=== PATIENT | female | born 1970 | race Caucasian/White ===

== ENCOUNTER → 2017-10-23 09:46 | Outpatient (POV) | payer OTHER, SELFPAY | PROVIDERS: PCP Internal Medicine; Visit Provider Otolaryngology | DX: J30.9 Allergic rhinitis, unspecified (principal) ==

== ENCOUNTER → 2017-11-09 07:56 | Outpatient (CLI) | payer OTHER, SELFPAY ==
--- NOTE | 2017-11-09 07:59 | CT_ITS ---
CT sinus wo con CLINICAL INDICATION: ITS.REASON: FRONTAL HEADACHE, RECURRENT SINUSITIS,CHRONIC VASOMOTOR RHIN ORDERING PHYSICIAN: Haritha Buenrostro MD PATIENT AGE: 47 years COMPARISON: None TECHNIQUE:Axial, sagittal, and coronal images are generated and reviewed without contrast FINDINGS: The paranasal sinuses have an unremarkable appearance. No significant mucosal thickening or air-fluid levels are evident. The ostiomeatal units of the maxillary sinuses are patent. No significant nasal septal deviation. Orbits are unremarkable. No obvious nasopharyngeal mass. Nonspecific bilateral parapharyngeal tonsillar calculi are noted. The mastoid sinuses are unremarkable. TMJs are unremarkable. IMPRESSION: Negative CT of the paranasal sinuses
== END ==
PROVIDERS: PCP Internal Medicine; Visit Provider Otolaryngology
DX: R51 Headache (principal); J32.9 Chronic sinusitis, unspecified; J30.0 Vasomotor rhinitis
CPT/HCPCS: 70486

== ENCOUNTER → 2017-11-27 11:05 | Outpatient (POV) | payer OTHER, SELFPAY | PROVIDERS: PCP Internal Medicine; Visit Provider Otolaryngology | DX: Z00.00 Encounter for general adult medical examination without abnormal findings (principal) ==

== ENCOUNTER → 2017-12-11 10:03 | Outpatient (CLI) | payer OTHER, SELFPAY | PROVIDERS: Visit Provider Otolaryngology | DX: J30.89 Other allergic rhinitis (principal) | CPT/HCPCS: 36415 ==

== ENCOUNTER → 2018-03-11 08:33 | Outpatient (CLI) | payer OTHER, SELFPAY ==
[2018-03-11 09:57] LABS: Hemoglobin A1C 9.9 % (0.0-7.0)
== END ==
PROVIDERS: Visit Provider Internal Medicine
DX: E11.9 Type 2 diabetes mellitus without complications (principal)
CPT/HCPCS: 83036

== ENCOUNTER → 2018-07-02 09:01 | Outpatient (CLI) | payer OTHER, SELFPAY ==
[2018-07-02 09:33] LABS: Hemoglobin A1C 11.2 % (0.0-7.0)
[2018-07-02 10:16] LABS: Alanine Aminotransferase 55 U/L (12-78); Albumin Level 3.8 gm/dL (3.4-5.0); Alkaline Phosphatase 124 U/L (46-116); Aspartate Amino Transferase 40 U/L (15-37); Bilirubin,Total 0.8 mg/dL (0.2-1.0); Blood Urea Nitrogen 13 mg/dL (7-18); Calcium 9.1 mg/dL (8.5-10.1); Carbon Dioxide 31 mmol/L (21.0-32.0); Chloride 99 mmol/L (98-107); Chol/HDL Ratio 4.6 (1-3.5); Cholesterol 202 mg/dL (140-200); Creatinine,Serum 0.93 mg/dL (0.55-1.02); Estimated Glomerular Filt Rate 64 ml/min (>60); GFR (African American) 78 ML/MIN (>60); Globulin 3.7 gm/dl (1.3-3.2); Glucose 293 mg/dL (74-106); HDL Cholesterol 44 mg/dL (29-89); Sodium 140 mmol/L (136-145); Total Protein,Serum 7.5 gm/dL (6.4-8.2)
[2018-07-02 10:34] LABS: Triglycerides 495 mg/dL (30-200)
== END ==
PROVIDERS: PCP Internal Medicine; Visit Provider Internal Medicine
DX: E11.9 Type 2 diabetes mellitus without complications (principal); E78.5 Hyperlipidemia, unspecified; I10 Essential (primary) hypertension
CPT/HCPCS: 36415; 80053; 80061; 83036

== ENCOUNTER → 2018-09-09 08:47 | Outpatient (CLI) | payer OTHER, SELFPAY ==
--- NOTE | 2018-09-09 08:48 | MM_ITS ---
MM Dig screening mamm BI w/CAD CAD Screening COMPARISON: Digital mammograms with CAD 08/02/2017 and 07/20/2016 INDICATION: There is no personal or family history of breast cancer. There has been previous biopsy right breast for benign disease. TECHNIQUE: Standard CC and MLO images were obtained. R2 CAD reviewed. FINDINGS: Prominent diffuse fibro glandular densities are seen throughout both breasts somewhat lessening the sensitivity of mammography. There are 2 biopsy clips again seen right breast. There are few benign-appearing microcalcifications in each breast. There is no suspicious lesion and there are no suspicious microcalcifications. IMPRESSION: Stable exam with diffusely dense parenchymal pattern and no suspicious lesion seen BI-RADS Category: 2 Benign Finding(s) RECOMMENDED FOLLOW-UP: 1YR - 1 YEAR FOLLOW-UP (A letter has been sent to the patient regarding results of the study.)
== END ==
PROVIDERS: PCP Internal Medicine; Visit Provider Nurse Practitioner Obstetrics & Gynecology
DX: Z12.31 Encounter for screening mammogram for malignant neoplasm of breast (principal)
CPT/HCPCS: 77067

== ENCOUNTER → 2019-01-08 09:22 | Outpatient (CLI) | payer OTHER, SELFPAY ==
[2019-01-08 10:53] LABS: Alanine Aminotransferase 47 U/L (12-78); Albumin/Globulin Ratio 1.1 (1.1-1.8); Alkaline Phosphatase 103 U/L (46-116); Anion Gap 16.6 mEq/L (5-15); Aspartate Amino Transferase 29 U/L (15-37); Bilirubin,Total 0.5 mg/dL (0.2-1.0); Blood Urea Nitrogen 16 mg/dL (7-18); Calcium 9.8 mg/dL (8.5-10.1); Carbon Dioxide 27 mmol/L (21.0-32.0); Chloride 100 mmol/L (98-107); Chol/HDL Ratio 4.5 (1-3.5); Cholesterol 180 mg/dL (140-200); Creatinine,Serum 1.01 mg/dL (0.55-1.02); Estimated Glomerular Filt Rate 59 ml/min (>60); GFR (African American) 71 ML/MIN (>60); Globulin 3.8 gm/dl (1.3-3.2); Glucose 147 mg/dL (74-106); HDL Cholesterol 40 mg/dL (29-89); LDL Cholesterol 68 mg/dL (0-130); Potassium 3.6 mmoL/L (3.5-5.1); Sodium 140 mmol/L (136-145); Total Protein,Serum 7.8 gm/dL (6.4-8.2); Triglycerides 359 mg/dL (30-200); VLDL Cholesterol 72 mg/dL (0-40)
[2019-01-08 11:38] LABS: Hemoglobin A1C 6.7 % (0.0-7.0)
[2019-01-10 08:50] LABS: Microalbumin, Urine 26.2 ug/mL (Not Estab.)
== END ==
PROVIDERS: Visit Provider Internal Medicine
DX: E11.9 Type 2 diabetes mellitus without complications (principal); E78.5 Hyperlipidemia, unspecified; I10 Essential (primary) hypertension; Z79.84 Long term (current) use of oral hypoglycemic drugs
CPT/HCPCS: 36415; 80053; 80061; 82043; 83036

== ENCOUNTER → 2019-07-29 16:58 | Outpatient (CLI) | payer OTHER, SELFPAY ==
[2019-07-29 18:35] LABS: Potassium 3.9 mmoL/L (3.5-5.1)
== END ==
PROVIDERS: Visit Provider Internal Medicine
DX: E87.6 Hypokalemia (principal)
CPT/HCPCS: 84132

== ENCOUNTER → 2019-08-01 12:28 | Outpatient (CLI) | payer OTHER, SELFPAY | PROVIDERS: PCP Internal Medicine; Visit Provider Internal Medicine Cardiovascular Disease | DX: R00.2 Palpitations (principal); R07.89 Other chest pain | CPT/HCPCS: 93270 ==

== ENCOUNTER → 2019-08-06 08:27 | Outpatient (CLI) | payer SELFPAY ==
--- NOTE | 2019-08-06 08:30 | CT_ITS ---
PROCEDURE: CT HEART W CALCIUM SCORE CLINICAL HISTORY: screening COMPARISON: No exams were available for comparison TECHNIQUE: Axial images obtained with sagittal and coronal reformats. All CT scans at the facility use one or more dose reduction, viz: automated exposure control, ma/kV adjustment per patient size (including targeted exams where dose is matched to indication, i.e. head), or iterative reconstruction technique. FINDINGS: The coronary artery calcium score is 400 indicating a moderate plaque burden with high cardiovascular disease risk.. Incidental findings include a calcified granuloma in the left lower lobe. Heart size is normal IMPRESSION: Moderate plaque burden with high cardiovascular disease risk Dictated by: Miguel Angel Ayers MD 08/07/2019 03:53 Electronically signed by Miguel Angel Ayers MD in [place] 08/07/2019 03:53
== END ==
PROVIDERS: PCP Internal Medicine; Visit Provider Internal Medicine Cardiovascular Disease
DX: Z13.6 Encounter for screening for cardiovascular disorders (principal)
CPT/HCPCS: 75571

== ENCOUNTER → 2019-08-07 06:55 | Outpatient (CLI) | payer OTHER, SELFPAY ==
--- NOTE | 2019-08-07 | CA_ITS ---
APPROVED REPORT Exam: Pharmacologic Technologist: Alok Burns, Ht: 5 ft 2 in Wt: 212 lbs BSA: 1.96 m2 HR: 73 bpm BP: 127/72 mmHg Rhythm: NSR Indications: Chest pain, Shortness of Air Medical History Medical History: Diabetic ??? Insulin, HTN, Hyperlipidemia, SOB Medications: Losartan,,,,, TopIRAMATE,,,,, SpirOLACTONE,,,,, Janumet,,,,, Pravastaten,,,,, AtenELOL,,,,, TrULicity,,,,, SertraliINE,,,,, Omepazole,,,,, LoraDATINE,,,,, Allergies: CLARITHROMYCIN,CRESTOR,NIACIN,ESCITALOPRAM Cardiac Risk Factors: HTN, Hyperlipidemia, Diabetes (insulin), SOB Stress Test Details Test: LEXISCAN Reversal agent Aminophyline 150.0 mg, given intravenously for SLOW IV PUSH. HR Resting HR: 69 bpm Max Heart Rate (APMHR): 171 bpm Max HR Achieved: 98 bpm Target HR (85% APMHR): 145 bpm % of APMHR: 57 Recovery HR: 94 bpm BP Resting BP: 127.0/72.0 mmHg Max BP: 124.0/65.0 mmHg Recovery BP: 122.0/67.0 mmHg ECG Resting ECG: NSR Clinical Exercise duration: 04:59 min Highest Stage Achieved: Exercise capacity: 1.0 METs Stress ECG Conclusion DURING INFUSION OF LEXISCAN PATIENT HAD SOA,NAUSEA,MALAISE AND HEADCHE WITH MILD CHEST PAIN. NO ARRHYTHMIAS/ECTOPY. NO SIGNIFICANT ST-T CHANGES. UNREMARKABLE LEXISCAN STRESS. MYOVIEW IMAGES REPORTED SEPARATELY. Test Summary RECOVERY 04:00 . . 81 . 124/ 71 . . Stage 1 01:00 . . 88 . . . . Stage 2 01:00 . . 97 . 124/ 65 . . Stage 3 01:00 . . 98 . 108/ 69 . . Stage 4 01:00 . . 95 . 116/ 67 . . Stage 4 01:59 . . 94 . 123/ 71 . Stop exercise at 04:59 RECOVERY 01:00 . . 92 . 122/ 67 . . RECOVERY 02:00 . . 87 . 122/ 67 . . RECOVERY 03:00 . . 82 . 119/ 71 . . RECOVERY 04:00 . . 81 . 124/ 71 . . RECOVERY 05:00 . . 80 . 124/ 71 . . RECOVERY 06:00 . . 76 . 123/ 77 . . RECOVERY 07:00 . . 77 . 123/ 77 . . RECOVERY 08:00 . . 76 . 116/ 72 . . RECOVERY 09:00 . . 74 . 116/ 72 . . RECOVERY 10:00 . . 74 . 116/ 72 . . RECOVERY 11:00 . . 0 . 116/ 72 . . RECOVERY 11:23 . . 0 . 116/ 72 . . Electronically signed by : Andres Paul, 08/07/2019 15:05:19
--- NOTE | 2019-08-07 06:58 | CA_ITS ---
APPROVED REPORT EXAM: Comprehensive 2D, Doppler, and color-flow Echocardiogram Shrinking Machine Operator: Laura Cifuentes RDCS Ht: 5 ft 2 in Wt: 214lbs BSA: 1.97 BP: 145/84 mmHg Indications: CP, SOA,SANDEEP ,PALPS,DM,HLP,ABN EKG 2D Dimensions LVOT 1.60 cm (M/F) 1.5-2.5 M-Mode Dimensions RVDd 2.20 cm (0.9-2.6) LA Diam 3.30 cm (1.9-4.0) LVDd 5.10 cm (3.5-5.7) Ao Diam 2.90 cm (2.0-3.7) LVDs 4.00 cm (3.5-5.7) AV Cusp 1.60 cm (1.5-2.6) IVSd 0.80 cm (0.6-1.1) PWd 0.80 cm (0.6-1.1) EF (Teich) 43.50% FS 21.60% EDV (Teich) 124.00 mL ESV (Teich) 70.00 mL LV Diastology E/A Ratio 1.3 MED E' 5.75 (< 7 cm/sec) E'/MED E' Ratio 14.90 (>14) LAT E' 8.38 (<10 cm/sec) E/LAT E' Ratio 10.20 (>14) Mitral Valve MV E Max [place]. 85.40 (40-130 cm/s) MV A Velocity 67.60 (40-130 cm/s) E/A Ratio 1.30 Left Ventricle Left atrium is mildly enlarged, left ventricle is normal size, mild concentric left ventricular hypertrophy, visually estimated ejection fraction 50%, there is moderate hypokinesis involving the inferior basal wall. Endocardial surfaces are poorly visualized. Grade 1 diastolic dysfunction seen with tissue Doppler evidence of raise left atrial pressure. Right Ventricle Right atrium and right ventricle mildly enlarged with normal contractility. Aortic Valve Aortic valve is thickened and calcified, there is no aortic stenosis aortic insufficiency. Mitral Valve Mitral valve is grossly normal, there is mild mitral regurgitation. Tricuspid Valve Tricuspid valve is grossly normal, there is mild tricuspid regurgitation. Tricuspid regurgitation jet velocity is inadequate for calculation of the right ventricular systolic pressure Pulmonic Valve Pulmonic valve is poorly visualized. Great Vessels Aortic root is normal size. Pericardium No significant pericardial effusion noted. Conclusion 1. Mild biatrial enlargement, normal left ventricular size, mild concentric left ventricular hypertrophy, visually estimated ejection fraction 50% with segmental wall motion abnormality described above, grade 1 diastolic dysfunction seen with tissue Doppler evidence of raise left atrial pressure. 2. Mildly enlarged right ventricle with normal contractility. 3. Mild mitral and tricuspid regurgitation. 4. No significant pericardial effusion noted. Electronically signed by : Andres Paul, 08/07/2019 14:09:48
--- NOTE | 2019-08-07 06:58 | NM_ITS ---
APPROVED REPORT Exam: Nuclear Stress Test Indication: SHORT OF AIR, PALPITATIONS AND FATIQUE Patient Location: Outpatient Stress Tech: Regina Elina [place] Tech:BRANDON Rios RT(R)(N) Ht: 5 ft 2 in Wt: 212 lbs Bra Size: 40d HR: 73 bpm BP: 127/72 mmHg BSA: 1.96 m2 BMI: 38.7 History: SHORT OF AIR, PALPITATIONS AND FATIQUE Procedure: Patient received a 0.4 mg of intravenous Lexiscan, resting heart rate 73 bpm, resting blood pressure 127/72 mmHg, with Lexiscan maximum heart rate achived was 80 bpm which is Less than 85 % of the maximum predicted heart rate and blood pressure was 124/65 mmHg. Electrocardiogram Resting electrocardiogram showed sinus rhythm nonspecific ST-T changes, with Lexiscan there is less than 1.[address] segment depression noted from the baseline EKG. The EKG portion of the Lexiscan Myoview is nondiagnostic. Cardiac Stress and Resting SPECT Images: Cardiac Stress and Resting SPECT images were obtained using technetium 99m Myoview 29.8 mCi stress and 10.3 mCi at rest. Gated SPECT with analysis of segmental wall motion and calculation of the ejection fraction also done. Cardiac stress and resting SPECT images show a fixed defect involving the anterolateral wall with normal contractility and the gated SPECT and normal perfusion of the apex is likely secondary to soft tissue attenuation, no reversible ischemia seen. Computer derived ejection fraction is over 65% with no regional wall motion abnormality, right ventricle is normal size and contractility. Conclusion: 1. The EKG portion of the Lexiscan Myoview is nondiagnostic. 2. No scintigraphic evidence of reversible ischemia seen, computer derived ejection fraction is over 65% with no regional wall motion abnormality, right ventricle is normal size and contractility. A fixed defect in the anterolateral wall is likely secondary to soft tissue attenuation. 3. Likely normal Lexiscan Myoview study. Electronically signed by : Andres Paul, 08/07/2019 15:15:49
--- NOTE | 2019-08-07 09:53 | HMH.ITSHM ---
Current Home Medications as stated by this patient Bonny Ye or account executive sales representative. [] atenolol janumet loratadine losartan topiramate omeprazole pravastatin spironolactone sertraline
== END ==
PROVIDERS: PCP Internal Medicine; Visit Provider Internal Medicine Cardiovascular Disease
DX: G47.33 Obstructive sleep apnea (adult) (pediatric) (principal); R06.83 Snoring; E11.69 Type 2 diabetes mellitus with other specified complication; E78.5 Hyperlipidemia, unspecified; E87.6 Hypokalemia; K21.9 Gastro-esophageal reflux disease without esophagitis; R00.2 Palpitations; R06.09 Other forms of dyspnea; R07.89 Other chest pain
CPT/HCPCS: 78452; 93017; 93306; 95806; A9502; J2785

== ENCOUNTER → 2019-08-11 08:52 | Outpatient (CLI) | payer OTHER, SELFPAY ==
[2019-08-11 10:40] LABS: Anion Gap 14.3 mEq/L (5-15); Blood Urea Nitrogen 21 mg/dL (7-18); Calcium 9.2 mg/dL (8.5-10.1); Carbon Dioxide 28 mmol/L (21.0-32.0); Chloride 100 mmol/L (98-107); Creatinine,Serum 1.12 mg/dL (0.55-1.02); Estimated Glomerular Filt Rate 52 ml/min (>60); GFR (African American) 63 ML/MIN (>60); Glucose 129 mg/dL (74-106); Potassium 3.3 mmoL/L (3.5-5.1); Sodium 139 mmol/L (136-145)
== END ==
PROVIDERS: Visit Provider Internal Medicine Cardiovascular Disease
DX: E11.69 Type 2 diabetes mellitus with other specified complication (principal); E78.5 Hyperlipidemia, unspecified; E87.6 Hypokalemia; G47.33 Obstructive sleep apnea (adult) (pediatric); K21.9 Gastro-esophageal reflux disease without esophagitis; R00.2 Palpitations; R06.09 Other forms of dyspnea; R06.83 Snoring; R07.89 Other chest pain
CPT/HCPCS: 80048; 83880

== ENCOUNTER → 2019-08-18 09:19 | Outpatient (CLI) | payer OTHER, SELFPAY ==
[2019-08-18 10:49] LABS: Anion Gap 11.8 mEq/L (5-15); Blood Urea Nitrogen 17 mg/dL (7-18); Calcium 9.2 mg/dL (8.5-10.1); Carbon Dioxide 28 mmol/L (21.0-32.0); Chloride 102 mmol/L (98-107); Creatinine,Serum 1.08 mg/dL (0.55-1.02); Estimated Glomerular Filt Rate 54 ml/min (>60); GFR (African American) 65 ML/MIN (>60); Glucose 136 mg/dL (74-106); Potassium 3.8 mmoL/L (3.5-5.1); Sodium 138 mmol/L (136-145)
== END ==
PROVIDERS: Visit Provider Physician Assistant
DX: R00.0 Tachycardia, unspecified (principal); E87.6 Hypokalemia; K21.9 Gastro-esophageal reflux disease without esophagitis; R94.31 Abnormal electrocardiogram [ECG] [EKG]; R06.83 Snoring; R07.89 Other chest pain; E78.5 Hyperlipidemia, unspecified; R00.2 Palpitations; E11.9 Type 2 diabetes mellitus without complications; G47.33 Obstructive sleep apnea (adult) (pediatric); R06.00 Dyspnea, unspecified
CPT/HCPCS: 36415; 80048

== ENCOUNTER → 2019-08-20 14:57 | Outpatient (CLI) | payer OTHER, SELFPAY ==
--- NOTE | 2019-08-20 15:05 | CT_ITS ---
PROCEDURE: CT CHEST WO/W CON CLINCAL INDICATION: dyspnea Shortness of breath, fullness feeling in mid chest, enlarged right heart COMPARISON: CT HEART W CALCIUM SCORE from 08/06/2019 TECHNIQUE: IV Contrast: 75ml Optiray 350 Axial images obtained with sagittal and coronal reformats. All CT scans at the facility use one or more dose reduction, viz: automated exposure control, ma/kV adjustment per patient size (including targeted exams where dose is matched to indication, i.e. head), or iterative reconstruction technique. FINDINGS: HEART,AORTA,PULMONARY ARTERIES there are coronary artery calcifications. No evidence of aortic aneurysm MEDIASTINAL AND HILAR STRUCTURES: Thyroid gland is enlarged. There is nodularity of the isthmus with a nodular area in the isthmus at 1.6 cm. Consider thyroid ultrasound further evaluation. There are few scattered small mediastinal lymph nodes measuring up to 1.3 cm in the left periaortic region at the aortic arch. No mediastinal or hilar mass. LUNGS: 3 mm subpleural nodule right upper lobe anteriorly. Atelectatic or fibrotic change right costophrenic angle. 4 mm subpleural nodule left apex. Calcified granuloma left lung base posteriorly PLEURAL SPACES: No significant effusion. No evidence of pneumothorax. BONY STRUCTURES: Degenerative changes thoracic spine. LYMPH NODES: No enlarged lymph nodes evident. UPPER ABDOMEN: Status post cholecystectomy ADDITIONAL FINDINGS: No other significant abnormalities. IMPRESSION: 1. No acute findings. 2. Enlarged thyroid gland with nodularity of the isthmus. Consider ultrasound for further evaluation. 3. 3 mm right upper lobe and 4 mm left upper lobe nodules. These are nonspecific and too small to categorize. Consider 12 month follow-up 4. Coronary artery calcifications Dictated by: Miguel Angel Ayers MD 08/21/2019 04:48 Electronically signed by Miguel Angel Ayers MD in [place] 08/21/2019 04:48
== END ==
PROVIDERS: PCP Internal Medicine; Visit Provider Physician Assistant
DX: R06.09 Other forms of dyspnea (principal); E78.5 Hyperlipidemia, unspecified; E11.69 Type 2 diabetes mellitus with other specified complication; Z79.84 Long term (current) use of oral hypoglycemic drugs; K21.9 Gastro-esophageal reflux disease without esophagitis; G47.33 Obstructive sleep apnea (adult) (pediatric)
CPT/HCPCS: 71270; Q9967

== ENCOUNTER → 2019-08-29 13:26 | Outpatient (CLI) | payer OTHER, SELFPAY ==
--- NOTE | 2019-08-29 13:27 | US_ITS ---
PROCEDURE: US THYROID CLINICAL INDICATION: dyspnea, thyroid nodules The thyroid nodule seen on recent CT scan COMPARISON: CT CHEST WO/W CON from 08/20/2019 FINDINGS: Right lobe: 4.6 x 1.5 x 1.6 cm the. There is heterogeneous echogenicity of the lower pole with 2 cystic areas at 5 and 4 mm. These may be part of the larger nodule at 15 x 12 mm. This is difficult to ascertain and follow-up is suggested. Left lobe: 4.6 x 1.6 x 2.1 cm. There are 3 cysts of the left lobe the largest at 13 mm. Isthmus: Thickened at 7 mm Additional findings: IMPRESSION: Bilateral thyroid cysts. Two cyst on the right could be part of the larger nodule versus heterogeneous echogenicity. Suggest 6 month follow-up Dictated by: Miguel Angel Ayers MD 08/29/2019 16:20 Electronically signed by Miguel Angel Ayers MD in [place] 08/29/2019 16:20
== END ==
PROVIDERS: PCP Internal Medicine; Visit Provider Physician Assistant
DX: E04.1 Nontoxic single thyroid nodule (principal)
CPT/HCPCS: 76536

== ENCOUNTER → 2019-09-03 11:04 | Outpatient (CLI) | payer OTHER, SELFPAY ==
--- NOTE | 2019-09-03 11:08 | XR_ITS ---
PROCEDURE: XR CHEST 2V CLINICAL HISTORY: COUGH, CONGESTION, ARTIS COMPARISON: CXR CHEST(2 VIEWS-NOT PORTABLE) from 01/12/2014 CXR CHEST(2 VIEWS-NOT PORTABLE) from 11/20/2014 XR CHEST 2V from 07/25/2019 CT CHEST WO/W CON from 08/20/2019 FINDINGS: The cardiomediastinal silhouette and pulmonary vascularity are within normal limits. The lungs are clear without infiltrates, suspicious nodules, or pleural effusions. No acute bony abnormalities. IMPRESSION: No acute findings. Dictated by: Miguel Angel Ayers MD 09/03/2019 11:26 Electronically signed by Miguel Angel Ayers MD in [place] 09/03/2019 11:26
== END ==
PROVIDERS: PCP Internal Medicine; Visit Provider Internal Medicine
DX: R05 Cough (principal); R09.81 Nasal congestion; G44.83 Primary cough headache
CPT/HCPCS: 71046

== ENCOUNTER → 2019-09-08 09:41 | Outpatient (CLI) | payer OTHER, SELFPAY | PROVIDERS: Visit Provider Internal Medicine Cardiovascular Disease | DX: R06.09 Other forms of dyspnea (principal); E11.69 Type 2 diabetes mellitus with other specified complication; E78.5 Hyperlipidemia, unspecified; G47.33 Obstructive sleep apnea (adult) (pediatric); K21.9 Gastro-esophageal reflux disease without esophagitis; R06.83 Snoring | CPT/HCPCS: 36415; 83880 ==

== ENCOUNTER → 2019-10-07 09:12 | Outpatient (CLI) | payer OTHER, SELFPAY ==
[2019-10-07 10:33] LABS: Alanine Aminotransferase 48 U/L (12-78); Albumin Level 3.7 gm/dL (3.4-5.0); Albumin/Globulin Ratio 1.1 (1.1-1.8); Alkaline Phosphatase 99 U/L (46-116); Anion Gap 16.6 mEq/L (5-15); Aspartate Amino Transferase 6 U/L (15-37); Bilirubin,Total 0.5 mg/dL (0.2-1.0); Blood Urea Nitrogen 16 mg/dL (7-18); Calcium 8.9 mg/dL (8.5-10.1); Carbon Dioxide 28 mmol/L (21.0-32.0); Chloride 97 mmol/L (98-107); Cholesterol 178 mg/dL (140-200); Creatinine,Serum 0.94 mg/dL (0.55-1.02); Estimated Glomerular Filt Rate 63 ml/min (>60); GFR (African American) 77 ML/MIN (>60); Globulin 3.4 gm/dl (1.3-3.2); Glucose 144 mg/dL (74-106); HDL Cholesterol 45 mg/dL (29-89); LDL Cholesterol 77 mg/dL (0-130); Potassium 3.6 mmoL/L (3.5-5.1); Sodium 138 mmol/L (136-145); Total Protein,Serum 7.1 gm/dL (6.4-8.2); Triglycerides 280 mg/dL (30-200); VLDL Cholesterol 56 mg/dL (0-40)
== END ==
PROVIDERS: Visit Provider Internal Medicine
DX: E11.9 Type 2 diabetes mellitus without complications (principal); E78.5 Hyperlipidemia, unspecified; I10 Essential (primary) hypertension
CPT/HCPCS: 36415; 80053; 80061; 83036

== ENCOUNTER → 2020-02-27 14:16 | Outpatient (CLI) | payer OTHER, SELFPAY ==
--- NOTE | 2020-02-27 14:23 | XR_ITS ---
PROCEDURE: XR MULTIPLE SPINE 6+V CLINICAL INDICATION: CERVICALGIA,LUMBAGO W/RT SCIATICA COMPARISON: CT CHEST WO/W CON from 08/20/2019 FINDINGS: Cervical spine five views: Normal alignment. No fracture or dislocation. No lytic or blastic change. There are prominent transverse processes C7 on both sides. Incidental carotid artery calcifications are noted. The foramina are patent. Lumbar spine five views: Normal alignment. Minimal endplate hypertrophic changes at L 2 to L5. Slight decrease in the disc space at L3-L4. No fracture or dislocation. No lytic or blastic change. 3 mm stone is present along the lower pole of the right kidney with a 4 mm stone along the lower pole of the left kidney IMPRESSION: 1. Prominent bilateral transverse processes of the cervical spine. 2. Mild degenerative changes of the lumbar 3. No acute finding 4. Bilateral nephrolithiasis Dictated by: Miguel Angel Ayers MD 02/27/2020 15:33 Electronically signed by Miguel Angel Ayers MD in [place] 02/27/2020 15:33
== END ==
PROVIDERS: PCP Internal Medicine; Visit Provider Internal Medicine
DX: M54.41 Lumbago with sciatica, right side (principal); M54.2 Cervicalgia
CPT/HCPCS: 72084

== ENCOUNTER → 2020-03-19 14:54 | Outpatient (CLI) | payer OTHER, SELFPAY | PROVIDERS: PCP Internal Medicine; Visit Provider Nurse Practitioner Family | DX: G47.33 Obstructive sleep apnea (adult) (pediatric) (principal) | CPT/HCPCS: 94762 ==

== ENCOUNTER → 2020-05-26 09:55 | Outpatient (CLI) | payer OTHER, MEDICAID, SELFPAY ==
[2020-05-26 10:54] LABS: Hemoglobin A1C 8.6 % (4.0-6.0)
[2020-05-26 11:04] LABS: Erythrocyte Sedimentation Rate 26 mm/hr (0-20)
[2020-05-26 12:06] LABS: Alanine Aminotransferase 59 U/L (12-78); Albumin Level 4.4 g/dl (3.5-5.0); Albumin/Globulin Ratio 1.5 (1.1-1.8); Alkaline Phosphatase 152 U/L (38-126); Anion Gap 13.9 mEq/L (5-15); Aspartate Amino Transferase 69 U/L (14-36); Bilirubin,Total 0.7 mg/dl (0.2-1.3); Blood Urea Nitrogen 13 mg/dl (7-17); Calcium 9.3 mg/dl (8.4-10.2); Carbon Dioxide 31 mmol/L (22.0-30.0); Chloride 94 mmol/L (98-107); Chol/HDL Ratio 3.2 (1-3.5); Cholesterol 168 mg/dl (140-200); Estimated Glomerular Filt Rate 89 ml/min (>60); GFR (African American) 107 ML/MIN (>60); Globulin 2.9 g/dL (1.3-3.2); Glucose 205 mg/dl (74-100); HDL Cholesterol 52 mg/dl (40-60); Potassium 3.9 mmoL/L (3.5-5.1); Sodium 135 mmol/L (136-145); Total Protein,Serum 7.3 g/dl (6.3-8.2); Triglycerides 331 mg/dl (30-150); Uric Acid 4.6 mg/dl (2.5-6.2); VLDL Cholesterol 66 mg/dL (0-40)
[2020-05-26 14:36] LABS: Creatinine,Urine Random 136 mg/dL (Not Estab.)
[2020-05-27 08:57] LABS: RA Latex Turbid. <10.0 IU/mL (0.0-13.9)
[2020-05-28 09:10] LABS: Antinuclear Antibodies, IFA Negative (.)
== END ==
PROVIDERS: Visit Provider Internal Medicine
DX: E11.65 Type 2 diabetes mellitus with hyperglycemia (principal); E66.01 Morbid (severe) obesity due to excess calories; E78.5 Hyperlipidemia, unspecified; I10 Essential (primary) hypertension; M25.50 Pain in unspecified joint
CPT/HCPCS: 36415; 80053; 80061; 82043; 82570; 83036; 84550; 85651; 86038; 86431

== ENCOUNTER → 2020-06-04 14:23 | Outpatient (CLI) | payer OTHER, MEDICAID, SELFPAY ==
--- NOTE | 2020-06-04 14:26 | US_ITS ---
PROCEDURE: US THYROID CLINICAL INDICATION: 6 MONTH FOLLOW UP FOR NODULE Follow-up thyroid nodules COMPARISON: US US THYROID from 08/29/2019 FINDINGS: Right lobe: 4.2 x 1.7 x 1.6 cm. There is a hypoechoic nodule in the lower pole at 8 mm not significantly changed. Left lobe: 4.7 x 1.6 x 2 cm. Several hypoechoic nodules are present the largest in the mid polar region at 14 x 7 mm not significantly changed consistent with a cyst. Isthmus: Thickened at 6 mm Additional findings: IMPRESSION: Mildly enlarged thyroid with bilateral cyst not significantly changed Dictated by: Miguel Angel Ayers MD 06/04/2020 16:20 Miguel Angel Ayers MD in [place] 06/04/2020 16:20
== END ==
PROVIDERS: PCP Internal Medicine; Visit Provider Internal Medicine
DX: E04.1 Nontoxic single thyroid nodule (principal)
CPT/HCPCS: 76536

== ENCOUNTER → 2020-06-17 11:00 | Outpatient (CLI) | payer OTHER, MEDICAID, SELFPAY ==
--- NOTE | 2020-06-17 11:04 | XR_ITS ---
PROCEDURE: XR WRIST LT MIN 3V CLINICAL INDICATION: left wrist pain/ CTS COMPARISON: CR XR WRIST RT MIN 3V from 06/17/2020 FINDINGS: No fracture or dislocation. No lytic or blastic change. There is normal mineralization. The joint spaces are well-preserved. No significant degenerative/arthritic changes. No erosive changes evident. Other findings:None. IMPRESSION: No acute findings. Dictated by: Miguel Angel Ayers MD 06/17/2020 11:26 Miguel Angel Ayers MD in [place] 06/17/2020 11:26
--- NOTE | 2020-06-17 11:04 | XR_ITS ---
PROCEDURE: XR WRIST RT MIN 3V CLINICAL INDICATION: RIGHT WRIST PAIN/ CTS COMPARISON: No exams were available for comparison FINDINGS: No fracture or dislocation. No lytic or blastic change. There is normal mineralization. The joint spaces are well-preserved. No significant degenerative/arthritic changes. No erosive changes evident. Other findings:None. IMPRESSION: No acute findings. Dictated by: Miguel Angel Ayers MD 06/17/2020 11:26 Miguel Angel Ayers MD in [place] 06/17/2020 11:26
== END ==
PROVIDERS: PCP Internal Medicine; Visit Provider Orthopaedic Surgery
DX: M25.531 Pain in right wrist (principal); M25.532 Pain in left wrist
CPT/HCPCS: 73110

== ENCOUNTER 2020-06-19 18:48 | Emergency (ER) | payer OTHER, MEDICAID, SELFPAY ==
--- NOTE | 2020-06-19 18:52 | HMH.EDGENADL ---
ED Disposition Clinical Impression: Right flank pain, Nephrolithiasis Disposition: Home, Self-Care Condition on Discharge: Good Additional Instructions: Take medications as prescribed. Follow-up with your PCP for further evaluation. If you have any new, changing, worsening, or concerning symptoms, come back to the emergency department. Prescriptions: Hydrocodone/Acetaminophen [[place] 5-325 Tablet] 1 each PO Q8 3 Days #9 tablet Tamsulosin HCl 0.4 mg PO DAILY 5 Days #5 cap Transmission Status: Sent to [facility] Ondansetron [Zofran 4mg ODT] 4 mg PO Q8 PRN 3 Days #9 tab.rapdis PRN Reason: Nausea Transmission Status: Sent to [facility] Referrals: Maurice Kessler [Primary Care Provider] - Time of Disposition: 19:42 - Critical Care Critical Care Time: No Attestation: On , the high probability of a clinically significant, sudden or life threatening deterioration of the following system(s) required my full and direct attention, intervention and personal management. The time I documented below is in addition to time spent performing reported procedures but includes the following listed in this critical care notation. Medical Decision Making - Medical Records Medical records reviewed: Yes: I reviewed the patient's medical records. MR Comment: 50-year-old female presents emergency department with right flank pain. She has mild CVA tenderness on the right. She arrives to the ED hemodynamically stable, with reassuring vital signs, and looks well on exam. Nephrolithiasis and pyelonephritis considered. I doubt acute aortic catastrophe. She is neurologically intact throughout. Will get labs including urine and CT scan and reassess. On reassessment, patient remains well. 2mm kidney stone at UVJ on CT scan, mild hydronephrosis, patient feels some better after treatment here. - Alex Inquiry Pt receiving controlled substance: No Vital Signs: 06/19/20 18:56 Temperature 98.5 F Temperature Source Oral Pulse Rate [Right Radial] 98 H Respiratory Rate 17 Blood Pressure [Right Arm] 168/93 H Blood Pressure Mean [Right Arm] 118 02 Sat by Pulse Oximetry 98 Oxygen Delivery Method Room Air - Lab Data Lab Results 06/19/20 19:05: WBC 11.0 H, RBC 4.31, Hgb 13.7, Hct 39.4, MCV 91.4, MCH 31.8 H, MCHC 34.8, RDW 14.3, Plt Count 234, MPV 7.4, Neut % (Auto) 73.5, Lymph % (Auto) 18.5, [place] % (Auto) 5.1, Eos % (Auto) 2.4, Baso % (Auto) 0.5, Neut # (Auto) 8.1 H, Lymph # (Auto) 2.0, [place] # (Auto) 0.6, Eos # (Auto) 0.3, Baso # (Auto) 0.1 06/19/20 19:10: Urine Color Yellow, Urine Appearance Clear, Urine pH 7.0, Ur Specific [place] 1.020, Urine Protein Negative, Urine Glucose (UA) 3+, Urine Ketones Negative, Urine Blood 1+, Urine Nitrate Negative, Urine Bilirubin Negative, Urine Urobilinogen 0.2, Ur Leukocyte Esterase Negative, Urine RBC 5-10, Ur Squamous Epith Cells 3-5 Result diagrams: 06/19/20 19:05 Orders (Tests/Meds): ED MEDICATIONS Generic Name Dose Route Start Last Admin Trade Name Freq PRN Reason Stop Dose Admin Sodium Chloride 1,000 mls @ 999 mls/hr 06/19/20 19:15 06/19/20 19:33 Sod Chlor 0.9% 1000ml Bag IV 06/19/20 20:15 999 mls/hr .Q1H1M ЕЛЕНА Administration Tamsulosin HCl 0.4 mg 06/19/20 21:00 Flomax 0.4mg Capsule PO 07/19/20 20:59 HS ЕЛЕНА Discontinued Medications Generic Name Dose Route Start Last Admin Trade Name Freq PRN Reason Stop Dose Admin Ketorolac Tromethamine 15 mg 06/19/20 19:38 Toradol 30mg/Ml Vial IV 06/19/20 19:39 ONCE ONE Morphine Sulfate 2 mg 06/19/20 19:08 06/19/20 19:36 Morphine 2mg/Ml Syringe IV 06/19/20 19:09 2 mg ONCE ONE Administration Ondansetron HCl 4 mg 06/19/20 19:09 06/19/20 19:36 Zofran 4mg/2ml Vial IV 06/19/20 19:10 4 mg ONCE ONE Administration ORDERS Category Date Time Status CT abdomen pelvis wo con Stat Cat Scan 06/19/20 18:59 Taken Amylase Stat Lab 06/19/20 19:05 Received Comprehensive [place]
[2020-06-19 18:56] VITALS: BP 168/93; PULSE 98; RESP 17; TEMP 36.9; O2SAT 98; BMI 40.9
--- NOTE | 2020-06-19 18:59 | CT_ITS ---
PROCEDURE: CT ABDOMEN PELVIS WO CON CLINICAL INDICATION: right flank pain Right flank pain COMPARISON: No exams were available for comparison TECHNIQUE: Axial images obtained with sagittal and coronal reformats. All CT scans at the facility use one or more dose reduction, viz: automated exposure control, ma/kV adjustment per patient size (including targeted exams where dose is matched to indication, i.e. head), or iterative reconstruction technique. FINDINGS: LOWER THORAX: There is minimal atelectatic change in the right lung base laterally. ABDOMEN & PELVIS: There is mild diffuse hepatic steatosis. There are post cholecystectomy changes. The spleen, adrenal glands, pancreas, has an unremarkable appearance there are nonobstructing bilateral renal calculi measuring up to 5 mm in the lower pole on the left. There is mild dilatation of the right renal pelvicaliceal system and right ureter secondary to a 3 mm stone at the right ureterovesical junction. There is scattered small mesenteric and retroperitoneal lymph nodes. There is mild distension of the stomach filled with particular matter. No intestinal obstruction or free air. The bowel gas pattern is nonspecific. There is a 4 x 3 cm cystic lesion in the right adnexa a 3 cm cystic lesion in the left adnexa. There are surgical clips in the right lateral abdominal area and a clip in the anterior pelvic region. No acute bony anomalies. IMPRESSION: 1. Mild right hydronephrosis and ureteral dilatation secondary to a 3 mm stone in the right ureterovesical junction with other bilateral renal calculi. 2. Bilateral ovarian cysts Dictated by: Miguel Angel Ayers MD 06/20/2020 07:29 Miguel Angel Ayers MD in [place] 06/20/2020 07:29
[2020-06-19 19:17] LABS: Microscopic, Urine URINE MICROSCOPIC (MICROSCOPIC)
[2020-06-19 19:19] LABS: Basophils # 0.1 K/mm3 (0-0.2); Basophils % 0.5 % (0.1-2.0); Eosinophils # 0.3 K/mm3 (0.0-0.4); Eosinophils % 2.4 % (0.1-12.0); Hematocrit 39.4 % (37.0-47.0); Hemoglobin 13.7 g/dL (12.2-16.2); Lymphocytes % 18.5 % (10-50); Mean Corpuscular HGB Conc 34.8 g/dL (31.8-35.4); Mean Corpuscular Hemoglobin 31.8 pg (27.0-31.2); Mean Corpuscular Volume 91.4 fl (81-99); Mean Platelet Volume 7.4 fl (7.4-10.4); Monocytes # 0.6 K/mm3 (0.1-1.0); Monocytes % 5.1 % (1.7-9.3); Neutrophils # 8.1 K/mm3 (1.8-7.8); Neutrophils % 73.5 % (37.0-80.0); Platelet Count 234 K/mm3 (142-424); Red Blood Count 4.31 M/mm3 (4.20-5.40); Red Cell Distribution Width 14.3 % (11.5-17.5)
[2020-06-19 19:24] LABS: Appearance,Urine CLEAR (Clear); Bilirubin,Urine Negative (Negative); Blood, Urine 1+ (Negative); Color,Urine YELLOW (Yellow); Glucose,Urine (UA) 3+ (Negative); Ketones,Urine Negative (Negative); Leukocyte Esterase,Urine Negative (Negative); Nitrate,Urine Negative (Negative); Protein,Urine Negative (Negative); Urobilinogen,Urine 0.2 EU/dl (0.2)
[2020-06-19 19:33] LABS: Alanine Aminotransferase 49 U/L (12-78); Albumin Level 4.5 g/dl (3.5-5.0); Albumin/Globulin Ratio 1.3 (1.1-1.8); Alkaline Phosphatase 165 U/L (38-126); Amylase 163 U/L (30-110); Anion Gap 15.8 mEq/L (5-15); Aspartate Amino Transferase 54 U/L (14-36); Bilirubin,Total 0.6 mg/dl (0.2-1.3); Blood Urea Nitrogen 18 mg/dl (7-17); Calcium 9.8 mg/dl (8.4-10.2); Carbon Dioxide 29 mmol/L (22.0-30.0); Chloride 96 mmol/L (98-107); Creatinine Clearance Estimated 120 mL/min (50-200); Estimated Glomerular Filt Rate 66 ml/min (>60); GFR (African American) 80 ML/MIN (>60); Globulin 3.5 g/dL (1.3-3.2); Glucose 296 mg/dl (74-100); Lipase 129 U/L (23-300); Potassium 3.8 mmoL/L (3.5-5.1); Sodium 137 mmol/L (136-145)
[2020-06-19 20:52] VITALS: BP 144/83; PULSE 86; RESP 18; O2SAT 97
[2020-06-19 21:00] VITALS: BP 146/83; PULSE 87; RESP 16; TEMP 36.9; O2SAT 98
== END 2020-06-19 21:14 | disposition home or self-care (01) ==
PROVIDERS: Emergency Medicine; Emergency Provider Emergency Medicine; PCP Internal Medicine
DX: N20.0 Calculus of kidney (principal); E78.5 Hyperlipidemia, unspecified; K21.9 Gastro-esophageal reflux disease without esophagitis; E11.9 Type 2 diabetes mellitus without complications; F41.8 Other specified anxiety disorders; G43.709 Chronic migraine without aura, not intractable, without status migrainosus; Z88.1 Allergy status to other antibiotic agents; Z79.899 Other long term (current) drug therapy
CPT/HCPCS: 74176; 80053; 81001; 82150; 83690; 85025; 96365; 96375; 99284; J2405

== ENCOUNTER → 2020-07-26 09:16 | Outpatient (CLI) | payer OTHER, MEDICAID, SELFPAY ==
[2020-07-26 09:19] LABS: MANUAL DIFFERENTIAL MANUAL DIFFERENTIAL (MANUAL DIFF)
[2020-07-26 09:57] LABS: Basophils % 0.4 % (0.1-2.0); Eosinophils # 0.2 K/mm3 (0.0-0.4); Eosinophils % 1.9 % (0.1-12.0); Hematocrit 40.7 % (37.0-47.0); Lymphocytes # 1.9 K/mm3 (0.7-4.5); Lymphocytes % 21.2 % (10-50); Mean Corpuscular HGB Conc 34.4 g/dL (31.8-35.4); Mean Corpuscular Hemoglobin 31.2 pg (27.0-31.2); Mean Corpuscular Volume 90.7 fl (81-99); Mean Platelet Volume 7.3 fl (7.4-10.4); Monocytes # 0.5 K/mm3 (0.1-1.0); Monocytes % 5.5 % (1.7-9.3); Neutrophils # 6.2 K/mm3 (1.8-7.8); Neutrophils % 71.1 % (37.0-80.0); Platelet Count 227 K/mm3 (142-424); Red Blood Count 4.49 M/mm3 (4.20-5.40); Red Cell Distribution Width 14.4 % (11.5-17.5); White Blood Count 8.8 K/mm3 (4.8-10.8)
[2020-07-26 10:52] LABS: Alanine Aminotransferase 47 U/L (12-78); Albumin Level 4.5 g/dl (3.5-5.0); Albumin/Globulin Ratio 1.4 (1.1-1.8); Alkaline Phosphatase 145 U/L (38-126); Anion Gap 14.7 mEq/L (5-15); Aspartate Amino Transferase 58 U/L (14-36); Bilirubin,Total 0.7 mg/dl (0.2-1.3); Blood Urea Nitrogen 16 mg/dl (7-17); Calcium 9.9 mg/dl (8.4-10.2); Carbon Dioxide 31 mmol/L (22.0-30.0); Chloride 96 mmol/L (98-107); Estimated Glomerular Filt Rate 59 ml/min (>60); GFR (African American) 71 ML/MIN (>60); Globulin 3.2 g/dL (1.3-3.2); Glucose 141 mg/dl (74-100); Potassium 3.7 mmoL/L (3.5-5.1); Sodium 138 mmol/L (136-145); Total Protein,Serum 7.7 g/dl (6.3-8.2)
[2020-07-26 10:59] LABS: Coronavirus 19 IgG Antibody Negative (Negative); Coronavirus 19 IgM Antibody Negative (Negative)
[2020-07-26 12:06] LABS: Eosinophils % 1 % (0-3); Lymphocytes % 21 % (10-50); Monocytes % 7 % (2-9); Neutrophils % 70 % (42-76); Platelet Estimate Normal; RBC Morphology Normal; Total Cells Counted 100
== END ==
PROVIDERS: Visit Provider Orthopaedic Surgery
DX: Z01.818 Encounter for other preprocedural examination (principal); M65.30 Trigger finger, unspecified finger; G56.01 Carpal tunnel syndrome, right upper limb
CPT/HCPCS: 36415; 80053; 85007; 85014; 85018; 85048; 85049; 86328

== ENCOUNTER 2020-07-27 06:07 | Day surgery (SDC) | payer OTHER, MEDICAID, SELFPAY ==
[2020-07-23 10:53] VITALS: BMI 40.9
[2020-07-27] VITALS (11 sets, daily range): BP systolic 141–184; BP diastolic 47–104; PULSE 84–98; RESP 18–30; TEMP 36.1–43; O2SAT 92–96
[2020-07-27 06:40] LABS: HCG Qualitative, Serum Negative (Negative)
[2020-07-27 06:58] LABS: POC Glucose,Bedside 134 (70-110)
--- NOTE | 2020-07-27 08:08 | HMH.ANESCL ---
[facility] Anesthesia Checklist - Patient Identification Patient Identification: Arm Band - Structural Data Admitted From: Home Planned Operative Procedure/s: right ctr, trigger finger release Consent for Planned Operative Procedure(s) Verified: Yes Verified Documents: Surgical Consent, History and Physical - NPO Status Verified Time NPO: 00:00 - Additional verifications Anesthesia Reactions: No Hx Blood Transfusions: No Blood Transfusion Reaction: No - Airway Assessment C-Spine Mobility Assessed: Yes (mp2) TMJ Mobility Assessed: Yes Dentition: Good Dentition - Neurological Assessment Level of Consciousness: Awake, Alert - Anesthesia Plan Anesthesia Risk discussed: Yes Anesthesia Plan: Verified ASA Class: III Anesthesia Type: MAC w/Block (Supraclavicular block- risks/benefits explained. Pt verbalizes understanding) [facility] History Medical History: Reports:: Anxiety, Arrhythmia, Asthma, Depression, Diabetes Mellitus Type 2, Gastroesophageal Reflux Disease(GERD), Hyperlipidemia, Hypertension, Migraine, MRSA (2010), Palpitations Denies:: Cancer, Diabetes Mellitus Type 1, Internal Pacemaker, Seizures *Have you ever received a pneumonia vaccine?: No *Have you received a flu vaccine this season?: Yes Other Medical History: Denies: Blood Transfusion Reaction Anesthesia experience/problems:: nac Other Surgeries: Yes: Cholecystectomy, Other. No: Pacemaker Amputation: No Fractures: No - *Social History Last grade of school completed: High school graduate Smoking Status: Never smoker Alcohol Intake: never Alcohol Intake Frequency:: other Substance Use Type: denies use *Occupational Status:: employed Housing: house Household Members: spouse *Travel in the last 8 weeks: None - Psychiatric History Pschychiatric History:: Reports:: Anxiety, Depression Family Hx:: Diabetes, Heart Attack, Stroke, Hypertension, Hyperlipidemia, Asthma, Thyroid Disorder, Kidney Disease
[2020-07-27 10:58] LABS: POC Glucose,Bedside 152 (70-110)
--- NOTE | 2020-07-27 20:34 | HMH.OPNOTE ---
Date of procedure: 07/27/20 Pre-op Diagnosis:: 1) R carpal tunnel syndrome 2) R thumb, middle, ring trigger digits Post-op Diagnosis:: 1) R carpal tunnel syndrome 2) R thumb, middle, ring trigger digits Procedure performed:: 1) R carpal tunnel release 2) trigger finger release of R thumb, middle, ring fingers Surgeon:: Haritha Gaytan MD Bottle Labeler(s):: Eliza Ojeda TAX COMPLIANCE OFFICER:: Benito Albarado Anesthesia: MAC, regional, local Estimated blood loss (mL): 5 Clinical Note:: 50-year-old female with bilateral hand pain, numbness and tingling. Symptoms have been present for several years, and the right is more severe than the left. She is right-hand dominant. Additionally she has pain and catching over the left middle finger and right middle and ring fingers and thumb. Steroid injection was performed at the A1 azul of the L middle finger, which helped her symptoms, but those on the right persist. EMG-NCS BUE performed 07/05/20 at [facility], that demonstrated median nerve entrapment at the wrist (carpal tunnel syndrome) bilaterally, moderate on R and mild on L. I discussed treatment options with the patient, including both operative and nonoperative treatments, with the respective risks and benefits. Her carpal tunnel symptoms have been present for several years and have not improved with bracing; I do not feel they are likely to improve with continued conservative treatment. The patient would like to have carpal tunnel release performed on this hand, in addition to trigger finger release at the same time. I discussed the risks of surgery with the patient, including but not limited to: bleeding, infection, neurovascular damage, wound dehiscence, persistence of symptoms despite surgery, recurrence of CTS and need for revision surgery in the future, in addition to trigger finger reoccurrence or development in other digits. The patient vocalized understanding and provided informed consent for the procedure. Operative findings:: median nerve compression at R wrist + thickened A1 pulleys at R thumb, middle, ring fingers Operative note:: The patient was identified in preoperative holding and the R wrist + R thumb, middle and ring fingers signed by myself. I reviewed the consent with the patient, answering all questions. She was then seen by anesthesia and the decision made to perform a supraclavicular nerve block for the procedure. The block was administered by anesthesia in pre-op holding without complication. The patient was then taken to the OR and placed supine on the operative table with a hand table attached under the right upper extremity. 2 grams cefazolin was infused and intravenous sedation administered. Non-sterile tourniquet was placed on the upper R arm and the arm prepped and draped in the usual sterile fashion. Timeout was performed, identifying the correct patient, correct procedure, and correct site. The procedure was begun by exsanguinating the patient's R upper extremity with an Esmarch and elevating the tourniquet to 250 mmHg. The planned surgical incisions were drawn in marking pen. The carpal tunnel incision was drawn using anatomic landmarks, specifically at the intersection of Castro's cardinal line and the radial border of the ring finger, extending proximally to the wrist flexion crease. Trigger finger incisions were drawn at the volar base of the thumb, middle and ring fingers, centered over the MCP joint/A1 azul. The procedure was begun with the carpal tunnel release; incision was made over the delineated area using a 15 blade. After the skin was incised, tenotomy scissors were used to bluntly spread the subcutaneous tissue. Tissue was spread until the transverse carpal ligament was identified. The proximal margin of the transverse carpal ligament was palpated by a Blain elevator, which was slipped under the ligament to protect the underlying contents of the carpal tunnel. Using a fresh 15 blade, I lightly teased to the fibers of the transverse carp
== END 2020-07-27 10:45 | disposition home or self-care (01) ==
LOC: OR 06:08
PROVIDERS: PCP Internal Medicine; Visit Provider Orthopaedic Surgery
PROC: (CPT 64721; principal; 2020-07-27 07:30)
DX: G56.01 Carpal tunnel syndrome, right upper limb (principal); M65.311 Trigger thumb, right thumb; M65.331 Trigger finger, right middle finger; M65.341 Trigger finger, right ring finger; E11.9 Type 2 diabetes mellitus without complications
CPT/HCPCS: 64721; 26055 ×3; 82962; 84703; 94640; 96374; J0670; J2405

== ENCOUNTER 2020-10-27 08:00 | Outpatient (RCR) | payer OTHER, MEDICAID, SELFPAY ==
--- NOTE | 2020-08-31 09:11 | HMH.OTOPEV ---
OT Inpatient Evaluation Rehab OT Outpatient Eval Start: 08/31/20 08:48 Freq: Status: Active Protocol: Document 08/31/20 08:49 JHON (Rec: 08/31/20 09:10 NEMESIODMITRIY [id number]) Electronically Signed By Ella Torrez OT 08/31/20 08:49 Outpatient Therapy Subjective History Subjective History 50 year old female referred to skilled OP OT services after s/p R carpal tunnel release and trigger finger release of R thumb, middle and ring finger on 07/27/20. Patient verbalize having pain in R hand for years prior to surgery. Chief Complaint Pain Symptom Type Ache,Throb Symptoms Relieved By Ice Symptoms Aggravated By Physical Activity Prior Functional Limitations Lifting Current Functional Limitations Reaching,Lifting,Desk Work/ Reading Symptom Description Constant but Variable Level of pain today (0-10) 4 Pain scale - at its best (0-10) 4 Pain scale - at its worst (0-10) 9 Wrist/Hand Eval Wrist Range of Motion Right Wrist Extension Active Range of Motion ( 55 degrees) Wrist Flexion Active Range of Motion ( 60 degrees) Finger Range of Motion Right Little Finger Finger Metacarpophalangeal Flexion 90 Active Range of Motion (degrees) Finger Proximal Interphalangeal Flexion 80 Active Range (degrees) Finger Distal Interphalangeal Flexion 40 Active Range of Motion (degrees) Right Ring Finger Finger Metacarpophalangeal Flexion 90 Active Range of Motion (degrees) Finger Proximal Interphalangeal Flexion 80 Active Range (degrees) Finger Distal Interphalangeal Flexion 35 Active Range of Motion (degrees) Right Middle Finger Finger Metacarpophalangeal Flexion 90 Active Range of Motion (degrees) Finger Proximal Interphalangeal Flexion 70 Active Range (degrees) Finger Distal Interphalangeal Flexion 50 Active Range of Motion (degrees) Right Index Finger Finger Metacarpophalangeal Flexion 90 Active Range of Motion (degrees) Finger Proximal Interphalangeal Flexion 70 Active Range (degrees) Finger Distal Interphalangeal Flexion 40 Active Range of Motion (degrees) Thumb Range of Motion Right Thumb Metacarpophalangeal Flexion Active 50 Range of Motion (degrees) Thumb Palmar Abduction (Carpometacarpal 60 Flex) Active Range (degrees) Thumb Interphalangeal Flexion Active 50 Range of Motion (degrees) Lock Master/Pinch Strength Right Lock Master Strength Measurement (lbs) 18 Left Lock Master Strength Measurement (lbs) 45 OT Outpatient Assessm
--- NOTE | 2020-09-29 16:15 | HMH.RHREAS ---
Rehab Reassessment Rehab OP Re-assessment Start: 09/29/20 15:49 Freq: Status: Active Protocol: Document 09/29/20 15:49 NEMESIODMITRIY (Rec: 09/29/20 16:11 LCDMITRIY [id number]) Electronically Signed By Ella Torrez OT 09/29/20 15:49 Rehab Re-assessment Subjective Subjective I can move it a little better but it still hurts at times. Objective Objective Notes Patient has participated in skilled OP OT services for manual therapy, thera exer and modalities to improve R wrist and digits AROM/strength and decrease pain management during fx'l tasks. Assessment Progress Assessment Progressing as Expected Assessment Notes Patient has participated in tasks as noted to R hand: scar massage, manual stretching, retrograde massage, project designer strengthening exercise and HEP of proper stretching. However Patient continues to verbalize pain at worst 7-8/10 after a day of work. 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 AROM R UE wrist flexion: 60 wrist extension: 70 thumb IP flexion: 50 IP ABD: 70 Index AROM PIP flex: 90 DIP flex: 60 Middle AROM PIP flex: 95 DIP flex: 65 Ring AROM PIP flex: 90 DIP flex: 55 Little AROM PIP flex: 90 DIP flex: 60 R project designer strength: 40# Patient goals met Patient had made improvement with AROM of R wrist extension , R project designer strength, AROM PIP/ DIP #2-5 digits, and AROM thumb ABD. Goals Not Met Intermit pain levels 7-8/10 Revised Goals 1. AROM wrist flex: 75 2. AROM wrist extension: 60
== END 2020-10-27 08:05 | disposition home or self-care (01) ==
LOC: OT 08:00
PROVIDERS: PCP Internal Medicine; Visit Provider Orthopaedic Surgery
DX: G56.01 Carpal tunnel syndrome, right upper limb (principal); M65.30 Trigger finger, unspecified finger
CPT/HCPCS: 97014; 97018; 97035; 97110; 97140; 97164; 97165; 97530; G0283

== ENCOUNTER → 2020-11-24 10:40 | Outpatient (CLI) | payer OTHER, SELFPAY ==
[2020-11-24 11:03] LABS: Chloride 99 mmol/L (98-107); Potassium 4.1 mmoL/L (3.5-5.1); Sodium 138 mmol/L (136-145)
[2020-11-24 11:04] LABS: Hemoglobin A1C 7.3 % (4.0-6.0)
[2020-11-24 11:05] LABS: Alanine Aminotransferase 39 U/L (12-78); Alkaline Phosphatase 117 U/L (38-126); Aspartate Amino Transferase 39 U/L (14-36); Bilirubin,Total 0.8 mg/dl (0.2-1.3); Blood Urea Nitrogen 15 mg/dl (7-17); Estimated Glomerular Filt Rate 76 ml/min (>60); GFR (African American) 92 ML/MIN (>60)
[2020-11-24 11:06] LABS: Albumin Level 4.7 g/dl (3.5-5.0); Albumin/Globulin Ratio 1.4 (1.1-1.8); Anion Gap 11.1 mEq/L (5-15); Carbon Dioxide 32 mmol/L (22.0-30.0); Chol/HDL Ratio 3.5 (1-3.5); Cholesterol 205 mg/dl (140-200); Globulin 3.3 g/dL (1.3-3.2); Glucose 142 mg/dl (74-100); HDL Cholesterol 58 mg/dl (40-60); Triglycerides 242 mg/dl (30-150); VLDL Cholesterol 48 mg/dL (0-40)
[2020-11-24 11:17] LABS: Direct LDL Cholesterol 98.76 mg/dL (100-129)
== END ==
PROVIDERS: Visit Provider Internal Medicine
DX: E11.9 Type 2 diabetes mellitus without complications (principal); E78.5 Hyperlipidemia, unspecified; I10 Essential (primary) hypertension; Z79.84 Long term (current) use of oral hypoglycemic drugs
CPT/HCPCS: 80053; 80061; 82043; 83036

== ENCOUNTER → 2021-02-25 16:38 | Outpatient (CLI) | payer OTHER, SELFPAY ==
--- NOTE | 2021-02-25 16:42 | MR_ITS ---
PROCEDURE: MR LUMBAR SPINE WO CON CLINICAL INDICATION: LOW BACK PAIN Severe low back pain. Bilateral leg pain worse on rt than lt. COMPARISON: No exams were available for comparison TECHNIQUE: Standard multiplanar multiecho sequences are performed without contrast. 3-D MIP and myelographic images are also rendered and reviewed FINDINGS: There is normal alignment. The spinal cord ends at the T12 level. T11-T12: Mild disc desiccation. T12-L1: Unremarkable. L1-L2: Unremarkable. L2-L3: Mild facet and ligamentum hypertrophy. L3-L4: Mild facet and ligamentum hypertrophy with mild bilateral lateral recess narrowing slightly greater on the right. L4-5: Mild facet and ligamentum hypertrophy. L5-S1: Mild facet and ligamentum hypertrophy. No disc herniation or bony canal stenosis. IMPRESSION: Mild facet and ligamentum hypertrophy. No extruded herniated disc significant disc bulge or canal stenosis. Dictated by: Miguel Angel Ayers MD 02/26/2021 08:58 Miguel Angel Ayers MD in OV 02/26/2021 08:58
== END ==
PROVIDERS: PCP Internal Medicine; Visit Provider Internal Medicine
DX: M54.5 Low back pain (principal)
CPT/HCPCS: 72148; 76376

== ENCOUNTER → 2021-03-03 14:51 | Outpatient (POV) | payer OTHER, SELFPAY ==
[2021-03-03 15:09] VITALS: BP 140/74; PULSE 74; RESP 18; O2SAT 98; BMI 44.2
--- NOTE | 2021-03-07 08:54 | HMH.PMCON ---
Assessment and Plan (1) Degenerative disc disease, lumbar Status: Acute Category: Medical Code(s): M51.36 - Other intervertebral disc degeneration, lumbar region (2) Ligamentum flavum hypertrophy Status: Acute Category: Medical Code(s): M46.00 - Spinal enthesopathy, site unspecified (3) Spinal stenosis Status: Acute Category: Medical Code(s): M48.00 - Spinal stenosis, site unspecified - Assessment and plan all Dx Assessment and Plan for all problems:: Patient will be set up for an L4-L5 lumbar epidural steroid injection/epidurogram. I will follow-up with her afterwards reassess her symptoms at that time she has been instructed to call the office if she has any issues prior to her next appointment. She is failed 6 weeks of conservative therapy. She is not on any anticoagulation therapy. Dr. Méndez has reviewed this note and agrees with this plan of care. This note was dictated using voice recognition software and may contain errors or omissions HPI - Data of Consult Consult date: 03/03/21 Requesting Physician: Temi Ochoa APRN Primary Care Provider: Maurice Kessler - Consult Narrative Reason for consult: Back pain, leg pain History of present illness: Ms. Ye is a 50 year old female who presents today for consultation in regards to her low back pain. Patient states all activity increases pain while heat, ice, stretching decreases pain. She does have numbness and tingling in bilateral lower extremities. She rates her pain today a 5 out of 10. Patient tried chiropractic therapy with no real true relief. She is also tried anti-inflammatories including naproxen. Patient is here to discuss potential injective therapy. She does have an MRI showing ligamentum hypertrophy, degenerative disc disease lumbar spine. Patient is failed 6 weeks of conservative treatment including anti-inflammatories and physician assistant primary care. Patient's pain does worsen when she is standing and walking. Patient has weakness in her legs at times. In her MRI it does note that she has multiple levels of ligamentum flavum hypertrophy. We discussed an epidurogram as well. She is agreeable CC: Temi Ochoa APRN [facility] History I have reviewed the patient's past medical history: Yes Medical History: Reports:: Anxiety, Arrhythmia, Asthma, Depression, Diabetes Mellitus Type 2, Gastroesophageal Reflux Disease(GERD), Hyperlipidemia, Hypertension, Migraine, MRSA, Palpitations Denies:: Cancer, Diabetes Mellitus Type 1, Internal Pacemaker, Seizures *Have you ever received a pneumonia vaccine?: Yes *Have you received a flu vaccine this season?: Yes Other Medical History: Denies: Blood Transfusion Reaction Laterality Cases: Right: Carpal Tunnel Release, Other Other Surgeries: Yes: No Previous Surgery, Cholecystectomy, Other. No: Pacemaker Amputation: No Fractures: No - *Social History Smoking Status: Never smoker Alcohol Intake: never Alcohol Intake Frequency:: other Substance Use Type: denies use *Occupational Status:: employed Housing: house Household Members: other *Travel in the last 8 weeks: None - Psychiatric History Pschychiatric History:: Reports:: Anxiety, Depression Family Hx:: Unable to obtain Review of Systems - Review of Systems ROS General: no recent weight change, no fever, no sleep disturbances Respiratory: no cough, no shortness of air, no recurring pulmonary infections Cardiovascular/Peripheral Vascular: No chest pain, No palpitations, no edema, no shortness of breath. Gastrointestinal: no new onset incontinence, normal bowel movements reported Genitourinary: no new onset incontinence Musculoskeletal: Back pain, leg pain Psychiatric: normal mood/ affect Neurological: [denies new onset weakness in extremities], [denies new onset balance issues] Meds Home Medications Medication Instructions Recorded Confirmed Type spironolactone 25 2 tab PO QDAY 11/13/17 12/20/20 History mg-hydrochlo
== END ==
PROVIDERS: PCP Internal Medicine; Visit Provider Clinical Nurse Specialist Family Health
DX: M51.36 Other intervertebral disc degeneration, lumbar region (principal); M46.00 Spinal enthesopathy, site unspecified; M48.00 Spinal stenosis, site unspecified
CPT/HCPCS: 99202; G0463

== ENCOUNTER 2021-03-11 14:57 | Day surgery (SDC) | payer OTHER, SELFPAY ==
[2021-03-11 15:05] VITALS: BP 156/74; PULSE 103; RESP 20; O2SAT 98; BMI 44.2
[2021-03-11 15:30] VITALS: BP 132/74; PULSE 85; RESP 18; O2SAT 98
[2021-03-11 15:31] VITALS: BP 133/75; PULSE 85; RESP 18; O2SAT 98
--- NOTE | 2021-03-11 15:31 | HMH.PMPROC ---
- Procedure Date: 03/11/21 Time: 15:31 Anesthesiologist:: Paco Méndez MD Complications:: None Pre-procedure Diagnosis:: Degenerative disc disease of lumbar spine with lumbar radiculopathy symptoms and lumbar spinal stenosis with neurogenic claudication symptoms Post-procedure Diagnosis:: Same Indications for Procedure:: This patient is a pleasant 50-year-old white female who we have been treating for low back pain with lumbar radiculopathy symptoms and lumbar spinal stenosis with neurogenic claudication symptoms. She has increasing pain especially while standing and walking. Most of her pain is in the back and down her legs. She does have significant spinal stenosis on MRI. We will do a lumbar epidural steroid injection with epidurogram to assess levels of stenosis and candidacy for minimally invasive lumbar decompression. Procedure Details:: Informed consent was obtained and the risk and benefits of the procedure was explained to the patient. The patient was taken to the procedure room. The patient was placed prone on the procedure table. The patient was prepped and draped in sterile fashion. C-arm fluoroscopy was used to view the lumbar spine. Skin and subcutaneous tissues were anesthetized using lidocaine. I placed an 18-gauge epidural needle and advanced into the L4-L5 interspace using fluoroscopic guidance and [id number] to air. After confirmation of needle placement in the epidural space with dye I injected 2 mL of lidocaine 1.5% with Depo-Medrol 80 mg. Patient tolerated the procedure well with no complications. Plan and Disposition:: We will follow-up with her in 2 weeks. Will reevaluate symptoms at that time. Patient on epidurogram she has significant stenosis at L3-L4 and L4-L5 bilaterally. I do believe she would benefit from minimally invasive lumbar decompression. We will seek insurance approval for bilateral mill invasive lumbar decompression L3-L4 and L4-L5.
[2021-03-11 15:43] VITALS: BP 158/85; PULSE 92; RESP 20; O2SAT 98
== END 2021-03-11 15:44 | disposition home or self-care (01) ==
LOC: SC.PAINP 14:58
PROVIDERS: PCP Internal Medicine; Visit Provider Anesthesiology
DX: M51.16 Intervertebral disc disorders with radiculopathy, lumbar region (principal); M48.062 Spinal stenosis, lumbar region with neurogenic claudication; K21.9 Gastro-esophageal reflux disease without esophagitis; E78.5 Hyperlipidemia, unspecified; E11.9 Type 2 diabetes mellitus without complications; G47.33 Obstructive sleep apnea (adult) (pediatric); I10 Essential (primary) hypertension; R00.0 Tachycardia, unspecified; J45.909 Unspecified asthma, uncomplicated; Z90.49 Acquired absence of other specified parts of digestive tract; Z88.8 Allergy status to other drugs, medicaments and biological substances; Z79.899 Other long term (current) drug therapy
CPT/HCPCS: 62323; J1040; Q9966

== ENCOUNTER → 2021-04-07 15:30 | Outpatient (POV) | payer OTHER, SELFPAY ==
[2021-04-07 15:59] VITALS: BP 146/79; PULSE 81; RESP 18; O2SAT 98; BMI 44.2
--- NOTE | 2021-04-08 08:03 | HMH.PAINSOAP ---
[facility] Pain Management SOAP Note Subjective:: Patient is a 50-year-old white female who presents today for follow-up. She has been treated for degenerative disc disease lumbar spine with lumbar radiculopathy symptoms, along with spinal stenosis and neurogenic claudication type symptoms. She did undergo a lumbar epidural steroid injection with an epidurogram. She was considered an appropriate candidate for mild procedure, however, was denied by her insurance. Patient reports her pain to be primarily in her low back. She does have some lower extremity pain, however, it is primarily in her low back. She does rate her pain a 6 out of 10. She has pain that occasionally shoots into her legs with what feels like numbness and tingling according to the patient. She has seen a chiropractor in the past which did give her relief, however, most recently the pain is not being relieved with chiropractic therapy. She has tried and failed conservative therapies of physical therapy along with continued home stretching and oral medications. She has also tried a lumbar epidural steroid traction with no relief. The injection did not give her any significant relief at all. We did discuss trying a low-dose of gabapentin to see if this helps with her symptoms. She would like to try this before proceeding with any further treatment. We also discussed possible Vertiflex, as she was denied for mild. Dr. méndez did feel the patient did not have significant spinal stenosis. Review of Systems General: No recent weight changes, no fever, no sleep disturbances Respiratory: No cough, no shortness of air, no recurring pulmonary infections Cardiovascular/peripheral vascular: No chest pain, no palpitations, no edema, no shortness of breath Gastrointestinal: No new onset incontinence, normal bowel movements reported Genitourinary: No new onset incontinence Musculoskeletal: Low back pain with shooting pain into lower extremities intermittently Psychiatric: Normal mood/affect Neurological: [Denies weakness in extremities], [denies balance issues] Objective:: Physical exam General: Alert and oriented x3, no acute distress, pleasant and cooperative, [on room air] Lungs: Respirations even and unlabored, symmetrical chest expansion Eyes: PERRL Musculoskeletal: Flexion and extension of [] lumbar spine somewhat guarded secondary to pain, deep tendon reflexes normal, strength in upper and lower extremities [5/5], [abnormal gait noted] Neurological: Speech clear, marketing executive equal, no gross sensory deficit Assessment:: Degenerative disc disease lumbar spine with lumbar radiculopathy symptoms, spinal stenosis with neurogenic claudication symptoms Plan:: Patient would like to try oral medications before proceeding with any further injective therapy or with any type of procedure. We will order her gabapentin 100 mg 1 tablet p.o. 3 times daily for 2 weeks and see her back in the clinic in 2 weeks for reevaluation. She has been instructed to contact the clinic if she has any concerns for next appointment. Patient has been instructed to contact the clinic with any concerns before the next appointment. Dr. Méndez has reviewed this note and agrees with this plan of care. This note was dictated using voice recognition software and make contain errors or omissions. [facility] History I have reviewed the patient's past medical history: Yes Medical History: Reports:: Anxiety, Arrhythmia, Asthma, Depression, Diabetes Mellitus Type 2, Gastroesophageal Reflux Disease(GERD), Hyperlipidemia, Hypertension, Migraine, MRSA, Palpitations Denies:: Cancer, Diabetes Mellitus Type 1, Internal Pacemaker, Seizures *Have you ever received a pneumonia vaccine?: No *Have you received a flu vaccine this season?: Yes Other Medical History: Denies: Blood Transfusion Reaction Laterality Cases: Right: Carpal Tunnel Release, Other Other Surgeries: Yes: No Previous Surgery, Cholecystectomy, Other. No: Pacemaker Ampu
== END ==
PROVIDERS: PCP Internal Medicine; Visit Provider Clinical Nurse Specialist Family Health
DX: M51.16 Intervertebral disc disorders with radiculopathy, lumbar region (principal); M48.062 Spinal stenosis, lumbar region with neurogenic claudication
CPT/HCPCS: 99212; G0463

== ENCOUNTER → 2021-04-21 15:25 | Outpatient (POV) | payer OTHER, SELFPAY ==
[2021-04-21 15:46] VITALS: BP 150/73; PULSE 110; RESP 18; O2SAT 97; BMI 45.7
--- NOTE | 2021-04-24 14:06 | HMH.PAINSOAP ---
[facility] Pain Management SOAP Note Subjective:: Patient is a 50-year-old white female who presents today for follow-up. She is being treated for degenerative disc disease lumbar spine with lumbar radicular symptoms as well as spinal stenosis with neurogenic claudication type symptoms. Patient was scheduled for a mild procedure, however, but was denied by her insurance. Patient is having acute onset pain today which is in her low back with radiation into bilateral buttock and hips. Patient says standing and walking worsen her pain and radiates into bilateral lower extremities. She says that bending forward does give her relief. She is having numbness and tingling in her lower extremities and does feel as though her legs are giving out. Patient was started on gabapentin at her last visit, however, she is noticing extreme edema in her bilateral lower extremities. As result, the medication was stopped by the patient. She did discuss Vertiflex as well as possible implanted devices for pain relief. Today, her pain is acute and worse than previous. She does rate her pain a 7 out of 10 today. She has tried physical therapy for greater than 6 weeks and continues with home stretching. She also tried anti-inflammatories with no relief. Patient says the pain has now started to radiate into her groin which is something new for her. Review of Systems General: No recent weight changes, no fever, no sleep disturbances Respiratory: No cough, no shortness of air, no recurring pulmonary infections Cardiovascular/peripheral vascular: No chest pain, no palpitations, no edema, no shortness of breath Gastrointestinal: No new onset incontinence, normal bowel movements reported Genitourinary: No new onset incontinence Musculoskeletal: Low back pain with radiation into bilateral buttock, hips, groin and legs Psychiatric: Normal mood/affect Neurological: Weakness lower extremities Objective:: Physical exam General: Alert and oriented x3, no acute distress, pleasant and cooperative, [on room air] Lungs: Respirations even and unlabored, symmetrical chest expansion Eyes: PERRL Musculoskeletal: Flexion and extension of lumbar spine somewhat guarded secondary to pain, deep tendon reflexes normal, strength in upper and lower extremities [5/5], [abnormal gait noted], positive Williams's test, positive distraction test, positive compression test Neurological: Speech clear, export traffic department manager equal, no gross sensory deficit Assessment:: Sacroiliitis, degenerative disc disease lumbar spine with lumbar radiculopathy symptoms, spinal stenosis with neurogenic claudication symptoms Plan:: Patient is having acute changes with her pain at this time. She does have a positive Williams's, compression, distraction test. We will schedule her for bilateral SI joint injections. We will see her back in the clinic afterwards for reevaluation of symptoms. She will continue with home stretching and ice and heat therapies. Patient has been instructed to contact the clinic with any concerns before the next appointment. Dr. Méndez has reviewed this note and agrees with this plan of care. This note was dictated using voice recognition software and make contain errors or omissions. [facility] History I have reviewed the patient's past medical history: Yes Medical History: Reports:: Anxiety, Arrhythmia, Asthma, Depression, Diabetes Mellitus Type 2, Gastroesophageal Reflux Disease(GERD), Hyperlipidemia, Hypertension, Migraine, MRSA, Palpitations Denies:: Cancer, Diabetes Mellitus Type 1, Internal Pacemaker, Seizures *Have you ever received a pneumonia vaccine?: Yes *Have you received a flu vaccine this season?: Yes Other Medical History: Denies: Blood Transfusion Reaction Laterality Cases: Right: Carpal Tunnel Release, Other Other Surgeries: Yes: No Previous Surgery, Cholecystectomy, Other. No: Pacemaker Amputation: No Fractures: No - *Social History Smoking Status: Never smoker Alcohol Intake: nev
== END ==
PROVIDERS: PCP Internal Medicine; Visit Provider Clinical Nurse Specialist Family Health
DX: M46.1 Sacroiliitis, not elsewhere classified (principal); M51.16 Intervertebral disc disorders with radiculopathy, lumbar region; M48.062 Spinal stenosis, lumbar region with neurogenic claudication
CPT/HCPCS: 99212; G0463

== ENCOUNTER 2021-04-29 11:51 | Day surgery (SDC) | payer OTHER, SELFPAY ==
[2021-04-29 12:06] VITALS: BP 133/70; PULSE 93; RESP 18; TEMP 36.6; O2SAT 99; BMI 45.3
[2021-04-29 12:32] VITALS: BP 127/84; PULSE 103; RESP 18; O2SAT 98
[2021-04-29 12:35] VITALS: BP 155/82; PULSE 87; RESP 18; O2SAT 98
[2021-04-29 12:55] VITALS: BP 129/71; PULSE 85; RESP 18; O2SAT 99
--- NOTE | 2021-04-29 13:13 | HMH.PMPROC ---
- Procedure Date: 04/29/21 Time: 13:13 Anesthesiologist:: Marifer Chang MD Complications:: None Pre-procedure Diagnosis:: Bilateral sacroiliitis, chronic low back pain, chronic hip pain Post-procedure Diagnosis:: Same Indications for Procedure:: This patient is a very pleasant 50-year-old white female who presents with chronic low back pain and chronic hip pain bilaterally related to the above diagnosis. She has trialed and failed conservative treatment including oral pain medication and home stretching program for greater than 6 weeks. The plan for today is for the patient to undergo bilateral SI joint injections. Procedure Details:: B/L SI joint injection under fluoroscopy Informed consent was obtained and the risks and benefits of the procedure was explained to the patient. The patient was taken to the procedure room and placed prone on the procedure table. The patient was prepped using ChloraPrep. The skin and subcutaneous tissues overlying the SI joints were anesthetized using 1% lidocaine. I placed a 22-gauge needle first in the left SI joint and second in the right SI joint. Needle placement was confirmed with dye. After this we injected 5 mL bupivacaine 0.25% and Depo-Medrol 40 mg into each SI joint. Patient tolerated the procedure well with no complications. Plan and Disposition:: We will follow-up with this patient in 2 weeks. Will reevaluate pain symptoms at that time.
== END 2021-04-29 12:55 | disposition home or self-care (01) ==
LOC: SC.PAINP 11:51
PROVIDERS: PCP Internal Medicine; Visit Provider Anesthesiology Pain Medicine
DX: M46.1 Sacroiliitis, not elsewhere classified (principal); M54.5 Low back pain; M25.559 Pain in unspecified hip; G89.29 Other chronic pain; G43.909 Migraine, unspecified, not intractable, without status migrainosus; E78.5 Hyperlipidemia, unspecified; I10 Essential (primary) hypertension; J45.909 Unspecified asthma, uncomplicated; K21.9 Gastro-esophageal reflux disease without esophagitis; E11.9 Type 2 diabetes mellitus without complications; F41.9 Anxiety disorder, unspecified; F32.9 Major depressive disorder, single episode, unspecified
CPT/HCPCS: 27096; G0260; J1030; Q9966

== ENCOUNTER → 2021-05-26 12:26 | Outpatient (POV) | payer OTHER, SELFPAY ==
[2021-05-26 12:32] VITALS: BP 141/80; PULSE 78; RESP 18; TEMP 36; O2SAT 100; BMI 44.6
--- NOTE | 2021-05-26 12:37 | HMH.PAINSOAP ---
[facility] Pain Management SOAP Note Subjective:: Patient is a pleasant 51-year-old white female that presents today for follow-up. She has SI joint on April 29, 2021. Patient is rating her pain a 7 out of 10. Patient states that it took approximately 3 days to notice any relief in symptoms after her injection. She did feel relief for approximately 2 to 3 days. Her pain was improved. She did still have a lingering dull sensation of discomfort over her SI joints. She states now the pain has returned, she is tender over her SI joints today. The pain is made worse with prolonged sitting she states she constantly has to change positions. The patient was previously scheduled for minimally invasive lumbar decompression procedure, this was denied by her insurance. She had also been prescribed gabapentin, this was increasing swelling in her feet so she discontinued this medication. She has also been prescribed compounding cream in the past this is not helping her discomfort. The patient has tried and failed conservative therapy such as at home stretches and exercises for greater than 6 weeks, application of ice and heat without any lasting relief in her symptoms. Her [facility] number is [id number] she had an active morphine equivalent of 0. Review of Systems General: No recent weight changes, no fever, no sleep disturbances Respiratory: No cough, no shortness of air, no recurring pulmonary infections Cardiovascular/peripheral vascular: No chest pain, no palpitations, no edema, no shortness of breath Gastrointestinal: No new onset incontinence, normal bowel movements reported Genitourinary: No new onset incontinence Musculoskeletal: [Low back, bilateral SI joint pain] Psychiatric: [Normal mood/affect] Neurological: [Denies weakness in extremities], [denies balance issues] Objective:: Physical exam General: Alert and oriented x3 no acute distress, pleasant and cooperative, [on room air] Lungs: Respirations even and unlabored, symmetrical chest expansion Eyes: PERRL Musculoskeletal: Flexion and extension of the lumbar spine nonguarded, deep tendon reflexes normal, strength in upper and lower extremities 5 out of 5 normal gait noted, positive Williams's, compression and distraction exam bilaterally Neurological: Speech clear, saw handle assembler equal, no gross sensory deficit Assessment:: Degenerative disc disease of the lumbar spine, lumbar radiculopathy, bilateral sacroiliitis, chronic low back pain, chronic hip pain Plan:: I will prescribe Lyrica 75 mg twice daily. We will also schedule the patient for repeat bilateral SI joint injections. She did receive relief from her initial injection, however it was temporary. She is welcome to contact the clinic prior to her next appointment date if she has any questions or concerns. Dr. Méndez has reviewed this note and agrees with this plan of care. This note was dictated using voice recognition software and make contain errors or omissions. [facility] History Medical History: Reports:: Anxiety, Arrhythmia, Asthma, Depression, Diabetes Mellitus Type 2, Gastroesophageal Reflux Disease(GERD), Hyperlipidemia, Hypertension, Migraine, Palpitations Denies:: Cancer, Diabetes Mellitus Type 1, Internal Pacemaker, MRSA, Seizures *Have you ever received a pneumonia vaccine?: No *Have you received a flu vaccine this season?: No Other Medical History: Denies: Blood Transfusion Reaction Laterality Cases: Right: Carpal Tunnel Release, Other Other Surgeries: Yes: No Previous Surgery, Cholecystectomy, Other (endocervical bx/breast bx). No: Pacemaker Amputation: No Fractures: No - *Social History Smoking Status: Never smoker Alcohol Intake: never Alcohol Intake Frequency:: other Substance Use Type: denies use *Occupational Status:: employed Housing: house Household Members: family *Travel in the last 8 weeks: None - Psychiatric History Pschychiatric History:: Reports:: Anxiety, Depression Family Hx:: Diabetes, Hypertension
== END ==
PROVIDERS: PCP Internal Medicine; Visit Provider Family Medicine
DX: M51.16 Intervertebral disc disorders with radiculopathy, lumbar region (principal); M46.1 Sacroiliitis, not elsewhere classified; M25.559 Pain in unspecified hip; G89.29 Other chronic pain
CPT/HCPCS: 99212; G0463

== ENCOUNTER 2021-07-01 12:33 | Day surgery (SDC) | payer OTHER, SELFPAY ==
[2021-07-01 12:45] VITALS: BP 127/67; PULSE 91; RESP 18; TEMP 36.8; O2SAT 99; BMI 45.7
[2021-07-01 13:14] VITALS: BP 129/68; PULSE 90; RESP 18
--- NOTE | 2021-07-01 13:16 | HMH.PMPROC ---
- Procedure Date: 07/01/21 Time: 13:16 Anesthesiologist:: Paco Méndez MD Complications:: None Pre-procedure Diagnosis:: Sacroiliitis Post-procedure Diagnosis:: Same Indications for Procedure:: Patient is a pleasant 51-year-old white female who we are treating for bilateral hip pain. She is tender over both SI joints. She does have a positive Williams's test bilaterally. She has a positive Deanne test bilaterally. She has positive SI joint compression test bilaterally. She has a positive distraction test bilaterally. We will plan on bilateral SI joint injections today to see if this helps with her pain symptoms. Procedure Details:: B/L SI joint injection under fluoroscopy Informed consent was obtained and the risks and benefits of the procedure was explained to the patient. The patient was taken to the procedure room and placed prone on the procedure table. The patient was prepped using ChloraPrep. The skin and subcutaneous tissues overlying the SI joints were anesthetized using lidocaine. I placed a 22-gauge needle first in the left SI joint and second in the right SI joint. Needle placement was confirmed with dye. After this we injected 5 mL bupivacaine 0.25% and Depo-Medrol 40 mg into each SI joint. Patient tolerated the procedure well with no complication. Plan and Disposition:: Follow-up with her in 2 weeks. Will reevaluate symptoms at that time.
[2021-07-01 13:25] VITALS: BP 126/74; PULSE 85; RESP 18; O2SAT 99
== END 2021-07-01 13:26 | disposition home or self-care (01) ==
LOC: SC.PAINP 12:33
PROVIDERS: PCP Internal Medicine; Visit Provider Anesthesiology
DX: M46.1 Sacroiliitis, not elsewhere classified (principal); G43.909 Migraine, unspecified, not intractable, without status migrainosus; E78.5 Hyperlipidemia, unspecified; R00.2 Palpitations; I10 Essential (primary) hypertension; J45.909 Unspecified asthma, uncomplicated; K21.9 Gastro-esophageal reflux disease without esophagitis; E11.9 Type 2 diabetes mellitus without complications; F41.9 Anxiety disorder, unspecified; F32.9 Major depressive disorder, single episode, unspecified; I48.91 Unspecified atrial fibrillation; Z88.8 Allergy status to other drugs, medicaments and biological substances
CPT/HCPCS: 27096; G0260; J1030; Q9966

== ENCOUNTER → 2021-07-19 08:40 | Outpatient (POV) | payer OTHER, SELFPAY ==
[2021-07-19 08:51] VITALS: BP 156/79; PULSE 106; RESP 18; O2SAT 97; BMI 49.6
--- NOTE | 2021-07-19 08:57 | HMH.PAINSOAP ---
[facility] Pain Management SOAP Note Subjective:: Patient is a 51-year-old white female who presents today for follow-up. Patient recently underwent bilateral SI joint injections. The patient reports she did not get any relief. She is having pain in her low back and bilateral hips. She rates her pain a 7 out of 10. Patient did undergo 1 SI injection prior to her last injection for which she says she got about 40 to 50% relief. She has also had a lumbar epidural steroid injection for which she says she got no relief. She is having some tingling sensation in her bilateral feet. She has tried gabapentin which caused swelling, and Lyrica which provided no relief. She is unable to take amitriptyline or Cymbalta due to other medications that she is currently taking. Patient says with the initial SI injection, she did get a day and a half of relief. She is limited with procedures that she can undergo due to caring for her mother. She is not getting any significant relief with her injective therapy. Patient does report to get relief with leaning forward. Per the patient's MRI, she does have ligamentum flavum hypertrophy. She is not exhibiting neurogenic claudication symptoms, however. Review of Systems General: No recent weight changes, no fever, no sleep disturbances Respiratory: No cough, no shortness of air, no recurring pulmonary infections Cardiovascular/peripheral vascular: No chest pain, no palpitations, no edema, no shortness of breath Gastrointestinal: No new onset incontinence, normal bowel movements reported Genitourinary: No new onset incontinence Musculoskeletal: Low back pain with bilateral hip pain Psychiatric: [Normal mood/affect] Neurological: [Denies weakness in extremities], [denies balance issues] Objective:: Physical exam General: Alert and oriented x3, no acute distress, pleasant and cooperative, [on room air] Lungs: Respirations even and unlabored, symmetrical chest expansion Eyes: PERRL Musculoskeletal: Flexion and extension of lumbar [spine] somewhat guarded secondary to pain, strength in upper and lower extremities [5/5], [antalgic gait noted] Neurological: Speech clear, [desk sergeant equal], no gross sensory deficit Assessment:: Degenerative disc disease lumbar spine with lumbar radiculopathy symptoms Plan:: Patient I did discuss her options. She has not gotten any significant relief with injective therapy. We did discuss trying tramadol 50 mg 1 tablet p.o. 3 times daily to see if this gives her relief. She is in agreement. We will order the medication. We will plan to follow-up with patient in 2 weeks. If she has any questions or concerns before that visit she can contact the clinic. Risks and benefits of the medication have been explained in detail to the patient. The patient has been advised to consult with his/her primary care provider and pharmacist regarding drug-drug interaction of medications currently prescribed. Patient has been prescribed a controlled substance after being counseled on the medication, medication safety, and possible side effects. JAYSHREE report has been obtained and reviewed prior to prescription and found to be appropriate. Opioid contract was reviewed and signed by the patient, and that they have agreed to all of the terms set forth by our compliance program. Patient has been instructed to contact the clinic with any concerns before the next appointment. Dr. Méndez has reviewed this note and agrees with this plan of care. This note was dictated using voice recognition software and make contain errors or omissions. [facility] History I have reviewed the patient's past medical history: Yes Medical History: Reports:: Anxiety, Arrhythmia, Asthma, Atrial Fibrillation, Depression, Diabetes Mellitus Type 2, Gastroesophageal Reflux Disease(GERD), Hyperlipidemia, Hypertension, Migraine, Palpitations Denies:: Cancer, Diabetes Mellitus Type 1, Internal Pacemaker, MRSA, Seizures *Have you ever rece
== END ==
PROVIDERS: PCP Internal Medicine; Visit Provider Clinical Nurse Specialist Family Health
DX: M51.16 Intervertebral disc disorders with radiculopathy, lumbar region (principal)
CPT/HCPCS: 99212; G0463

== ENCOUNTER → 2021-08-02 08:24 | Outpatient (POV) | payer OTHER, SELFPAY ==
[2021-08-02 08:31] VITALS: BP 156/87; PULSE 91; RESP 18; O2SAT 96; BMI 46.3
--- NOTE | 2021-08-02 08:50 | HMH.PAINSOAP ---
[facility] Pain Management SOAP Note Subjective:: Patient is a 51-year-old female who presents today for follow-up. The patient has had 2 SI joint injections, lumbar epidural steroid injection, and has tried tramadol and anti-inflammatories. The patient has tried gabapentin which caused swelling, and Lyrica which caused her to have side effects as well. She is unable to take amitriptyline or Cymbalta due to medications that she is currently taking. She is having low back pain that is radiating into her bilateral hips and legs. She says that the pain generally stops at the knee. She is not having any heaviness or weakness in her lower extremities. She has pain with movement as well as with sitting. The patient has stiffness in her neck and shoulders. She does see a chiropractor for which she is seeing for more than 30 years. She goes every 4 weeks to her chiropractor. Patient unfortunately was unable to tolerate tramadol due to drowsiness. She does rate her pain a 7 out of 10 today. She continues with home stretching. She has tried physical therapy for greater than 6 weeks with no significant relief. She has tried all modalities of therapy that are conventional within our clinic with no significant relief. The patient continues to work despite pain. Review of Systems General: No recent weight changes, no fever, no sleep disturbances Respiratory: No cough, no shortness of air, no recurring pulmonary infections Cardiovascular/peripheral vascular: No chest pain, no palpitations, no edema, no shortness of breath Gastrointestinal: No new onset incontinence, normal bowel movements reported Genitourinary: No new onset incontinence Musculoskeletal: Neck tightness, low back pain with radiation into bilateral hips and legs Psychiatric: [Normal mood/affect] Neurological: [Denies weakness in extremities], [denies balance issues] Objective:: Physical exam General: Alert and oriented x3, no acute distress, pleasant and cooperative Lungs: Respirations even and unlabored, symmetrical chest expansion Eyes: PERRL Musculoskeletal: Flexion and extension of lumbar [spine] somewhat guarded secondary to pain, [antalgic gait noted] Neurological: Speech clear, no gross sensory deficit Assessment:: Degenerative disc disease lumbar spine with lumbar radiculopathy symptoms Plan:: Patient is a 51-year-old white female who is following up after starting tramadol. The medication is causing severe drowsiness. She has failed conservative therapies of anti-inflammatories, oral medications?tramadol, Lyrica, gabapentin. She has tried a lumbar epidural steroid injection and 2 SI injections. Patient continues to see a chiropractor. She continues with home stretching. She has tried physical therapy for more than 6 weeks. She has not gotten any relief. She continues to have pain in her low back, bilateral hips and legs. We discussed sending the patient to neurosurgery, but she has deferred at this time. Patient is interested in possible psychological evaluation for spinal cord stimulation. We will send her for psychological evaluation. We will see her back afterwards to to discuss a further plan of care. We will order the patient Tylenol with codeine No. 3 to see if this relieves her pain. We will order this for the patient 1 tablet p.o. twice daily as needed pain. She has not been able to tolerate any other medications at this point. Risks and benefits of the medication have been explained in detail to the patient. The patient does understand the risks dependence on the medication when given over a prolonged period. Patient has been advised of risks of oversedation with the prescribed medication. Narcan has been offered to the paitent in the event of oversedation. Patient has been advised that a family member should also be educated regarding administration of Narcan. The patient has been advised to consult with his/her primary care prov
== END ==
PROVIDERS: Visit Provider Clinical Nurse Specialist Family Health
DX: M51.16 Intervertebral disc disorders with radiculopathy, lumbar region (principal)
CPT/HCPCS: 99212; G0463

== ENCOUNTER 2021-08-27 14:46 | Emergency (ER) | payer OTHER, SELFPAY ==
--- NOTE | 2021-08-27 15:41 | XR_ITS ---
PROCEDURE INFORMATION: Exam: XR Right Wrist Exam date and time: 08/27/2021 3:41 PM Age: 51 years old Clinical indication: Pain; Hand and wrist; Right; Additional info: Pain no fall no injury TECHNIQUE: Imaging protocol: XR Right wrist. Views: 3 or more views. COMPARISON: CR XR WRIST RT MIN 3V 06/17/2020 11:05 AM FINDINGS: Bones/joints: There is no evidence of acute fracture.There is no evidence of malalignment or dislocation. Soft tissues: Normal. IMPRESSION: There is no evidence of acute fracture.There is no evidence of malalignment or dislocation.
--- NOTE | 2021-08-27 15:41 | XR_ITS ---
PROCEDURE INFORMATION: Exam: XR Right Hand Exam date and time: 08/27/2021 3:41 PM Age: 51 years old Clinical indication: Pain; Hand and wrist; Right; Prior surgery; Surgery date: 6+ months; Surgery type: Carpal tunnel; Additional info: Pain no injury no fall TECHNIQUE: Imaging protocol: XR Right hand. Views: 1 or 2 views. COMPARISON: CR XR WRIST RT MIN 3V 06/17/2020 11:05 AM FINDINGS: Bones/joints: There is no evidence of acute fracture.There is no evidence of malalignment or dislocation. Degenerative changes in the radiocarpal joint Soft tissues: Normal. IMPRESSION: There is no evidence of acute fracture.There is no evidence of malalignment or dislocation.
[2021-08-27 15:48] VITALS: BP 123/72; PULSE 106; RESP 16; TEMP 37; O2SAT 99; BMI 45.3
--- NOTE | 2021-08-27 15:49 | HMH.EDUTC ---
[facility] Disposition Clinical Impression: Right hand pain, Swelling of right hand, Right hand tendonitis Disposition: Home, Self-Care Condition on Discharge: Good Instructions: DI for Hand Pain Additional Instructions: Rest the extremity, Elevate the extremity as tolerated while you are resting. Take naproxen as directed. Take it twice per day regularly for the next 3 to 4 days to see if it will reduce the inflammation in your hand. Follow up with Dr. Dietz (orthopedics). I put in a referral but you need to call his office and schedule an appointment. Follow up with your regular doctor. GO TO THE ER FOR ANY WORSENING SYMPTOMS The arm sling is just for comfort to keep you hand from hanging down so much. If it does not help then you don't have to wear it. The wrist and hand splint is to try to rest your wrist and thumb and allow the tendons to heal. Try to wear it regularly for the next several days to see if it will help with your symptoms. Make sure it doesn't get too tight. Take it off or loosen it if you have any doubts about it being tight. Prescriptions: Naproxen [Naproxen 500mg tab] 500 mg PO BIDP PRN #30 tab PRN Reason: Moderate Pain Transmission Status: Pending to [facility] Referrals: Maurice Kessler [Primary Care Provider] - Anup Dietz MD [Staff Physician] - Time of Disposition: 16:41 Medical Decision Making - Medical Records Medical records reviewed: No: I reviewed the patient's medical records. - Alex Inquiry Pt receiving controlled substance: No Vital Signs: 08/27/21 15:48 Temperature 98.6 F Temperature Source Oral Pulse Rate [Left] 106 H Respiratory Rate 16 Blood Pressure [Right Arm] 123/72 Blood Pressure Mean [Right Arm] 89 02 Sat by Pulse Oximetry 99 Orders (Tests/Meds): ORDERS Category Date Time Status Wrist XR right minimum 3 views [XR wrist RT min 3V] Exams 08/27/21 15:41 Taken Stat XR hand RT 2V Stat Exams 08/27/21 15:41 Taken [facility] HPI - General Stated complaint: right hand swollen,painful, no accident Time Seen by Provider: 08/27/21 15:49 - History of Present Illness Provider Complaint: She c/o right hand pain and swelling for the past 2 to 3 days. Her swelling and pain got worse through last night and this morning, so she came in to be checked. She denies any injury. She has a history of having carpal tunnel surgery and surgery for trigger finger in that hand, but that was over 1 year ago and she has not had trouble since. Her pain and tenderness if the worst around the base of her right thumb. It hurts her to try to muck operator something that involves using the thumb. - Related Data Home Medications Medication Instructions Recorded Confirmed spironolactone 25 2 tab PO QDAY 11/13/17 07/01/21 mg-hydrochlorothiazide 25 mg tablet dulaglutide 0.75 mg/0.5 mL 3 mg SQ QWEEK 08/01/19 07/01/21 subcutaneous pen injector loratadine 10 mg tablet 10 mg PO DAILY 30 Days #30 tab 08/15/19 07/01/21 pravastatin 80 mg tablet 80 mg PO DAILY 30 Days #30 tab 08/15/19 07/01/21 sertraline 100 mg tablet 150 mg PO QDAY tab 08/15/19 07/01/21 pioglitazone 15 mg tablet 15 mg PO DAILY tab 09/22/20 07/01/21 naproxen 500 mg tablet 500 mg PO BID PRN tab 09/24/20 07/01/21 Losartan Potassium [Cozaar 25mg 25 mg PO DAILY 03/11/21 07/01/21 Tablets] Metformin HCl [Metformin 1000mg 1,000 mg PO BID 03/11/21 07/01/21 Tablets] Omeprazole 40 mg PO DAILY 03/11/21 07/01/21 Potassium Chloride [Klor-con 20 20 meq PO DAILY 03/11/21 07/01/21 mEq tablet] Metoprolol Succinate [Metoprolol See Rx Instructions .ROUTE .COMPLEX 07/01/21 07/01/21 Succinate 25mg Tablet*] Pregabalin [Lyrica 75mg Cap] 75 mg PO BID 07/01/21 07/01/21 Previous Rx's Medication Instructions Recorded Tramadol HCl [Tramadol 50mg 50 mg PO TID #90 tab 07/19/21 Tab] Acetaminophen with Codeine 1 each PO BID #60 tab 08/05/21 [Tylenol with Codeine #3 tablet]
[2021-08-27 17:00] VITALS: BP 123/72; PULSE 106; RESP 18; TEMP 37
== END 2021-08-27 17:01 | disposition home or self-care (01) ==
PROVIDERS: Emergency Provider Nurse Practitioner Family; PCP Internal Medicine
DX: M70.841 Other soft tissue disorders related to use, overuse and pressure, right hand (principal); F41.8 Other specified anxiety disorders; I48.0 Paroxysmal atrial fibrillation; E11.9 Type 2 diabetes mellitus without complications; K21.9 Gastro-esophageal reflux disease without esophagitis; E78.5 Hyperlipidemia, unspecified; I10 Essential (primary) hypertension; Z79.899 Other long term (current) drug therapy
CPT/HCPCS: 29125; 73110; 73120; 99202; G0463

== ENCOUNTER → 2021-09-23 10:21 | Outpatient (CLI) | payer OTHER, SELFPAY ==
[2021-09-23 12:27] LABS: Chloride 99 mmol/L (98-107); Potassium 4.3 mmoL/L (3.5-5.1); Sodium 139 mmol/L (136-145)
[2021-09-23 12:30] LABS: Anion Gap 13.3 mEq/L (5-15); Blood Urea Nitrogen 13 mg/dl (7-17); Carbon Dioxide 31 mmol/L (22.0-30.0); Estimated Glomerular Filt Rate 76 ml/min (>60); GFR (African American) 92 ML/MIN (>60)
[2021-09-23 12:31] LABS: Calcium 9.6 mg/dl (8.4-10.2); Glucose 148 mg/dl (74-100)
== END ==
PROVIDERS: Visit Provider Internal Medicine Cardiovascular Disease
DX: R00.2 Palpitations (principal); E87.6 Hypokalemia
CPT/HCPCS: 36415; 80048

== ENCOUNTER → 2021-11-23 09:31 | Outpatient (CLI) | payer OTHER, SELFPAY ==
[2021-11-23 10:39] LABS: Chloride 97 mmol/L (98-107)
[2021-11-23 10:40] LABS: Potassium 4.3 mmoL/L (3.5-5.1); Sodium 135 mmol/L (136-145)
[2021-11-23 10:42] LABS: Alanine Aminotransferase 47 U/L (12-78); Albumin Level 4.8 g/dl (3.5-5.0); Albumin/Globulin Ratio 1.6 (1.1-1.8); Alkaline Phosphatase 149 U/L (38-126); Anion Gap 12.3 mEq/L (5-15); Aspartate Amino Transferase 56 U/L (14-36); Blood Urea Nitrogen 13 mg/dl (7-17); Carbon Dioxide 30 mmol/L (22.0-30.0); Estimated Glomerular Filt Rate 88 ml/min (>60); GFR (African American) 107 ML/MIN (>60); Total Protein,Serum 7.8 g/dl (6.3-8.2)
[2021-11-23 10:43] LABS: Calcium 9.8 mg/dl (8.4-10.2); Chol/HDL Ratio 3.1 (1-3.5); Cholesterol 161 mg/dl (140-200); Glucose 213 mg/dl (74-100); HDL Cholesterol 52 mg/dl (40-60); Triglycerides 269 mg/dl (30-150); VLDL Cholesterol 54 mg/dL (0-40)
[2021-11-23 10:54] LABS: Direct LDL Cholesterol 76.37 mg/dL (100-129)
[2021-11-23 11:03] LABS: Hemoglobin A1C 8.8 % (4.0-6.0)
== END ==
PROVIDERS: PCP Internal Medicine; Visit Provider Internal Medicine
DX: Z79.84 Long term (current) use of oral hypoglycemic drugs (principal)
CPT/HCPCS: 36415; 80053; 80061; 82043; 83036

== ENCOUNTER → 2021-12-06 09:11 | Outpatient (CLI) | payer OTHER, SELFPAY ==
[2021-12-06 10:25] LABS: Chloride 96 mmol/L (98-107)
[2021-12-06 10:26] LABS: Potassium 4.2 mmoL/L (3.5-5.1); Sodium 135 mmol/L (136-145)
[2021-12-06 10:29] LABS: Anion Gap 12.2 mEq/L (5-15); Blood Urea Nitrogen 11 mg/dl (7-17); Carbon Dioxide 31 mmol/L (22.0-30.0); Estimated Glomerular Filt Rate 66 ml/min (>60); GFR (African American) 80 ML/MIN (>60); Glucose 201 mg/dl (74-100)
== END ==
PROVIDERS: PCP Internal Medicine; Visit Provider Internal Medicine Cardiovascular Disease
DX: R06.00 Dyspnea, unspecified (principal); R00.2 Palpitations; I25.10 Atherosclerotic heart disease of native coronary artery without angina pectoris; E11.9 Type 2 diabetes mellitus without complications; E78.5 Hyperlipidemia, unspecified; R60.0 Localized edema; R94.31 Abnormal electrocardiogram [ECG] [EKG]; Z79.84 Long term (current) use of oral hypoglycemic drugs
CPT/HCPCS: 36415; 80048

== ENCOUNTER → 2022-01-19 08:40 | Outpatient (POV) | payer OTHER, SELFPAY ==
[2022-01-19 08:50] VITALS: BP 152/78; PULSE 87; RESP 18; TEMP 36.1; O2SAT 97; BMI 43.3
--- NOTE | 2022-01-19 09:00 | HMH.PAINSOAP ---
[facility] Pain Management SOAP Note Subjective:: Patient is a pleasant 51-year-old female who presents today for follow-up. We have been treating this patient for bilateral sacroiliitis, degenerative disc disease of lumbar spine with lumbar radiculopathy symptoms. Patient continues to have low back pain that radiates to bilateral extremities, mainly to the right side. Denies any loss of bowel and bladder functions. Denies any recent falls or traumas. Patient has trouble with any lumbar flexion, extension, and rotation. For her pain management, we have tried several injections, oral medications, and at home exercises for greater than 6 weeks with no relief of symptoms. She has had two SI injections, lumbar epidural steroid injections with minimal relief. Patient has tried tramadol and other anti-inflammatories with no relief of symptoms. She also goes to a chiropractor regularly but this only alleviates her symptoms temporarily. We have talked to the patient extensively about the benefits of neurosurgery but she does not want any permanent back surgeries even if she is deemed a surgical candidate. We have discussed with her previously that she is a good candidate for a spinal cord stimulator. We have referred this patient for a psychiatric evaluation and has been deemed appropriate and competent to get the stimulator. She has been denied by her insurance twice for the stimulator. Currently, she is taking tylenol and alleve but she continues to be at 7/10 pain. She is not on any scheduled medications. Review of Systems: General: No recent weight changes, no fever, no sleep disturbances Respiratory: No cough, no shortness of air, no recurring pulmonary infections Cardiovascular/peripheral vascular: No chest pain, no palpitations, no edema, no shortness of breath Gastrointestinal: No new onset incontinence, normal bowel movements reported Genitourinary: No new onset incontinence Musculoskeletal: Low back pain Psychiatric: [Normal mood/affect] Neurological: [Denies weakness in extremities], [denies balance issues] Objective:: Physical Exam: General: Alert and oriented x3, no acute distress, pleasant and cooperative, [on room air] Lungs: Respirations even and unlabored, symmetrical chest expansion Eyes: PERRL Musculoskeletal: Flexion and extension of lumbar [spine] somewhat guarded secondary to pain, [antalgic gait noted] Neurological: Speech clear, no gross sensory deficit Assessment:: Degenerative disc disease of lumbar spine with lumbar radiculopathy symptoms Sacroiliitis Chronic hip pain Plan:: Patient continues to have low back pain that radiates to bilateral lower extremities. We have tried and failed conservative therapy such as oral medications, physical therapy, injective therapy, and at home exercises for greater than 6 weeks. I do think this patient will get significant relief from a spinal cord stimulator. I have talked to the patient again about getting referred to neurosurgery for second opinion but she is very adamant that she does not want to go that route. I will refer her again to physical therapy for evaluation and treatment. I will order an updating MRI lumbar to see if there is any new pathologies since she said that she has been having worsening low back pain. Follow up after imaging. Patient has been instructed to contact the clinic with any concerns before the next appointment. Dr. Méndez has reviewed this note and agrees with this plan of care. This note was dictated using voice recognition software and make contain errors or omissions. [facility] History Medical History: Reports:: Anxiety, Arrhythmia, Asthma, Atrial Fibrillation, Depression, Diabetes Mellitus Type 2, Gastroesophageal Reflux Disease(GERD), Hyperlipidemia, Hypertension, Migraine, Palpitations Denies:: Cancer, Diabetes Mellitus Type 1, Internal Pacemaker, MRSA, Seizures *Have you ever received a pneumonia vaccine?: No *Have you received a flu vaccine this sea
== END ==
PROVIDERS: Visit Provider Student in an Organized Health Care Education/Training Program
DX: M51.16 Intervertebral disc disorders with radiculopathy, lumbar region (principal); M46.1 Sacroiliitis, not elsewhere classified; M25.559 Pain in unspecified hip; G89.29 Other chronic pain
CPT/HCPCS: 99212; G0463

== ENCOUNTER → 2022-01-31 15:45 | Outpatient (CLI) | payer OTHER, SELFPAY ==
--- NOTE | 2022-01-31 15:48 | MR_ITS ---
PROCEDURE INFORMATION: Exam: MR Lumbar Spine Without Contrast. Exam date and time: 01/31/2022 3:57 PM Age: 51 years old Clinical indication: Low back pain; Additional info: Lower back pain with pain going down legs x 1 year TECHNIQUE: Imaging protocol: Multiplanar magnetic resonance images of the lumbar spine without contrast. COMPARISON: MR LUMBAR SPINE WO CON 02/25/2021 4:52 PM FINDINGS: Vertebrae: No anterior wedging deformity. No acute fracture visualized. No pars interarticularis defect is seen. Lower lumbar facet arthropathy is noted. Spinal cord: The distal spinal cord and conus medullaris are normal in signal and morphology. The cauda equina nerve roots are normally distributed within the thecal sac, with no clumping or adhesions. Discs/Spinal canal/Neural foramina: At the T11-12 and T12-L1 levels, which are visualized in the sagittal plane only, there are mild disc bulges which causes no significant central canal stenosis. There is moderate bilateral neural foraminal stenosis at the L3-L4 level due to mild disc bulge in combination with facet hypertrophy. Neural foraminal stenosis is mild to moderate on the left at L4-L5. Soft tissues: Unremarkable. IMPRESSION: 1. Neural foraminal stenosis bilaterally at L3-L4, on the left at L4-L5, as above. 2. No significant central canal stenosis.
== END ==
PROVIDERS: PCP Internal Medicine; Visit Provider Student in an Organized Health Care Education/Training Program
DX: M54.50 Low back pain, unspecified (principal)
CPT/HCPCS: 72148; 76376

== ENCOUNTER 2022-02-05 10:21 | Emergency (ER) | payer OTHER, SELFPAY ==
[2022-02-05 10:40] VITALS: BP 140/78; PULSE 94; RESP 18; TEMP 36.9; O2SAT 97; BMI 43.7
--- NOTE | 2022-02-05 10:52 | HMH.EDUTC ---
[facility] [place] Disposition Clinical Impression: Strep sore throat Acute bronchitis Qualifiers: Bronchitis organism: other organism Qualified Code(s): J20.8 - Acute bronchitis due to other specified organisms Disposition: Home, Self-Care Condition on Discharge: Good Instructions: DI for Acute Bronchitis Additional Instructions: Start antibiotic today. Be sure to complete entire prescription even if feeling better Tylenol and ibuprofen as needed for pain or fever Humidifier/vaporizer/hot steamy shower Follow-up with primary care tomorrow. Follow-up immediately in the ER of the [facility] [[email or web address]] for new or worsening symptoms or no noticeable improvement over the next 48-72 hours. Stop smoking Inhaler every 4-6 hours as needed. Should help open airways improved cough, wheezing, shortness of breath Jose Santana will not cause drowsiness to use at bedtime to help stop cough so that she can get some sleep Start steroids today. Helps with inflammation therefore coughing and wheezing. Follow directions on package. Prescriptions: Benzonatate [Benzonatate 100mg cap] 100 mg PO BID PRN 6 Days #12 cap PRN Reason: Cough Prescription Printed predniSONE [Prednisone 20mg Tab] 20 mg PO BID #10 tab Prescription Printed Azithromycin [Zithromax 250mg tab] 250 mg PO DIRECTED #6 tab Prescription Printed Referrals: Maurice Kessler [Primary Care Provider] - Time of Disposition: 11:45 Medical Decision Making - Alex Inquiry Pt receiving controlled substance: No Vital Signs: 02/05/22 10:40 02/05/22 11:37 Temperature 98.4 F 98.4 F Temperature Source Oral Pulse Rate 94 H Pulse Rate [Right Brachial] 94 H Respiratory Rate 18 18 Blood Pressure 140/78 Blood Pressure [Right Arm] 140/78 Blood Pressure Mean [Right Arm] 98 Blood Pressure Source [Right Arm] Automatic Cuff Blood Pressure Position [Right Arm] Sitting 02 Sat by Pulse Oximetry 97 Oxygen Delivery Method Room Air - Lab Data Lab Results 02/05/22 10:52: Influenza Type A Ag Negative, Influenza Type B Ag Negative 02/05/22 10:56: Group A Strep Rapid Negative Orders (Tests/Meds): ORDERS Category Date Time Status Strep Screen Confirmation Stat Micro 02/05/22 10:56 Received [facility] [place] HPI - General Chief complaint: Urgent Treatment Center Stated complaint: cough, runny nose, sore throat, h/a, congestion Time Seen by Provider: 02/05/22 10:52 Mode of Arrival: Ambulatory Source of Information: Patient Limitations: No Limitations - History of Present Illness Provider Complaint: 51 yr old flora presents for sore throat, nasal congestion,coughing up yellow sputum, and body aches since - Related Data Home Medications Medication Instructions Recorded Confirmed spironolactone 25 2 tab PO QDAY 11/13/17 01/19/22 mg-hydrochlorothiazide 25 mg tablet dulaglutide 0.75 mg/0.5 mL 3 mg SQ QWEEK 08/01/19 01/19/22 subcutaneous pen injector loratadine 10 mg tablet 10 mg PO DAILY 30 Days #30 tab 08/15/19 01/19/22 sertraline 100 mg tablet 150 mg PO QDAY tab 08/15/19 01/19/22 naproxen 500 mg tablet 500 mg PO BID PRN tab 09/24/20 01/19/22 acetaminophen 300 mg-codeine 30 mg 1 tab PO BID PRN tab 09/21/21 01/19/22 tablet atorvastatin 80 mg tablet 80 mg PO HS 09/21/21 01/19/22 metformin 1,000 mg tablet 500 mg PO BID tab 09/21/21 01/19/22 tramadol 50 mg tablet 50 mg PO TID PRN tab 09/21/21 01/19/22 Aspirin [Low Dose Aspirin EC] 81 mg PO DAILY 01/19/22 01/19/22 Fluconazole 200 mg PO DAILY 01/19/22 01/19/22 Losartan Potassium [Cozaar 25mg See Rx Instructions .ROUTE .COMPLEX 01/19/22 01/19/22 Tablets] Metoprolol Succinate [Metoprolol 50 mg PO DAILY 01/19/22 01/19/22 Succinate 50mg Tablet*] Omeprazole See Rx Instructions .ROUTE .COMPLEX 01/19/22 01/19/22 Potassium Chloride [Klor-con 20 See Rx Instructions .ROUTE .COMPLEX 01/19/22 01/19/22 mEq tablet] Previous Rx's Medication Instructions Recorded Azithromycin [Zithromax 250mg 250 m
[2022-02-05 11:14] LABS: UTC Influenza A Antigen Negative (Negative)
[2022-02-05 11:15] LABS: UTC Influenza B Antigen Negative (Negative)
[2022-02-05 11:36] LABS: Strep Scrn Group A (Rapid) Negative (Negative)
[2022-02-05 11:37] VITALS: BP 140/78; PULSE 94; RESP 18; TEMP 36.9; O2SAT 97
[2022-02-05 11:46] VITALS: BP 133/89; PULSE 76; RESP 19; TEMP 37.1; O2SAT 98
== END 2022-02-05 11:46 | disposition home or self-care (01) ==
PROVIDERS: Emergency Provider Nurse Practitioner Family; PCP Internal Medicine
DX: J02.8 Acute pharyngitis due to other specified organisms (principal); R00.2 Palpitations; R94.31 Abnormal electrocardiogram [ECG] [EKG]; R06.00 Dyspnea, unspecified; R00.0 Tachycardia, unspecified; I48.91 Unspecified atrial fibrillation; K21.9 Gastro-esophageal reflux disease without esophagitis; E78.5 Hyperlipidemia, unspecified; E11.9 Type 2 diabetes mellitus without complications; J45.909 Unspecified asthma, uncomplicated; G43.909 Migraine, unspecified, not intractable, without status migrainosus; F32.A Depression, unspecified; F41.9 Anxiety disorder, unspecified; Z79.1 Long term (current) use of non-steroidal anti-inflammatories (NSAID); Z79.52 Long term (current) use of systemic steroids; Z79.82 Long term (current) use of aspirin; Z79.84 Long term (current) use of oral hypoglycemic drugs; Z79.899 Other long term (current) drug therapy; Z88.8 Allergy status to other drugs, medicaments and biological substances; Z82.49 Family history of ischemic heart disease and other diseases of the circulatory system; Z83.3 Family history of diabetes mellitus
CPT/HCPCS: 87430; 87804; 99213; G0463

== ENCOUNTER → 2022-02-13 09:56 | Outpatient (POV) | payer OTHER, SELFPAY ==
[2022-02-13 10:34] VITALS: BP 155/81; PULSE 89; RESP 18; TEMP 36.2; O2SAT 97; BMI 42.6
--- NOTE | 2022-02-13 10:54 | P.CONS_ITS ---
[facility] Pain Management SOAP Note Subjective:: Patient is a pleasant 51-year-old white female that we have been seeing for quite some time for chronic low back pain that she describes as constant, dull, aching. She rates the pain 6/10. Patient states pain increases in the lumbar spine as well as bilateral hips when standing for any length of time. She reports sitting for any length of time increases pain in the low back area. Flexion and/or extension increases pain. Patient has had bilateral SI joint injections x2. She has also had lumbar epidural steroid injection at the L4-5 level. Patient states neither 1 of these injections gave her much relief. I reviewed her recent MRI of the lumbar spine that was done on 01/31/2022. Patient has multilevel facet arthropathy. We discussed medial branch blocks for this pain. She wishes to proceed. Objective:: Patient is awake alert oriented x3. No acute distress. Flexion and extension of the lumbar spine is somewhat guarded secondary to pain. Deep tendon reflexes upper and lower extremities normal. Motor strength upper and lower extremities normal. There is no gross sensory deficit. Gait is normal. Assessment:: Degenerative disc disease lumbar spine multilevels. Lumbar facet arthropathy at multiple levels. Plan:: We will schedule patient for lumbar medial branch blocks for 5, L5-S1 bilaterally. [facility] History Medical History: Reports:: Anxiety, Arrhythmia, Asthma, Atrial Fibrillation, Depression, Diabetes Mellitus Type 2, Gastroesophageal Reflux Disease(GERD), Hyperlipidemia, Hypertension, Migraine, Palpitations Denies:: Cancer, Diabetes Mellitus Type 1, Internal Pacemaker, MRSA, Seizures *Have you ever received a pneumonia vaccine?: No *Have you received a flu vaccine this season?: Yes Other Medical History: Reports: Other. Denies: Blood Transfusion Reaction Laterality Cases: Right: Carpal Tunnel Release, Other Other Surgeries: Yes: No Previous Surgery, Cholecystectomy, Other. No: Pacemaker Amputation: No Fractures: No - *Social History Smoking Status: Never smoker Alcohol Intake: never Alcohol Intake Frequency:: other Substance Use Type: denies use *Occupational Status:: employed Housing: house Household Members: family *Travel in the last 8 weeks: None - Psychiatric History Pschychiatric History:: Reports:: Anxiety, Depression Family Hx:: Diabetes, Hypertension, Other
== END ==
PROVIDERS: Visit Provider Nurse Anesthetist, Certified Registered
DX: M51.36 Other intervertebral disc degeneration, lumbar region (principal); M47.816 Spondylosis without myelopathy or radiculopathy, lumbar region
CPT/HCPCS: 99212; G0463

== ENCOUNTER 2022-03-03 13:25 | Day surgery (SDC) | payer OTHER, SELFPAY ==
[2022-03-03 13:41] VITALS: BP 134/76; PULSE 85; RESP 20; TEMP 36.5; O2SAT 97; BMI 43.3
[2022-03-03 13:50] VITALS: BP 124/84; PULSE 84; RESP 18; O2SAT 97
[2022-03-03 13:52] VITALS: BP 132/85; PULSE 83; RESP 18; O2SAT 99
--- NOTE | 2022-03-03 13:57 | P.PCN_ITS ---
- Procedure Date: 03/03/22 Time: 13:57 Anesthesiologist:: Pérez Perera CRNA Complications:: None Pre-procedure Diagnosis:: Degenerative disc disease lumbar spine. Lumbar facet arthropathy L3-4, L4-5 bilaterally. Post-procedure Diagnosis:: Same Indications for Procedure:: Very pleasant 51-year-old white female who presents to our injection clinic today for bilateral lumbar facet injections L3-4, L4-5. Procedure Details:: Informed consent was obtained and the risk and benefits of the procedure was explained to the patient. Patient was taken to the procedure room where noninvasive monitors were placed, including noninvasive blood pressure cuff as well as pulse oximeter. The area over the lumbar spine was cleansed using chlorhexidine as a cleansing solution. I anesthetized the skin and subcutaneous tissues with 1% Lidocaine. I placed 22-gauge spinal needles into the facet joint/ medial branches of [L3-L4, L4-L5, and L5-S1] bilaterally. Needle place ment was confirmed with fluoroscopy. After confirmation of needle placement, each site was injected with 1 mL of 1% lidocaine and 0.25 % Marcaine and 10 mg of Depo-Medrol. A total of 80 mg of depo medrol was used for bilateral medial branch blocks of [L3-L4, L4-L5, and L5-S1] bilaterally. Patient tolerated the procedure without difficulty. There were no complications. Plan and Disposition:: Patient was discharged without incident.
[2022-03-03 14:00] VITALS: BP 145/73; PULSE 89; RESP 20; O2SAT 98
== END 2022-03-03 14:00 | disposition home or self-care (01) ==
LOC: SC.PAINP 13:26
PROVIDERS: PCP Internal Medicine; Visit Provider Nurse Anesthetist, Certified Registered
DX: M51.36 Other intervertebral disc degeneration, lumbar region (principal); M47.816 Spondylosis without myelopathy or radiculopathy, lumbar region; F41.9 Anxiety disorder, unspecified; J45.909 Unspecified asthma, uncomplicated; I48.91 Unspecified atrial fibrillation; F32.A Depression, unspecified; E11.9 Type 2 diabetes mellitus without complications; K21.9 Gastro-esophageal reflux disease without esophagitis; E78.5 Hyperlipidemia, unspecified; I10 Essential (primary) hypertension; G43.909 Migraine, unspecified, not intractable, without status migrainosus; R00.2 Palpitations
CPT/HCPCS: 64493; 64494; 64495; J1040

== ENCOUNTER 2022-03-09 17:00 | Outpatient (RCR) | payer OTHER, SELFPAY ==
--- NOTE | 2022-02-06 18:14 | HMH.PTOPEV ---
PT Outpatient Evaluation Rehab PT Outpatient Evaluation Start: 02/06/22 16:59 Freq: Status: Active Protocol: Document 02/06/22 16:59 PRITICALOS (Rec: 02/06/22 18:14 AMINTA [id number]) Electronically Signed By Tino Garcia, JACKSON 02/06/22 16:59 Outpatient Therapy Subjective History Subjective History THis is the initial Physical therapy evaluation for Bonny Ye. Pt is a 51 y/o female referred to PT for c/o LBP and BLE/Buttock pain. Pt states c/o LBP for years . Pt states she has lived with back pain most of her life but within the last year to year and a half pain has increased and been significantly more frequent and intense. Pt states she has been going to Chiropractor and this has stopped helping. Pt reports she has undergone 3 rounds of injxns from pain management without relief. Chief Complaint Pain,Stiff,Paresthesia Symptom Type Ache,Throb,Sharp,Dull,Stabbing ,Numbness,Tingling Symptoms Relieved By Rest/Positioning,Ice Symptoms Aggravated By Standing,Walking Prior Functional Limitations None Current Functional Limitations Lifting,Housework,Standing, Recreation Activity,Walking, Bending/Stooping Symptom Description Constant but Variable Level of pain today (0-10) 5 Pain scale - at its best (0-10) 3 Pain scale - at its worst (0-10) 10 Lumbopelvic Eval Posture Lumbar Spine Posture Standing Position Increased Lordosis Assistive device Assistive Devices None / NA Palapation tenderness bilateral thoracic spinal tenderness No lumbar spinal tenderness Yes paraspinal tenderness Yes buttock tenderness Yes Lumbar/Sacral Palpation Findings Tenderness,Spasm,Muscle Guarding Range of Motion Lumbar Spine Active Flexion Range of 50 Motion (degrees) Lumbar Spine Active Extension Range of 10 Motion (degrees) Left Lumbar Spine Lateral Flexion Active 20 Range of Motion (degrees) Right Lumbar Spine Lateral Flexion 20 Active Range of Motion (degrees) Lumbar Spine ROM Limitations Soft Tissue Tightness,Pain Special Tests Lumbar Spine Screen Positive Forward Bending Test- Standing Positive Left,Positi
== END 2022-03-09 17:05 | disposition home or self-care (01) ==
LOC: PT 17:00
PROVIDERS: PCP Internal Medicine; Visit Provider Student in an Organized Health Care Education/Training Program
DX: M54.50 Low back pain, unspecified (principal); M79.605 Pain in left leg; M79.604 Pain in right leg
CPT/HCPCS: 97010; 97012; 97014; 97110; 97163; 97164; G0283

== ENCOUNTER → 2022-03-30 11:26 | Outpatient (POV) | payer OTHER, SELFPAY ==
[2022-03-30 11:50] VITALS: BP 147/84; PULSE 77; RESP 18; TEMP 36.2; O2SAT 99; BMI 43.0
--- NOTE | 2022-03-30 12:36 | HMH.PAINSOAP ---
[facility] Pain Management SOAP Note Subjective:: Patient is a pleasant 51-year-old female who presents today for follow-up after a diagnostic medial branch block/facet injections at bilateral L3-L4 and L4-L5 on March 03, 2022. Patient is current being treated for degenerative disease of lumbar spine with lumbar radiculopathy symptoms, facet arthropathy, lumbar spondylosis. After the procedure, patient had significant relief of 70 to 80% that lasted for about a week. Denies any issues after his procedure. She states that she was able to increase her activity during that week. In the past, we have tried to do bilateral SI injections and a lumbar epidural steroid injection at L4-L5 that provided minimal relief. She states that the medial branch block provided the most relief out of all the other injections. Rates her pain today as 4 out of 10. Alex [id number] and active morphine equivalent of 0. Review of Systems: General: No recent weight changes, no fever, no sleep disturbances Respiratory: No cough, no shortness of air, no recurring pulmonary infections Cardiovascular/peripheral vascular: No chest pain, no palpitations, no edema, no shortness of breath Gastrointestinal: No new onset incontinence, normal bowel movements reported Genitourinary: No new onset incontinence Musculoskeletal: Low back pain Psychiatric: [Normal mood/affect] Neurological: [Denies weakness in extremities], [denies balance issues] Objective:: Physical Exam: General: Alert and oriented x3, no acute distress, pleasant and cooperative Lungs: Respirations even and unlabored, symmetrical chest expansion Eyes: PERRL Musculoskeletal: Flexion and extension of lumbar [spine] somewhat guarded secondary to pain, [antalgic gait noted] Neurological: Speech clear, no gross sensory deficit Assessment:: Degenerative disease of lumbar spine with lumbar radiculopathy symptoms, lumbar facet arthropathy, lumbar spondylosis, sacroiliitis Plan:: Patient is significant relief of 70 to 80% after the diagnostic medial branch block/facet injections at bilateral L3-L4 and L4-L5 that lasted for about a week. She has tried other conservative therapies such as oral medication, injective therapy, physical therapy, and home exercises for greater than 6 weeks. We will schedule the patient for a repeat diagnostic medial branch block/facet injections at bilateral L3-L4 and L4-L5. Risk and benefits of this procedure been discussed with the patient. Patient would like to proceed with the procedure. If the patient gets significant but temporary relief from this diagnostic block, we will schedule the patient for a lumbar RFA. Patient has been instructed to contact the clinic with any concerns before the next appointment. Dr. Méndez has reviewed this note and agrees with this plan of care. This note was dictated using voice recognition software and make contain errors or omissions. [facility] History Medical History: Reports:: Anxiety, Arrhythmia, Asthma, Atrial Fibrillation, Depression, Diabetes Mellitus Type 2, Gastroesophageal Reflux Disease(GERD), Hyperlipidemia, Hypertension, Migraine, Palpitations Denies:: Cancer, Diabetes Mellitus Type 1, Internal Pacemaker, MRSA, Seizures *Have you ever received a pneumonia vaccine?: Yes *Have you received a flu vaccine this season?: Yes Other Medical History: Reports: Other. Denies: Blood Transfusion Reaction Laterality Cases: Right: Carpal Tunnel Release, Other Other Surgeries: Yes: No Previous Surgery, Cholecystectomy, Other. No: Pacemaker Amputation: No Fractures: No - *Social History Smoking Status: Never smoker Alcohol Intake: never Alcohol Intake Frequency:: other Substance Use Type: denies use *Occupational Status:: employed Housing: house Household Members: family *Travel in the last 8 weeks: None - Psychiatric History Pschychiatric History:: Reports:: Anxiety, Depression Family Hx:: No significant family history
== END ==
PROVIDERS: Visit Provider Student in an Organized Health Care Education/Training Program
DX: M51.16 Intervertebral disc disorders with radiculopathy, lumbar region (principal); M47.26 Other spondylosis with radiculopathy, lumbar region
CPT/HCPCS: 99212; G0463

== ENCOUNTER 2022-04-04 13:11 | Day surgery (SDC) | payer OTHER, SELFPAY ==
[2022-04-04 13:26] VITALS: BP 143/73; PULSE 80; RESP 18; TEMP 36.3; O2SAT 97; BMI 43.0
[2022-04-04 13:32] VITALS: BP 123/72; PULSE 78; RESP 20
--- NOTE | 2022-04-04 13:41 | P.PCN_ITS ---
- Procedure Date: 04/04/22 Time: 13:41 Anesthesiologist:: Pérez Perera CRNA Complications:: None Pre-procedure Diagnosis:: Degenerative disc disease lumbar spine multiple levels. Lumbar spondylosis. Lumbar facet arthropathy. Lumbar radiculopathy. Post-procedure Diagnosis:: Same Indications for Procedure:: Very pleasant 51-year-old female whose been in our clinic before for this very procedure. Bilateral L3-4, L4-5 facet injections. Medial branch block. Patient had significant improvement with prior injections. This would be her second round at this level L3-4, L4-5. Patient describes her low back pain as constant, dull, aching. Patient reports the pain intensifies when standing and/or sitting for any length of time. Procedure Details:: Informed consent was obtained and the risk and benefits of the procedure was explained to the patient. Patient was taken to the procedure room where noninvasive monitors were placed, including noninvasive blood pressure cuff as well as pulse oximeter. The area over the lumbar spine was cleansed using chlorhexidine as a cleansing solution. I anesthetized the skin and subcutaneous tissues with 1% Lidocaine. I placed 22-gauge spinal needles into the facet joint/ medial branches of [L3-L4, L4-L5,] bilaterally. Needle placement was confirmed with fluoroscopy. After confirmation of needle placement, each site was injected with 1 mL of 1% lidocaine and 0.25 % Marcaine and 10 mg of Depo- Medrol. A total of 80 mg of depo medrol was used for bilateral medial branch blocks of [L3-L4, L4-L5,] bilaterally. Patient tolerated the procedure without difficulty. There were no complications. Plan and Disposition:: Patient was discharged without incident.
[2022-04-04 13:44] VITALS: BP 134/70; PULSE 76; RESP 18; O2SAT 98
== END 2022-04-04 13:45 | disposition home or self-care (01) ==
LOC: SC.PAINP 13:12
PROVIDERS: PCP Internal Medicine; Visit Provider Nurse Anesthetist, Certified Registered
DX: M51.16 Intervertebral disc disorders with radiculopathy, lumbar region (principal); M47.26 Other spondylosis with radiculopathy, lumbar region; E11.9 Type 2 diabetes mellitus without complications; K21.9 Gastro-esophageal reflux disease without esophagitis; E78.5 Hyperlipidemia, unspecified
CPT/HCPCS: 64493; 64494; 76000

== ENCOUNTER → 2022-04-10 10:26 | Outpatient (POV) | payer OTHER, SELFPAY ==
[2022-04-10 10:53] VITALS: BP 144/79; PULSE 82; RESP 18; TEMP 36.4; O2SAT 99; BMI 43.0
--- NOTE | 2022-04-10 11:22 | HMH.PAINSOAP ---
[facility] Pain Management SOAP Note Subjective:: Patient is a pleasant 51-year-old white female who comes to our clinic this morning for a procedure follow-up. She had a bilateral L3-4, L4-5 facet injection medial branch block. Patient is currently being treated for degenerative disc of lumbar spine with lumbar radiculopathy symptoms, facet arthropathy, lumbar spondylosis. This last injection she is stated had significant improvement, lasting 3 to 4 days, with 80% improvement. This was her second injection at this level. She describes her pain as constant, dull, aching. Patient states pain is worse with sitting and/or standing at any length of time. Today she rates her pain a 4 out of 10. Alex is [id number]. It has been reviewed appropriate. Review of Systems: General: No recent weight changes, no fever, no sleep disturbances Respiratory: No cough, no shortness of air, no recurring pulmonary infections Cardiovascular/peripheral vascular: No chest pain, no palpitations, no edema, no shortness of breath Gastrointestinal: No new onset incontinence, normal bowel movements reported Genitourinary: No new onset incontinence Musculoskeletal: Lumbar, low back pain Psychiatric: [Normal mood/affect] Neurological: [Denies weakness in extremities], [denies balance issues] Objective:: Physical Exam: General: Alert and oriented x3, no acute distress, pleasant and cooperative Lungs: Respirations even and unlabored, symmetrical chest expansion Eyes: PERRL Musculoskeletal: Flexion and extension of lumbar [spine] somewhat guarded secondary to pain, [antalgic gait noted]; Positive Barreto. Neurological: Speech clear, no gross sensory deficit Assessment:: Degenerative disc disease of lumbar spine with lumbar radiculopathy symptoms, lumbar facet arthropathy, lumbar spondylosis, sacroiliitis. Plan:: Patient is has had significant relief of 80% with two medial branch block/facet injections at bilateral L3-L4 and L4-L5 that lasted about 3 to 4 days. She has tried other conservative therapies such as oral medication, injective therapy, physical therapy, and home exercises. We will schedule the patient for a lumbar RFA of bilateral L3-L4 and L4-L5. Patient is not taking any blood thinners. Risk and benefits of the procedure were explained to the patient at length. Patient has been instructed to contact the clinic with any concerns before the next appointment. Dr. Méndez has reviewed this note and agrees with this plan of care. This note was dictated using voice recognition software and make contain errors or omissions. [facility] History I have reviewed the patient's past medical history: Yes Medical History: Reports:: Anxiety, Arrhythmia, Asthma, Atrial Fibrillation, Coronary Artery Disease, Depression, Diabetes Mellitus Type 2, Gastroesophageal Reflux Disease(GERD), Hyperlipidemia, Hypertension, Migraine, Palpitations Denies:: Cancer, Diabetes Mellitus Type 1, Internal Pacemaker, MRSA, Seizures *Have you ever received a pneumonia vaccine?: No *Have you received a flu vaccine this season?: Yes Other Medical History: Reports: Arthritis, Other. Denies: Blood Transfusion Reaction Laterality Cases: Right: Carpal Tunnel Release, Other Other Surgeries: Yes: No Previous Surgery, Cholecystectomy, Other. No: Pacemaker Amputation: No Fractures: No - *Social History Smoking Status: Never smoker Alcohol Intake: never Alcohol Intake Frequency:: other Substance Use Type: denies use *Occupational Status:: other Housing: house Household Members: family *Travel in the last 8 weeks: None - Psychiatric History Pschychiatric History:: Reports:: Anxiety, Depression Family Hx:: No significant family history
== END ==
PROVIDERS: Visit Provider Student in an Organized Health Care Education/Training Program
DX: M51.16 Intervertebral disc disorders with radiculopathy, lumbar region (principal); M47.26 Other spondylosis with radiculopathy, lumbar region; M46.1 Sacroiliitis, not elsewhere classified
CPT/HCPCS: 99212; G0463

== ENCOUNTER 2022-04-28 10:59 | Day surgery (SDC) | payer OTHER, SELFPAY ==
[2022-04-28 11:05] VITALS: BP 129/70; PULSE 87; RESP 18; TEMP 36.3; O2SAT 96; BMI 43.5
[2022-04-28 11:15] VITALS: BP 131/67; PULSE 80; RESP 20
--- NOTE | 2022-04-28 11:28 | P.PCN_ITS ---
- Procedure Date: 04/28/22 Time: 11:29 Anesthesiologist:: Pérez Perera CRNA Complications:: None Pre-procedure Diagnosis:: Urine of disc disease lumbar spine. Lumbar spondylosis. Lumbar facet arthropathy. Post-procedure Diagnosis:: Same Indications for Procedure:: This patient is a very pleasant 51-year-old female that comes our clinic today for bilateral radiofrequency ablation L4-5, L5-S1. Patient responded very well to bilateral MBB's at the same levels. Procedure Details:: Lumbar RFA None Pre-procedure Diagnosis: Degenerative disc disease of lumbar spine with lumbar spondylosis and facet arthropathy Post-procedure Diagnosis: Same Indications for Procedure: Patient is a pleasant 68-year-old white female who we are treating for low back pain with lumbar spondylosis and facet arthropathy. She is done well with medial branch blocks with 80% relief of her pain symptoms. She presents for radiofrequency ablation to the facet joint/medial branches of L4-5 and L5-S1 today. She has already had the right side done and is doing very well. She presents for the left side today. Procedure Details: Lumbar RFA Informed consent was obtained and the risk and benefits of the procedure was explained to the patient. Patient was placed prone on the procedure table. The patient was prepped and draped in sterile fashion. C-arm fluoroscopy was used to view the lumbar spine. The skin and subcutaneous tissues were anesthetized using lidocaine. I placed 20-gauge RF needles into the facet joints of L4-L5 and L5-S1 on the left side. We underwent sensory stimulation. There is good sensory stimulation at 0.8 V. We underwent motor stimulation. There is no motor stimulation at 2 V. We then anesthetized these levels with lidocaine and Depo- Medrol. I used a total of 40 mg Depo-Medrol for all 3 levels. I then burned all 3 levels of L4-5 and L5-S1 on the left side for 4 minutes at 80 ?C. Patient tolerated the procedure well with no complication. Plan and Disposition:: We will follow-up with this patient in 2 weeks. We will reevaluate her symptoms at that time. Plan and Disposition:: Patient was discharged without incident.
[2022-04-28 11:32] VITALS: BP 151/81; PULSE 78; RESP 17; O2SAT 99
== END 2022-04-28 11:33 | disposition home or self-care (01) ==
LOC: SC.PAINP 11:00
PROVIDERS: PCP Internal Medicine; Visit Provider Nurse Anesthetist, Certified Registered
DX: M51.36 Other intervertebral disc degeneration, lumbar region (principal); M47.896 Other spondylosis, lumbar region; M54.06 Panniculitis affecting regions of neck and back, lumbar region
CPT/HCPCS: 64635; 64636; J1040

== ENCOUNTER → 2022-05-18 09:56 | Outpatient (POV) | payer OTHER, SELFPAY ==
[2022-05-18 10:43] VITALS: BP 120/68; PULSE 84; RESP 20; TEMP 36.5; O2SAT 99; BMI 43.0
--- NOTE | 2022-05-18 11:39 | HMH.PAINSOAP ---
[facility] Pain Management SOAP Note Subjective:: Patient is a pleasant 51-year-old female who comes to our office this morning for follow-up. We are currently treating the patient for degenerative disc disease of lumbar spine with lumbar radiculopathy symptoms, lumbar facet arthropathy, lumbar spondylosis, sacroiliitis. Patient states her pain today is a 6 out of 10. She states her pain is in her low back and describes it as a ache that frequently is on the right side down to her feet. She previously had a lumbar RFA on 04/28/2022. She states that this did help some lasting a few days at about 50% relief. Occasionally she still feels like she does feel a little better but majority of the time her pain is back at her original baseline. We have also tried multiple bilateral SI injections, medial branch blocks and a lumbar epidural steroid injection in 2020. She also states in times of more severe pain that it is generalized across her low back. She states that her pain does not seem to be affected by activity but that it is more random nature. She has tried [id number] medications, topical creams with minimal relief. She is also used an ice pack that does provide some relief. We have prescribed her in the past compounding cream but she states this does not help. Her Alex is [id number]. Is been reviewed and appropriate. Review of Systems: General: No recent weight changes, no fever, no sleep disturbances Respiratory: No cough, no shortness of air, no recurring pulmonary infections Cardiovascular/peripheral vascular: No chest pain, no palpitations, no edema, no shortness of breath Gastrointestinal: No new onset incontinence, normal bowel movements reported Genitourinary: No new onset incontinence Musculoskeletal: Low back pain, bilateral hip pain bilateral leg pain Psychiatric: [Normal mood/affect] Neurological: [Denies weakness in extremities], [denies balance issues] Objective:: Physical Exam: General: Alert and oriented x3, no acute distress, pleasant and cooperative Lungs: Respirations even and unlabored, symmetrical chest expansion Eyes: PERRL Musculoskeletal: Flexion and extension of lumbar [spine] somewhat guarded secondary to pain, [antalgic gait noted] Neurological: Speech clear, no gross sensory deficit Assessment:: Generative disc disease of lumbar spine with lumbar spondylosis, lumbar facet arthropathy Plan:: Patient has significant pain in her low back frequently on the right side. Patient had a point tenderness along her low back and bilateral hips during today's exam. I have discussed with the patient regarding trying another epidural steroid injection. Risk and benefits were discussed with the patient. The patient would like to proceed forward with this injection at this time. We will schedule the patient for a right transforaminal epidural steroid injection at L4-L5. Patient has been instructed to contact the clinic with any concerns before the next appointment. Dr. Méndez has reviewed this note and agrees with this plan of care. This note was dictated using voice recognition software and make contain errors or omissions. [facility] History I have reviewed the patient's past medical history: Yes Medical History: Reports:: Anxiety, Arrhythmia, Asthma, Atrial Fibrillation, Coronary Artery Disease, Depression, Diabetes Mellitus Type 2, Gastroesophageal Reflux Disease(GERD), Hyperlipidemia, Hypertension, Migraine, Palpitations Denies:: Cancer, Diabetes Mellitus Type 1, Internal Pacemaker, MRSA, Seizures *Have you ever received a pneumonia vaccine?: No *Have you received a flu vaccine this season?: Yes Other Medical History: Reports: Arthritis, Other. Denies: Blood Transfusion Reaction Laterality Cases: Right: Carpal Tunnel Release, Other Other Surgeries: Yes: No Previous Surgery, Cholecystectomy, Other. No: Pacemaker Amputation: No Fractures: No - *Social History Smoking Status: Never smoker Alcohol Intake: never Alcohol Intake
== END ==
PROVIDERS: Visit Provider Student in an Organized Health Care Education/Training Program
DX: M51.16 Intervertebral disc disorders with radiculopathy, lumbar region (principal); M47.26 Other spondylosis with radiculopathy, lumbar region; M46.1 Sacroiliitis, not elsewhere classified
CPT/HCPCS: 99212; G0463

== ENCOUNTER → 2022-05-24 13:01 | Outpatient (CLI) | payer OTHER, SELFPAY ==
[2022-05-24 13:57] LABS: Alanine Aminotransferase 38 U/L (12-78); Albumin Level 4.2 g/dl (3.5-5.0); Albumin/Globulin Ratio 1.6 (1.1-1.8); Alkaline Phosphatase 131 U/L (38-126); Anion Gap 10.4 mEq/L (5-15); Aspartate Amino Transferase 36 U/L (14-36); Bilirubin,Total 0.6 mg/dl (0.2-1.3); Blood Urea Nitrogen 18 mg/dl (7-17); Calcium 9.6 mg/dl (8.4-10.2); Carbon Dioxide 32 mmol/L (22.0-30.0); Chloride 100 mmol/L (98-107); Chol/HDL Ratio 2.8 (1-3.5); Cholesterol 159 mg/dl (140-200); Estimated Glomerular Filt Rate 75 ml/min (>60); GFR (African American) 91 ML/MIN (>60); Globulin 2.6 g/dL (1.3-3.2); Glucose 116 mg/dl (74-100); HDL Cholesterol 56 mg/dl (40-60); Potassium 4.4 mmoL/L (3.5-5.1); Sodium 138 mmol/L (136-145); Total Protein,Serum 6.8 g/dl (6.3-8.2); Triglycerides 140 mg/dl (30-150); VLDL Cholesterol 28 mg/dL (0-40)
[2022-05-24 14:03] LABS: Basophils # 0.1 K/mm3 (0-0.2); Basophils % 0.8 % (0.1-2.0); Eosinophils # 0.4 K/mm3 (0.0-0.4); Eosinophils % 5.5 % (0.1-12.0); Hematocrit 40.7 % (37.0-47.0); Hemoglobin 13.1 g/dL (12.2-16.2); Lymphocytes % 26.9 % (10-50); Mean Corpuscular HGB Conc 32.3 g/dL (31.8-35.4); Mean Corpuscular Hemoglobin 31.5 pg (27.0-31.2); Mean Corpuscular Volume 97.6 fl (81-99); Mean Platelet Volume 8.3 fl (7.4-10.4); Monocytes # 0.5 K/mm3 (0.1-1.0); Monocytes % 6.5 % (1.7-9.3); Neutrophils # 4.4 K/mm3 (1.8-7.8); Neutrophils % 60.1 % (37.0-80.0); Platelet Count 232 K/mm3 (142-424); Red Blood Count 4.17 M/mm3 (4.20-5.40); Red Cell Distribution Width 14.4 % (11.5-17.5); White Blood Count 7.3 K/mm3 (4.8-10.8)
[2022-05-24 14:10] LABS: Direct LDL Cholesterol 68.08 mg/dL (100-129)
[2022-05-24 14:48] LABS: Hemoglobin A1C 7.3 % (4.0-6.0)
== END ==
PROVIDERS: PCP Internal Medicine; Visit Provider Internal Medicine
DX: E11.9 Type 2 diabetes mellitus without complications (principal); I10 Essential (primary) hypertension; E78.5 Hyperlipidemia, unspecified; M47.817 Spondylosis without myelopathy or radiculopathy, lumbosacral region; E66.01 Morbid (severe) obesity due to excess calories; Z68.41 Body mass index [BMI] 40.0-44.9, adult; Z79.84 Long term (current) use of oral hypoglycemic drugs
CPT/HCPCS: 80053; 80061; 83036; 85025

== ENCOUNTER 2022-06-02 11:49 | Day surgery (SDC) | payer OTHER, SELFPAY ==
[2022-06-02 11:50] VITALS: BP 146/72; PULSE 91; TEMP 36.3; O2SAT 98; BMI 43.9
--- NOTE | 2022-06-02 12:04 | HMH.PMPROC ---
- Procedure Date: 06/02/22 Time: 12:04 Anesthesiologist:: Pérez Perera CRNA Complications:: None Pre-procedure Diagnosis:: Degenerative disc disease lumbar spine multilevels. Lumbar radiculopathy symptoms. Post-procedure Diagnosis:: Same Indications for Procedure:: Patient is a pleasant 51-year-old female who comes our clinic today with chronic low back pain as well as bilateral hip and leg radicular symptoms. Right hip and leg worse than left. Patient has had multiple low back injection procedures in the past including lumbar rhizotomy 3 weeks ago. Procedure Details:: Details of the procedure were explained to the patient. The patient taken the procedure room placed in the prone position on the fluoroscopy table. The area over the lumbar spine was cleaned using chlorhexidine as a cleansing solution. Using fluoroscopy guidance markers were placed on the right lateral border of the L4 and L5 vertebral body. The skin and subcutaneous tissue was anesthetized and 1% lidocaine and 25-gauge needle. At this time under fluoroscopy guidance a 5 inch 22-gauge needle was used to access the upper one third of the L4-5 and the L5-S1 foramen. Needle position was confirmed in the lateral view. At this time 1 cc of 1% lidocaine +20 mg of Depo-Medrol was injected. This was after negative aspiration. Patient tolerated the procedure without difficulty. There were no complications. Plan and Disposition:: Patient was discharged without incident.
[2022-06-02 12:05] VITALS: BP 128/74; PULSE 79; RESP 17; O2SAT 99
== END 2022-06-02 12:05 | disposition home or self-care (01) ==
PROVIDERS: PCP Internal Medicine; Visit Provider Nurse Anesthetist, Certified Registered
DX: M51.16 Intervertebral disc disorders with radiculopathy, lumbar region (principal)
CPT/HCPCS: 62323; J1040

== ENCOUNTER → 2022-06-19 14:26 | Outpatient (POV) | payer OTHER, SELFPAY ==
[2022-06-19 14:33] VITALS: BP 154/73; PULSE 82; RESP 20; TEMP 36.4; O2SAT 98; BMI 43.9
--- NOTE | 2022-06-19 15:11 | EXP.PAIN.SOA ---
[facility] Pain Management SOAP Note Subjective:: Patient is a pleasant 52-year-old female who presents today for follow-up from transforaminal epidural steroid injection at L4-L5 on 06/02/2022. We are currently treating the patient for degenerative disc disease of lumbar spine multilevels with lumbar radiculopathy symptoms, lumbar facet arthropathy, lumbar spondylosis, sacroiliitis. Patient states that she got little to no relief from this last injection. She actually stated that her pain was worse after leaving. Today she rates her pain a 6 out of 10 and states it is all primarily in her low back. She states that this is a aching, throbbing sensation that is worse with increased activity and states it is frequently on her right side down to her feet. Patient denies any new trauma or injury to the site. She denies any change to the location or type of pain she experiences. Patient has had a lumbar RFA on 04/28/2022 that provided about 50% relief. We have also tried multiple bilateral SI injections, medial branch blocks and a lumbar epidural in 2020 with minimal improvement of her symptoms. Patient has tried and failed conservative therapy such as [id number] medications, topical creams and ice and heat, physical therapy and at home stretching and exercises for longer than 6 weeks. Patient still currently sees a chiropractor every 3 to 4 weeks for several years for her neck pain and muscle tension. Patient has tried compounding cream in the past however stated it did not provide any relief of her symptoms. Her Alex is [id number]. It is been reviewed and appropriate. Review of Systems: General: No recent weight changes, no fever, no sleep disturbances Respiratory: No cough, no shortness of air, no recurring pulmonary infections Cardiovascular/peripheral vascular: No chest pain, no palpitations, no edema, no shortness of breath Gastrointestinal: No new onset incontinence, normal bowel movements reported Genitourinary: No new onset incontinence Musculoskeletal: Low back pain Psychiatric: [Normal mood/affect] Neurological: [Denies weakness in extremities], [denies balance issues] Objective:: Physical Exam: General: Alert and oriented x3, no acute distress, pleasant and cooperative Lungs: Respirations even and unlabored, symmetrical chest expansion Eyes: PERRL Musculoskeletal: Flexion and extension of lumbar [spine] somewhat guarded secondary to pain, [antalgic gait noted] Neurological: Speech clear, no gross sensory deficit Assessment:: Degenerative disc disease of lumbar spine with lumbar radiculopathy symptoms, lumbar facet arthropathy, lumbar spondylosis, sacroiliitis Plan:: Patient continues to have significant pain along her low back. We have tried multiple injective therapies that often only provide minimal relief of her symptoms and do not give long-term relief. Patient has also tried and failed conservative therapy such as oral medications, ice and heat, physical therapy, injective therapy, at home exercising and stretching for longer than 6 weeks. Patient did previously try for a spinal cord stimulator trial however it was denied by insurance. I have discussed with the patient regarding a pain pump trial. Risk and benefits were reviewed with the patient. Educational handouts were given. Patient would like to proceed forward with this plan of care. She has already been seen by a psychiatrist for her psych eval. I will also refer her to neurosurgery at today's visit to rule out any additional options. We will plan to proceed forward with a pain pump trial pending insurance approval. Patient has been instructed to contact the clinic with any concerns before the next appointment. Dr. Méndez has reviewed this note and agrees with this plan of care. This note was dictated using voice recognition software and make contain errors or omissions. [facility] Medical History (Updated 02/05/22 @ 11:45 by Arturo Lopez APRN) Abnormal EKG Diabetes mellitus
== END ==
PROVIDERS: PCP Internal Medicine; Visit Provider Nurse Practitioner Family
DX: M51.16 Intervertebral disc disorders with radiculopathy, lumbar region (principal); M46.1 Sacroiliitis, not elsewhere classified; M47.26 Other spondylosis with radiculopathy, lumbar region
CPT/HCPCS: 99212; G0463

== ENCOUNTER → 2022-11-23 14:15 | Outpatient (CLI) | payer OTHER, SELFPAY ==
--- NOTE | 2022-11-23 14:19 | CT_ITS ---
FINAL REPORT TECHNIQUE: Axial imaging of the lumbar spine was obtained without contrast. Sagittal and coronal reformatted images were also obtained and reviewed. This study was performed with techniques to keep radiation doses as low as reasonably achievable (ALARA). Individualized dose reduction techniques using automated exposure control or adjustment of mA and/or kV according to the patient''s size were employed. CLINICAL HISTORY: DDD FINDINGS: There is no fracture. There is mild anterolisthesis of L3 on L4. There are mild degenerative changes.There is no evidence of significant central canal stenosis. L1-L2: An annular disc bulge is present. No evidence of central canal stenosis or neural foraminal narrowing. L2-L3: An annular disc bulge is present. No evidence of central canal stenosis or neural foraminal narrowing. L3-L4: There is an annular disc bulge with facet arthropathy and vertebral osteophytes. There is mild right and moderate left neuroforaminal narrowing. L4-L5: An annular disc bulge with facet arthropathy is present. There is mild bilateral neuroforaminal narrowing. L5-S1: There is an annular disc bulge with facet arthropathy and vertebral osteophytes. Note is made of mild degenerative changes of the SI joints. A right adnexal cystic mass measuring 42 mm is likely an ovarian cyst. 3 mm nonobstructing left renal stone. IMPRESSION: Multilevel degenerative change without acute bony abnormality. Note is made of right adnexal cystic mass and 3 mm nonobstructing left renal stone. Reviewed, Interpreted and Dictated by Maxx Murphy III, MD Transcribed by Abby Saavedra Authenticated and [facility]
== END ==
PROVIDERS: PCP Internal Medicine; Visit Provider Physician Assistant Medical
DX: M47.816 Spondylosis without myelopathy or radiculopathy, lumbar region (principal); M51.36 Other intervertebral disc degeneration, lumbar region
CPT/HCPCS: 72131

== ENCOUNTER → 2022-11-27 12:00 | Outpatient (CLI) | payer OTHER, SELFPAY ==
[2022-11-27 12:16] LABS: Basophils # 0.1 K/mm3 (0-0.2); Basophils % 1.1 % (0.1-2.0); Eosinophils # 0.4 K/mm3 (0.0-0.4); Eosinophils % 4.6 % (0.1-12.0); Hematocrit 40.5 % (37.0-47.0); Hemoglobin 13.4 g/dL (12.2-16.2); Lymphocytes # 1.9 K/mm3 (0.7-4.5); Lymphocytes % 22.7 % (10-50); Mean Corpuscular HGB Conc 33.1 g/dL (31.8-35.4); Mean Corpuscular Hemoglobin 30.1 pg (27.0-31.2); Mean Corpuscular Volume 90.9 fl (81-99); Mean Platelet Volume 9.3 fl (7.4-10.4); Monocytes # 0.6 K/mm3 (0.1-1.0); Neutrophils # 5.4 K/mm3 (1.8-7.8); Neutrophils % 64.6 % (37.0-80.0); Platelet Count 247 K/mm3 (142-424); Red Blood Count 4.46 M/mm3 (4.20-5.40); Red Cell Distribution Width 14.4 % (11.5-17.5); White Blood Count 8.3 K/mm3 (4.8-10.8)
[2022-11-27 13:03] LABS: Erythrocyte Sedimentation Rate 22 mm/hr (0-30)
[2022-11-27 13:38] LABS: Alanine Aminotransferase 31 U/L (12-78); Albumin Level 4.6 g/dl (3.5-5.0); Albumin/Globulin Ratio 1.6 (1.1-1.8); Alkaline Phosphatase 140 U/L (38-126); Anion Gap 11.9 mEq/L (5-15); Aspartate Amino Transferase 32 U/L (14-36); Bilirubin,Total 0.8 mg/dl (0.2-1.3); Blood Urea Nitrogen 18 mg/dl (7-17); Calcium 9.1 mg/dl (8.4-10.2); Carbon Dioxide 32 mmol/L (22.0-30.0); Chloride 99 mmol/L (98-107); Cholesterol 154 mg/dl (140-200); Estimated Glomerular Filt Rate 66 ml/min (>60); GFR (African American) 80 ML/MIN (>60); Globulin 2.9 g/dL (1.3-3.2); Glucose 98 mg/dl (74-100); HDL Cholesterol 52 mg/dl (40-60); Potassium 3.9 mmoL/L (3.5-5.1); Sodium 139 mmol/L (136-145); Total Protein,Serum 7.5 g/dl (6.3-8.2); Triglycerides 160 mg/dl (30-150); VLDL Cholesterol 32 mg/dL (0-40)
[2022-11-27 13:49] LABS: Direct LDL Cholesterol 73.94 mg/dL (100-129)
[2022-11-27 14:57] LABS: Microalbumin/Creatinine Ratio 6.5
[2022-11-27 15:12] LABS: Creatinine,Urine Random 132 mg/dL (Not Estab.)
== END ==
PROVIDERS: PCP Internal Medicine; Visit Provider Internal Medicine
DX: I10 Essential (primary) hypertension (principal); E11.9 Type 2 diabetes mellitus without complications; E78.5 Hyperlipidemia, unspecified; M47.817 Spondylosis without myelopathy or radiculopathy, lumbosacral region; E66.01 Morbid (severe) obesity due to excess calories; Z79.84 Long term (current) use of oral hypoglycemic drugs
CPT/HCPCS: 80053; 80061; 82043; 82570; 83036; 85025; 85651

== ENCOUNTER → 2023-01-29 13:22 | Outpatient (CLI) | payer OTHER, SELFPAY ==
--- NOTE | 2023-01-29 13:25 | US_ITS ---
FINAL REPORT CLINICAL HISTORY: right lower quadrant pain FINDINGS: Transvaginal Ultrasound Technique: Transvaginal sonographic images of the pelvis were obtained. Findings: The uterus measures 5.9 x 4.0 x 2.9. The endometrium is within normal limits at 7 mm. The right ovary measures up to 4.8 cm. The left ovary measures up to 3.1 cm. There is a 4.4 cm probable right ovarian cyst. There is an additional 1.7 cm right ovarian cyst. There is no significant free fluid. IMPRESSION: Right ovarian cysts. Reviewed, Interpreted and Dictated by Maxx Murphy III, MD Transcribed by Alfonso Luna Authenticated and [facility]
--- NOTE | 2023-01-29 13:25 | MM_ITS ---
PROCEDURE INFORMATION: Exam: MG Bilateral Screening 3D Mammography Exam date and time: 01/29/2023 1:15 PM Age: 52 years old Clinical indication: Screening mammogram TECHNIQUE: Imaging protocol: Bilateral Screening tomosynthesis and 2D mammography including computer-aided detection (CAD) when performed. COMPARISON: 1. MG SCBI MM Dig screening mamm BI w/CAD 09/09/2018 9:01 AM 2. MG DMSB DIG MAMM-SCREEN GONZALEZ W/CAD 08/02/2017 9:23 AM 3. MG DMSB DIG MAMM-SCREEN GONZALEZ 07/20/2016 8:19 AM 4. MG DMSB DIG MAMM-SCREEN GONZALEZ 07/13/2015 9:53 AM FINDINGS: MAMMOGRAPHY: Breast composition: The breast is heterogeneously dense, which may obscure small masses. Mass: None. Architectural distortion: No new or suspicious architectural distortion. Calcifications: No new or suspicious calcifications are present Asymmetric density: No new or suspicious asymmetric density is present Skin thickening: None. Axillary adenopathy: None. IMPRESSION: No mammographic evidence of malignancy. Recommend annual screening mammography unless otherwise clinically indicated. ASSESSMENT: BI-RADS category 1: Negative
== END ==
PROVIDERS: PCP Internal Medicine; Visit Provider Obstetrics & Gynecology
DX: Z12.31 Encounter for screening mammogram for malignant neoplasm of breast (principal); R10.31 Right lower quadrant pain
CPT/HCPCS: 76830; 77063; 77067

== ENCOUNTER → 2023-02-23 12:04 | Outpatient (CLI) | payer OTHER, SELFPAY ==
[2023-02-23 13:52] LABS: Hemoglobin A1C 5.7 % (4.0-6.0)
== END ==
PROVIDERS: PCP Internal Medicine; Visit Provider Internal Medicine
DX: E11.9 Type 2 diabetes mellitus without complications (principal); I10 Essential (primary) hypertension; Z79.84 Long term (current) use of oral hypoglycemic drugs
CPT/HCPCS: 83036

== ENCOUNTER → 2023-03-13 12:05 | Outpatient (CLI) | payer OTHER, SELFPAY ==
--- NOTE | 2023-03-13 12:08 | XR_ITS ---
FINAL REPORT CLINICAL HISTORY: KNOT ON FINGER FINDINGS: 3 views of the left hand were obtained. There is no acute fracture or dislocation. There are mild degenerative changes. There is a small calcification adjacent to the 2nd middle phalanx. There is no soft tissue abnormality. IMPRESSION: Mild degenerative change. Reviewed, Interpreted and Dictated by Maxx Murphy III, MD Transcribed by Alfonso Luna Authenticated and [facility]
== END ==
PROVIDERS: PCP Internal Medicine; Visit Provider Internal Medicine
DX: M79.645 Pain in left finger(s) (principal); R22.32 Localized swelling, mass and lump, left upper limb
CPT/HCPCS: 73130

== ENCOUNTER → 2023-03-26 16:21 | Outpatient (CLI) | payer OTHER, SELFPAY ==
[2023-03-26 17:01] LABS: Basophils # 0.1 K/mm3 (0-0.2); Basophils % 0.6 % (0.1-2.0); Eosinophils # 0.5 K/mm3 (0.0-0.4); Eosinophils % 5.6 % (0.1-12.0); Hematocrit 38.4 % (37.0-47.0); Hemoglobin 12.6 g/dL (12.2-16.2); Lymphocytes # 2.2 K/mm3 (0.7-4.5); Lymphocytes % 26.9 % (10-50); Mean Corpuscular HGB Conc 32.9 g/dL (31.8-35.4); Mean Corpuscular Hemoglobin 30.5 pg (27.0-31.2); Mean Corpuscular Volume 92.8 fl (81-99); Mean Platelet Volume 6.6 fl (7.4-10.4); Monocytes # 0.7 K/mm3 (0.1-1.0); Monocytes % 8.5 % (1.7-9.3); Neutrophils # 4.7 K/mm3 (1.8-7.8); Neutrophils % 58.4 % (37.0-80.0); Platelet Count 218 K/mm3 (142-424); Red Blood Count 4.14 M/mm3 (4.20-5.40); Red Cell Distribution Width 13.8 % (11.5-17.5); White Blood Count 8.1 K/mm3 (4.8-10.8)
[2023-03-26 17:18] LABS: Alanine Aminotransferase 32 U/L (12-78); Albumin Level 4.6 g/dl (3.5-5.0); Albumin/Globulin Ratio 1.8 (1.1-1.8); Alkaline Phosphatase 130 U/L (38-126); Aspartate Amino Transferase 32 U/L (14-36); Bilirubin,Total 0.6 mg/dl (0.2-1.3); Blood Urea Nitrogen 15 mg/dl (7-17); Calcium 9.4 mg/dl (8.4-10.2); Carbon Dioxide 32 mmol/L (22.0-30.0); Chloride 96 mmol/L (98-107); Estimated Glomerular Filt Rate 47 ml/min (>60); GFR (African American) 57 ML/MIN (>60); Globulin 2.6 g/dL (1.3-3.2); Glucose 141 mg/dl (74-100); Sodium 140 mmol/L (136-145); Total Protein,Serum 7.2 g/dl (6.3-8.2)
[2023-03-26 17:35] LABS: HCG,Quantitative < 2 mIU/ml (0-5.42)
== END ==
PROVIDERS: PCP Internal Medicine; Visit Provider Obstetrics & Gynecology
DX: Z01.812 Encounter for preprocedural laboratory examination (principal); R10.2 Pelvic and perineal pain
CPT/HCPCS: 36415; 80053; 84702; 85025

== ENCOUNTER 2023-03-28 06:01 | Day surgery (SDC) | payer OTHER, SELFPAY ==
[2023-03-27 08:43] VITALS: BMI 44.8
[2023-03-28] VITALS (12 sets, daily range): BP systolic 129–151; BP diastolic 64–87; PULSE 79–110; RESP 14–20; TEMP 36.1–36.6; O2SAT 91–99
[2023-03-28 06:36] LABS: POC Glucose,Bedside 139 (70-110)
--- NOTE | 2023-03-28 08:26 | EXP.ANES.CKL ---
[facility] Disclaimer: The information contained in this section may have been updated after the patient was seen, as this information can be updated by other users. Medical History Abnormal EKG Allergies Anxiety Back pain Diabetes mellitus Diastolic dysfunction Dyspnea GERD (gastroesophageal reflux disease) HLD (hyperlipidemia) HTN (hypertension) Kidney stone SANDEEP (obstructive sleep apnea) Ovarian cyst Palpitations Pelvic pain Sinus tachycardia Snoring EMMY (stress urinary incontinence, female) Surgical History History of carpal tunnel surgery History of incision and drainage Hx of breast biopsy Hx of cervical biopsy Hx of cholecystectomy Hx of wisdom tooth extraction Family History Other Diabetes Family history of acute congestive heart failure Graves disease Hypertension Social History (Updated 03/28/23 @ 06:36 by Regina Davila RN) Smoking Status: Never smoker alcohol intake: never substance use type: denies use current occupational status: employed Travel in the last 8 weeks: None household members: family housing: house current occupation: [employer] current occupational exposures/hazards: No caffeine: Yes [employer] Anesthesia Checklist Patient Identification Patient Identification: Arm Band Structural Data Admitted From: Home Planned Operative Procedure/s: Diagnostic Laparoscopy, Possible RSO Consent for Planned Operative Procedure(s) Verified: Yes Verified Documents: Surgical Consent and History and Physical NPO Status Verified Time NPO: 00:00 Additional verifications Anesthesia Reactions: Yes (PT REPORTS AFTER LAST SX HARD TO TAKE A DEEP BREATH AFTER SX,FEET ITCH) Hx Blood Transfusions: No Blood Transfusion Reaction: No Airway Assessment C-Spine Mobility Assessed: Yes TMJ Mobility Assessed: Yes Dentition: Good Dentition Neurological Assessment Level of Consciousness: Awake and Alert Anesthesia Plan Anesthesia Plan: Verified ASA Class: III Anesthesia Type: General
--- NOTE | 2023-03-28 08:44 | EXP.OP.NOTE ---
Date of procedure: 03/28/23 Pre-op Diagnosis:: 1. Back pain 2. Pelvic pain 3. Right ovarian cyst Post-op Diagnosis:: 1. Back pain 2. Pelvic pain 3. Right paratubal cyst Procedure performed:: Laparoscopy, right salpingectomy Surgeon:: Michelle Bains DO Production Roustabout(s):: N/a ELECTRONIC SCALE ASSEMBLER AND TESTER:: Benito Albarado Anesthesia: GETA Estimated blood loss (mL): 5 Clinical Note:: Ms Bonny Ye is a 52 yo P0000 who presents for preop visit. She had at CT scan performed in November [address] scan incidently found a right adnexal cystic structure, 42 mm. She admits to occasional RLQ crampy pain that is a little more than menstrual cramps. Last period was > 1 year ago.?She reports she has been having severe back pain. She is going to a chiropractor and pain management with no relief. She is thinking the cysts are causing her back pain. Pelvic ultrasound 01/29/23 demonstrated two right ovarian cysts, 4.4 cm and 1.7 cm. Operative findings:: 1. On bimanual exam, uterus normal size and shape, midposition. Difficult to fully assess adnexa secondary to patient's body habitus 2. On laparoscopic exam, liver, stomach and bowel grossly normal. Grossly normal appearing uterus and bilateral ovaries. Two large right paratubal cysts noted. Normal appearing left fallopian tube. No evidence of adhesions or endometriosis. Operative note:: Risks, benefits and alternatives were discussed with the patient. Risks include but are not limited to bleeding, infection, damage to adjacent structures and VTE. Patient voiced understanding and agreed to proceed with surgery. She was wheeled back to the operating room and placed under general anesthesia without difficulty. She was placed in the dorsal lithotomy position and prepped and draped in normal sterile fashion. A straight catheter was used to drain the bladder. A bimanual exam was performed. A sponge stick was placed in vaginal vault. Attention was then drawn to the abdomen. A 1.5 cm infraumbilical incision was made. Veress needle was tested and inserted intraabdominally without difficulty. Opening pressure of 4 mm Hg. Abdomen was then insulflated to 15 mm Hg. Trocar was inserted through infraumbilical incision and laparoscope was inserted. Abdomen was viewed in its entirety. See findings above. Pictures were taken. Left lower quadrant was transilluminated. 5 mm incision was made and 5 mm disposable blunt trocar was inserted into the abdomen under direct laparoscopic visualization. Trocar was removed and sleeve was left in place. Right lower quadrant was transilluminated. A 1.5 cm incision was made and an 11 mm disposable trocar was inserted into the abdomen under direct laparoscopic visualization. Obturator was removed and sleeve was left in place. Ligasure monopolar hook was used to create a small hole in right paratubal cyst. Clear cystic fluid was suctioned with suction core java engineer. Once paratubal cyst was collapsed the structure was grasped with atramatic graspers. Ligasure was used to transect the right mesosalpinx and fallopian tube at uterine cornua, leaving right ovary in situ. Right fallopian tubes will be sent to pathology for review. Hemostasis was noted. Pelvis was suction irrigated. Left lower quadrant trocar was removed under direct laparoscopic visualization. Right lower quadrant trocar was removed under direct laparoscopic visualization. Pneumoperitoneum was released into the atmosphere. Infraumbilical trocar was removed under direct laparoscopic visualization to ensure no herniation of bowel or omentum. Skin incisions were closed with 3-0 Vicryl. Dermabond was applied over closed skin incisions. Sponge stick was removed from the vagina. Patient was cleaned and placed into the dorsal supine position. She awoke from anesthesia without difficulty. She was transported to the recovery room in stable condition. She was given instructions for discharge and to follow-up in the office in 2 weeks at which time pathology will be reviewed.
--- NOTE | 2023-03-28 08:51 | P.PNANES_ITS ---
[facility] Anesthesia Record Part I Anesthesia Record I Intake, IV Amount: 1,000 Estimated blood loss (mL): 5 Urine output (mL): 20 Blood Pressure: 135/87 SaO2: 91 Pulse Rate: 92 Respiratory Rate: 16 Temperature: 97 F Patient is:: Drowsy and Stable Stable to PACU at:: 08:50
[2023-03-28 09:00] LABS: POC Glucose,Bedside 134 (70-110)
--- NOTE | 2023-03-28 09:52 | EXP.ANES.I ---
[facility] Anesthesia Record Part I Anesthesia Record I Intake, IV Amount: 800 Estimated blood loss (mL): 5 Urine output (mL): 0 Blood Pressure: 134/73 SaO2: 98 Pulse Rate: 79 Respiratory Rate: 16 Temperature: 97 F Patient is:: Awake and Stable Stable to PACU at:: 09:52
--- NOTE | 2023-03-29 10:07 | P.PNANES_ITS ---
[facility] Anesthesia Record Part II Anesthesia Record Part II Discharge Time: 09:20 Destination: Surgical Day Care (OP Surgery) PACU nurse assessment reviewed?: Yes Patient Condition:: Good Anesthesia Complications:: None Swallowing reflex intact?: Yes Cyanosis?: No Blood Pressure: 136/75 Pulse Rate: 92 Temperature: 97.2 F Mental Status: Alert & Oriented Pain level:: 4 Nausea and/or vomitting:: None Intake, IV Amount: 0
[2023-03-29 10:08] VITALS: BP 136/75; PULSE 92; TEMP 36.2
== END 2023-03-28 10:08 | disposition home or self-care (01) ==
PROVIDERS: PCP Internal Medicine; Visit Provider Obstetrics & Gynecology
PROC: (CPT 49320; principal; 2023-03-28 07:30)
DX: N83.8 Other noninflammatory disorders of ovary, fallopian tube and broad ligament (principal); M54.9 Dorsalgia, unspecified; R10.2 Pelvic and perineal pain; E11.9 Type 2 diabetes mellitus without complications; Z79.899 Other long term (current) drug therapy
CPT/HCPCS: 58661; 82962; J2405

== ENCOUNTER → 2023-06-01 11:21 | Outpatient (CLI) | payer OTHER, SELFPAY ==
[2023-06-01 13:10] LABS: Basophils % 0.4 % (0.1-2.0); Eosinophils # 0.3 K/mm3 (0.0-0.4); Eosinophils % 3.8 % (0.1-12.0); Hematocrit 39.9 % (37.0-47.0); Hemoglobin 13.2 g/dL (12.2-16.2); Lymphocytes # 1.8 K/mm3 (0.7-4.5); Lymphocytes % 22.2 % (10-50); Mean Corpuscular HGB Conc 33.2 g/dL (31.8-35.4); Mean Corpuscular Hemoglobin 30.7 pg (27.0-31.2); Mean Corpuscular Volume 92.4 fl (81-99); Mean Platelet Volume 8.7 fl (7.4-10.4); Monocytes # 0.6 K/mm3 (0.1-1.0); Neutrophils # 5.4 K/mm3 (1.8-7.8); Neutrophils % 66.5 % (37.0-80.0); Platelet Count 229 K/mm3 (142-424); Red Blood Count 4.31 M/mm3 (4.20-5.40); Red Cell Distribution Width 14.3 % (11.5-17.5); White Blood Count 8.1 K/mm3 (4.8-10.8)
[2023-06-01 13:38] LABS: Chloride 97 mmol/L (98-107)
[2023-06-01 13:39] LABS: Potassium 4.1 mmoL/L (3.5-5.1); Sodium 139 mmol/L (136-145)
[2023-06-01 13:41] LABS: Alanine Aminotransferase 36 U/L (12-78); Alkaline Phosphatase 153 U/L (38-126); Aspartate Amino Transferase 35 U/L (14-36); Bilirubin,Total 0.7 mg/dl (0.2-1.3); Blood Urea Nitrogen 17 mg/dl (7-17); Estimated Glomerular Filt Rate 58 ml/min (>60); GFR (African American) 70 ML/MIN (>60)
[2023-06-01 13:42] LABS: Albumin Level 4.4 g/dl (3.5-5.0); Albumin/Globulin Ratio 1.4 (1.1-1.8); Anion Gap 15.1 mEq/L (5-15); Carbon Dioxide 31 mmol/L (22.0-30.0); Chol/HDL Ratio 2.7 (1-3.5); Cholesterol 170 mg/dl (140-200); Globulin 3.1 g/dL (1.3-3.2); Glucose 112 mg/dl (74-100); HDL Cholesterol 63 mg/dl (40-60); Total Protein,Serum 7.5 g/dl (6.3-8.2); Triglycerides 214 mg/dl (30-150); VLDL Cholesterol 43 mg/dL (0-40)
[2023-06-01 13:45] LABS: Hemoglobin A1C 6.4 % (4.0-6.0)
[2023-06-01 13:53] LABS: Direct LDL Cholesterol 72.64 mg/dL (100-129)
== END ==
PROVIDERS: PCP Internal Medicine; Visit Provider Internal Medicine
DX: E11.9 Type 2 diabetes mellitus without complications (principal); I10 Essential (primary) hypertension; E78.5 Hyperlipidemia, unspecified; E66.01 Morbid (severe) obesity due to excess calories
CPT/HCPCS: 80053; 80061; 83036; 85025

== ENCOUNTER → 2023-06-15 06:49 | Outpatient (CLI) | payer OTHER, SELFPAY ==
--- NOTE | 2023-06-15 06:53 | NM_ITS ---
APPROVED REPORT Exam: Nuclear Stress Test Indication: soa..fatigue Patient Location: Outpatient Stress Tech: Caprice hBakta [place] Tech:BRANDON Rios RT(R)(N) Ht: 5 ft 2 in Wt: 255 lbs Bra Size: 40d HR: 81 bpm BP: 121/60 mmHg BSA: 2.12 m2 Rhythm: NSR TID: 1.31 BMI: 46.6 History: soa..fatigue Procedure: Patient received 0.4 mg of intravenous Lexiscan, resting heart rate 81 bpm, resting blood pressure 121/60 mmHg, with Lexiscan maximum heart rate achieved was 112 bpm which is 85 % of the maximum predicted heart rate and blood pressure was 141/67 mmHg. With Lexiscan, patient denied any complaint of chest pain. Cardiac Stress and Resting SPECT Images: Cardiac Stress and Resting SPECT images were obtained using technetium 99m Myoview 32.3 mCi stress and 10.93 mCi at rest. Raw images demonstrate significant soft tissue overlap with the cardiac borders. This may affect the diagnostic interpretation of the study findings. Resting and stress imaging in supine position demonstrate a medium sized, moderate, fixed perfusion defect in the basal to mid anterior LV wall. This is no longer visualized in prone stress imaging. Findings are suggestive of soft tissue attenuation. There is increased transient ischemic dilatation ratio (TID 1.30), suggestive of possible multivessel disease or balanced ischemia. Gated imaging demonstrates normal global and regional LV systolic function. LVEF is calculated at 73%. Conclusion: Soft tissue attenuation is present No definite evidence of fixed or reversible perfusion defects. There is increased transient ischemic dilatation ratio (TID 1.30), suggestive of possible multivessel disease or balanced ischemia. Gated imaging demonstrates normal global and regional LV systolic function. LVEF is calculated at 73%. Electronically signed by : Roula Finney, 06/18/2023 22:24:17
--- NOTE | 2023-06-15 08:47 | CA_ITS ---
APPROVED REPORT Exam: Pharmacologic Technologist: Caprice Gregory, Ht: 5 ft 2 in Wt: 255 lbs BSA: 2.12 m2 HR: 79 bpm BP: 121/60 mmHg Rhythm: NSR Medical History Medications: Omeprazole,,,,, Aspirin,,,,, Metformin,,,,, Losartan,,,,, Atorvastatin,,,,, Pioglitazone,,,,, PERCOCET,,,,, Naproxen,,,,, LoraTADINE,,,,, Sertraline,,,,, TrULicity,,,,, Metoprolol Succinate ER,,,,, Stress Test Details Test: LEXISCAN Reason for pharmacologic stress test: physical limitation. Reversal agent Aminophyline 200.0 mg, given intravenously for nausea, headache. HR Resting HR: 81 bpm Max Heart Rate (APMHR): 167 bpm Max HR Achieved: 112 bpm Target HR (85% APMHR): 142 bpm % of APMHR: 67 Recovery HR: 82 bpm BP Resting BP: 121.0/60.0 mmHg Max BP: 141.0/67.0 mmHg Recovery BP: 128.0/65.0 mmHg ECG Resting ECG: NSR, nonspecific ST changes in inferolateral LV acharya Stress ECG: No change Arrhythmia: None Clinical Exercise duration: 04:00 min Highest Stage Achieved: Stress ECG Conclusion Stress Patient developed nausea, mild SOA, and headache. Recovery 1 min: Aminophylline 100mg slow IV given. 2 min: Slight improvement, but persistence, of symptoms. 3 min: Aminophylline 100mg slow IV repeated. 5 min: Nausea better, ARTIS still present but slightly improved. Vital signs stable. Symptoms: SOA, nausea, ARTIS. No CP. Arrhythmias/Ectopy: None. ST-T Changes: No significant ST changes Conclusion: Non-diagnostic Lexiscan stress due to baseline abnormalities. Myoview images reported separately. Test Summary REST . . . . . . . Resting REST 04:46 . . 81 . 121/ 60 . . Stage 1 01:00 . . 105 . . . . Stage 2 01:00 . . 106 . . . . Stage 3 01:00 . . 106 . 129/ 70 . . Stage 4 01:00 . . 104 . . . Stop exercise at 04:00 RECOVERY 01:00 . . 99 . . . . RECOVERY 02:00 . . 89 . . . . RECOVERY 03:00 . . 81 . . . . RECOVERY 04:00 . . 84 . . . . RECOVERY 05:00 . . 82 . 129/ 64 . . RECOVERY 06:00 . . 82 . 128/ 65 . . RECOVERY 06:47 . . 78 . 128/ 65 . . Electronically signed by : Roula Finney, 06/18/2023 22:21:15
== END ==
PROVIDERS: PCP Internal Medicine; Visit Provider Physician Assistant
DX: I25.10 Atherosclerotic heart disease of native coronary artery without angina pectoris (principal); I10 Essential (primary) hypertension; E11.9 Type 2 diabetes mellitus without complications; E78.5 Hyperlipidemia, unspecified; R53.83 Other fatigue; Z79.84 Long term (current) use of oral hypoglycemic drugs
CPT/HCPCS: 78452; 93017; A9502; J0280; J2785

== ENCOUNTER 2023-07-04 08:56 | Day surgery (SDC) | payer OTHER, SELFPAY ==
[2023-07-04] VITALS (12 sets, daily range): BP systolic 110–155; BP diastolic 58–83; PULSE 71–94; RESP 16–19; O2SAT 94–98; BMI 46.7
--- NOTE | 2023-07-04 07:10 | IR_ITS ---
APPROVED REPORT Patient Location: Outpatient Portable Machine Sander: BRANDON Nava RT (R) PROCEDURES Left heart catheterization Left ventriculogram Selective coronary angiogram INDICATION Abnormal Myoview, Angina pectoris Informed consent was obtained prior to the procedure. COMPLICATIONS None Estimated Blood Loss: Less than 10 mls TECHNIQUE One percent lidocaine used to anesthetize the right anterior aspect of the wrist. The right radial artery was accessed via the Seldinger technique. A 6 Singaporean sheath was placed in the right radial artery. 2.5 mg of Verapamil, 800 mcg of nitroglycerin, 1mg Lidocaine and 5000 U Heparin were given through the arterial sheath. The papa catheter was also used to perform left heart catheterization, left ventriculogram and selective coronary angiogram. At the end of the procedure the sheath was removed good hemostasis was achieved using Traclet band, patient was transferred to the postop holding area in stable condition. ANGIOGRAPHIC RESULTS The left main artery Normal The left anterior descending artery Has proximal 10% luminal irregularities with a mid vessel focal 50% concentric stenosis. The remaining LAD has mild luminal irregularities The circumflex artery Large dominant normal The right coronary artery Vestigial normal The PENA ventriculogram reveals Normal to slightly hyperdynamic at 70% The left ventricular end-diastolic pressure 10 to 15 mmHg IMPRESSION Moderate mid LAD disease as described above which is best managed medically unless recalcitrant angina pectoris occurs Normal slightly hyperdynamic ventricle consistent with diastolic dysfunction and/or hypertensive heart disease Normal LVEDP PLAN 1. I strongly favor medical management at this point. Should patient experience recalcitrant angina pectoris refractory to medical management only then what I consider revascularizing this vessel 2. Aggressive risk factor modification Electronically signed by : Jim Arizmendi MD 07/04/2023 10:39:43
[2023-07-04 09:44] LABS: Anion Gap 14.8 mEq/L (5-15); Blood Urea Nitrogen 14 mg/dl (7-17); Calcium 9.2 mg/dl (8.4-10.2); Carbon Dioxide 30 mmol/L (22.0-30.0); Chloride 98 mmol/L (98-107); Creatinine Clearance Estimated 47 mL/min (50-200); Estimated Glomerular Filt Rate 52 ml/min (>60); GFR (African American) 63 ML/MIN (>60); Glucose 149 mg/dl (74-100); Potassium 3.8 mmoL/L (3.5-5.1); Sodium 139 mmol/L (136-145)
[2023-07-04 09:52] LABS: Basophils # 0.1 K/mm3 (0-0.2); Basophils % 0.8 % (0.1-2.0); Eosinophils # 0.3 K/mm3 (0.0-0.4); Eosinophils % 4.3 % (0.1-12.0); Hemoglobin 13.7 g/dL (12.2-16.2); Lymphocytes # 1.7 K/mm3 (0.7-4.5); Lymphocytes % 25.6 % (10-50); Mean Corpuscular HGB Conc 32.6 g/dL (31.8-35.4); Mean Corpuscular Hemoglobin 30.5 pg (27.0-31.2); Mean Corpuscular Volume 93.6 fl (81-99); Mean Platelet Volume 7.5 fl (7.4-10.4); Monocytes # 0.5 K/mm3 (0.1-1.0); Neutrophils # 4.1 K/mm3 (1.8-7.8); Neutrophils % 62.2 % (37.0-80.0); Platelet Count 221 K/mm3 (142-424); Red Blood Count 4.49 M/mm3 (4.20-5.40); Red Cell Distribution Width 14.3 % (11.5-17.5); White Blood Count 6.6 K/mm3 (4.8-10.8)
== END 2023-07-04 13:24 | disposition home or self-care (01) ==
LOC: CATHLAB 08:57
PROVIDERS: PCP Internal Medicine; Visit Provider Internal Medicine
DX: R94.39 Abnormal result of other cardiovascular function study (principal); E11.9 Type 2 diabetes mellitus without complications; E78.5 Hyperlipidemia, unspecified; I10 Essential (primary) hypertension; I25.118 Atherosclerotic heart disease of native coronary artery with other forms of angina pectoris; Z79.84 Long term (current) use of oral hypoglycemic drugs; Z79.899 Other long term (current) drug therapy
CPT/HCPCS: 80048; 85025; 93458; 99152; 99153; C1725; C1760; C1769; J1644; Q9967

== ENCOUNTER → 2023-09-17 13:49 | Outpatient (CLI) | payer OTHER, SELFPAY ==
--- NOTE | 2023-09-17 13:52 | US_ITS ---
FINAL REPORT CLINICAL HISTORY: F/U THYROID CYST COMPARISON: 06/04/2020 FINDINGS: THYROID ULTRASOUND: The right lobe of the thyroid gland has a volume of 7.4 cc, within normal limits. The left lobe of the thyroid gland has a volume of 10.2 cc, also within normal limits. The thyroid gland is slightly larger than noted on the prior ultrasound of 2019. There are numerous benign-appearing cysts, and suspicious solid lesions are seen in either thyroid gland. The largest cyst is in the left lobe and measures 12 x 13 x 6 mm in size, was previously 12 x 14 x 7 mm in size, stable. IMPRESSION: Multiple benign-appearing thyroid cysts, TI-RADS category 1. No additional follow-up is needed at this time. Reviewed, Interpreted and Dictated by Malick Jenkins MD Transcribed by Pili Hamlin Authenticated and [facility]
== END ==
PROVIDERS: PCP Internal Medicine; Visit Provider Internal Medicine
DX: E04.1 Nontoxic single thyroid nodule (principal)
CPT/HCPCS: 76536

== ENCOUNTER 2023-12-11 16:48 | Outpatient (CLI) | payer OTHER, SELFPAY ==
[2023-12-11 18:03] LABS: Chloride 102 mmol/L (98-107); Potassium 4.3 mmoL/L (3.5-5.1); Sodium 138 mmol/L (136-145)
[2023-12-11 18:06] LABS: Alanine Aminotransferase 44 U/L (12-78); Albumin Level 4.3 g/dl (3.5-5.0); Albumin/Globulin Ratio 1.5 (1.1-1.8); Alkaline Phosphatase 179 U/L (38-126); Anion Gap 9.3 mEq/L (5-15); Aspartate Amino Transferase 53 U/L (14-36); Bilirubin,Total 0.7 mg/dl (0.2-1.3); Blood Urea Nitrogen 17 mg/dl (7-17); Calcium 9.2 mg/dl (8.4-10.2); Carbon Dioxide 31 mmol/L (22.0-30.0); Chol/HDL Ratio 3.6 (1-3.5); Cholesterol 162 mg/dl (140-200); Estimated Glomerular Filt Rate 65 ml/min (>60); GFR (African American) 79 ML/MIN (>60); Globulin 2.9 g/dL (1.3-3.2); Glucose 155 mg/dl (74-100); HDL Cholesterol 45 mg/dl (40-60); Total Protein,Serum 7.2 g/dl (6.3-8.2); Triglycerides 338 mg/dl (30-150); VLDL Cholesterol 68 mg/dL (0-40)
[2023-12-11 18:34] LABS: Hemoglobin A1C 7.5 % (4.0-6.0)
[2023-12-11 18:36] LABS: Thyroid Stimulating Hormone 1.71 uIU/mL (0.465-4.68)
[2023-12-11 18:41] LABS: Creatinine,Urine Random 91 mg/dL (Not Estab.)
[2023-12-11 18:46] LABS: Microalbumin/Creatinine Ratio 7.1
== END 2023-12-11 23:59 ==
LOC: LAB.DROPOF 16:49
PROVIDERS: PCP Internal Medicine; Visit Provider Internal Medicine
DX: E11.9 Type 2 diabetes mellitus without complications (principal); I10 Essential (primary) hypertension; E78.5 Hyperlipidemia, unspecified; E04.2 Nontoxic multinodular goiter; E66.01 Morbid (severe) obesity due to excess calories; M47.817 Spondylosis without myelopathy or radiculopathy, lumbosacral region; Z68.42 Body mass index [BMI] 45.0-49.9, adult; Z79.84 Long term (current) use of oral hypoglycemic drugs
CPT/HCPCS: 80053; 80061; 82043; 82570; 83036; 84443

== ENCOUNTER 2024-01-31 14:48 | Outpatient (CLI) | payer OTHER, SELFPAY ==
--- NOTE | 2024-01-31 14:49 | US_ITS ---
PROCEDURE: US TRANSVAGINAL CLINICAL INDICATION: pelvic and RLQ pain COMPARISON: CT CT LUMBAR SPINE WO CON from 11/23/2022 US US TRANSVAGINAL from 01/29/2023 FINDINGS: Transvaginal sonographic images of the pelvis were obtained. UTERUS: 6.0cm x 3.2cmx 2.7cm anteverted, anteflexed with a combined endometrial thickness of 5.2 mm. There is a cluster of small cysts in lower uterine segment of questionable significance. Likely nabothian cysts. LEFT OVARY: 3.0cmx2.1cmx1.9cm with a volume of 6.3ml. Heterogenous appearance, likely atrophic. RIGHT OVARY: 2.2cmx 1.5cmx1.9cm with a volume of 4.1ml. Small 6.5 mm follicle in the right ovary. The previously described 4+ cm follicle has resolved. Both ovaries are seen and appear normal. Doppler flow to both ovaries are seen. There is no fluid in the cul-de-sac. IMPRESSION: 1. Anteverted anteflexed uterus normal in shape and size with a thin endometrium. 2. There is a small cluster of cysts in the lower uterine segment likely nabothian cysts. 3. Left ovary appears atrophic, right ovary has a small follicle measuring 6.5 mm. 4. No fluid in the cul-de-sac Dictated by: Turner Arroyo MD 01/31/2024 16:11 Turner Arroyo MD in OV 01/31/2024 16:11
== END 2024-01-31 23:59 | disposition home or self-care (01) ==
LOC: RAD 14:49
PROVIDERS: PCP Internal Medicine; Visit Provider Obstetrics & Gynecology
DX: R10.2 Pelvic and perineal pain (principal); R10.31 Right lower quadrant pain; G89.29 Other chronic pain
CPT/HCPCS: 76830

== ENCOUNTER 2024-02-01 09:52 | Outpatient (CLI) | payer OTHER, SELFPAY ==
--- NOTE | 2024-02-01 09:53 | MM_ITS ---
PROCEDURE INFORMATION: Exam: MG Bilateral Screening 3D Mammography Exam date and time: 02/01/2024 9:48 AM Age: 53 years old Clinical indication: Screening examination TECHNIQUE: Imaging protocol: Bilateral Screening tomosynthesis and 2D mammography including computer-aided detection (CAD) when performed. COMPARISON: 1. MG MM DIG SCREENING MAMM BI W/CAD 01/29/2023 1:15 PM 2. MG SCBI MM Dig screening mamm BI w/CAD 09/09/2018 9:01 AM FINDINGS: MAMMOGRAPHY: Breast composition: The breasts are heterogeneously dense, which may obscure small masses. Mass: None. Architectural distortion: None. Calcifications: No suspicious calcifications. Asymmetric density: None. Skin thickening: None. Axillary adenopathy: None. IMPRESSION: No mammographic evidence of malignancy. Annual screening is recommended unless otherwise clinically indicated. ASSESSMENT: BI-RADS Category 1: Negative
== END 2024-02-01 23:59 ==
LOC: RAD 09:53
PROVIDERS: PCP Internal Medicine; Visit Provider Obstetrics & Gynecology
DX: Z12.31 Encounter for screening mammogram for malignant neoplasm of breast (principal)
CPT/HCPCS: 77063; 77067

== ENCOUNTER 2024-06-16 12:28 | Outpatient (CLI) | payer OTHER, SELFPAY ==
[2024-06-16 12:42] LABS: Basophils % 0.6 % (0.1-2.0); Eosinophils # 0.3 K/mm3 (0.0-0.4); Eosinophils % 4.3 % (0.1-12.0); Hematocrit 39.2 % (37.0-47.0); Hemoglobin 12.5 g/dL (12.2-16.2); Lymphocytes # 1.8 K/mm3 (0.7-4.5); Lymphocytes % 26.2 % (10-50); Mean Corpuscular HGB Conc 31.9 g/dL (31.8-35.4); Mean Corpuscular Hemoglobin 30.9 pg (27.0-31.2); Mean Corpuscular Volume 96.7 fl (81-99); Mean Platelet Volume 8.3 fl (7.4-10.4); Monocytes # 0.5 K/mm3 (0.1-1.0); Monocytes % 6.7 % (1.7-9.3); Neutrophils # 4.3 K/mm3 (1.8-7.8); Neutrophils % 62.1 % (37.0-80.0); Platelet Count 196 K/mm3 (142-424); Red Blood Count 4.06 M/mm3 (4.20-5.40); Red Cell Distribution Width 14.9 % (11.5-17.5); White Blood Count 6.9 K/mm3 (4.8-10.8)
[2024-06-16 13:13] LABS: Alanine Aminotransferase 49 U/L (12-78); Albumin Level 3.9 g/dl (3.5-5.0); Albumin/Globulin Ratio 1.4 (1.1-1.8); Alkaline Phosphatase 133 U/L (38-126); Anion Gap 10.2 mEq/L (5-15); Aspartate Amino Transferase 54 U/L (14-36); Bilirubin,Total 0.6 mg/dl (0.2-1.3); Blood Urea Nitrogen 13 mg/dl (7-17); Calcium 9.1 mg/dl (8.4-10.2); Carbon Dioxide 28 mmol/L (22.0-30.0); Chloride 104 mmol/L (98-107); Cholesterol 150 mg/dl (140-200); Estimated Glomerular Filt Rate 75 ml/min (>60); GFR (African American) 90 ML/MIN (>60); Globulin 2.8 g/dL (1.3-3.2); Glucose 172 mg/dl (74-100); HDL Cholesterol 50 mg/dl (40-60); Potassium 4.2 mmoL/L (3.5-5.1); Sodium 138 mmol/L (136-145); Total Protein,Serum 6.7 g/dl (6.3-8.2); Triglycerides 221 mg/dl (30-150); VLDL Cholesterol 44 mg/dL (0-40)
[2024-06-16 13:24] LABS: Direct LDL Cholesterol 65.11 mg/dL (100-129)
[2024-06-16 13:37] LABS: Hemoglobin A1C 9.3 % (4.0-6.0)
== END 2024-06-16 23:59 | disposition home or self-care (01) ==
LOC: LAB.DROPOF 12:29
PROVIDERS: PCP Internal Medicine; Visit Provider Internal Medicine
DX: E78.2 Mixed hyperlipidemia (principal); I10 Essential (primary) hypertension; E11.59 Type 2 diabetes mellitus with other circulatory complications; Z79.84 Long term (current) use of oral hypoglycemic drugs; Z79.85 Long-term (current) use of injectable non-insulin antidiabetic drugs
CPT/HCPCS: 80053; 80061; 83036; 85025

== ENCOUNTER 2024-09-23 09:57 | Outpatient (CLI) | payer OTHER, SELFPAY ==
--- NOTE | 2024-09-23 09:59 | US_ITS ---
FINAL REPORT CLINICAL HISTORY: Thyroid cysts COMPARISON: 09/17/2023 FINDINGS: Sonographic images of the thyroid gland were obtained. The right thyroid lobe measures 54 mm. in length. The left thyroid lobe measures 57 mm. in length. The thyroid isthmus measures 5 mm. The thyroid gland is somewhat enlarged. Several nodules are identified. The largest on the right measures 14 x 7 x 13 mm and is either new or larger from the prior study, solid and hypoechoic with macrocalcifications, TR 4 nodule. Left a 7 x 5 x 5 mm cystic TR 1 nodule. A cystic nodule present on the left is improved. IMPRESSION: New or enlarging TR 4 nodule in the right. Recommend follow-up in 6 months per TI-RADS criteria. Reviewed, Interpreted and Dictated by Maxx Murphy III, MD Transcribed by Anupama Sharma Authenticated and [facility]
== END 2024-09-23 23:59 | disposition home or self-care (01) ==
LOC: RAD 09:59
PROVIDERS: PCP Internal Medicine; Visit Provider Internal Medicine
DX: E04.1 Nontoxic single thyroid nodule (principal)
CPT/HCPCS: 76536

== ENCOUNTER 2024-10-08 10:53 | Outpatient (CLI) | payer OTHER, SELFPAY ==
--- NOTE | 2024-10-08 10:58 | XR_ITS ---
FINAL REPORT CLINICAL HISTORY: Neck pain THAT GOES DOWN TO LOWER BACK COMPARISON: None FINDINGS: CERVICAL SPINE 5 views of the cervical spine were obtained. There is no fracture present. There is mild degenerative disc space narrowing at C5-6, C6-7, and C7-T1. There is normal alignment. The bony neuroforamina are widely patent. IMPRESSION: Mild lower cervical degenerative changes. Reviewed, Interpreted and Dictated by Malick Jenkins MD Transcribed by Naheed Cancino Authenticated and . [facility]
== END 2024-10-08 23:59 | disposition home or self-care (01) ==
LOC: RAD 10:56
PROVIDERS: PCP Internal Medicine; Visit Provider Internal Medicine
DX: M54.2 Cervicalgia (principal)
CPT/HCPCS: 72050

== ENCOUNTER 2024-10-13 16:06 | Outpatient (CLI) | payer OTHER, SELFPAY ==
--- NOTE | 2024-10-13 16:07 | MR_ITS ---
PROCEDURE INFORMATION: Exam: MR Lumbar Spine Without Contrast Exam date and time: 10/13/2024 4:37 PM Age: 54 years old Clinical indication: Low back pain; Additional info: Chronic low back pain TECHNIQUE: Imaging protocol: Magnetic resonance imaging of the lumbar spine without contrast. COMPARISON: CT LUMBAR SPINE WO [facility] 11/23/2022 2:25 PM FINDINGS: Bones/joints: The lumbar vertebral bodies are normal in height, without acute marrow edema. Slight anterolisthesis of L3 on L4. Spinal epidural space: There is an increase in epidural fat within the lower lumbar and upper sacral spine, consistent with epidural lipomatosis. Spinal cord: The distal end of the conus medullaris ends at T12-L1, normal in position. Multilevel findings: Degenerative changes are noted from L1-L2 through L3-L4, as well as the T11-12 level, with a decrease in the T2 signal intensity of the discs. T11-T12: At T11-12, there is mild disc bulging without significant spinal canal stenosis. There is no significant neural foraminal narrowing bilaterally. This level is out of the field of view of axial images, limiting the evaluation. T12-L1: At T12-L1, there is mild disc bulging, without significant spinal canal stenosis. No significant neural foraminal narrowing is identified bilaterally. This level is out of the field of view of axial images, limiting the evaluation. L1-L2: There is no significant spinal canal stenosis or neural foraminal narrowing. L2-L3: Bilateral facet arthropathy. There is no significant spinal canal stenosis. Mild left neural foraminal narrowing is identified. There is slight narrowing the inferior aspect of the right neural foramen. L3-L4: Bilateral facet arthropathy with hypertrophy of the ligamentum flavum. A broad-based disc bulge is visualized, with mild narrowing of the thecal sac and narrowing of both lateral recesses. Mild to moderate left and mild right neural foraminal narrowing identified. A left foraminal protrusion is seen. L4-L5: Bilateral facet arthropathy with hypertrophy of the ligamentum flavum. A broad-based disc bulge is visualized, with minimal narrowing of the thecal sac. There is narrowing of both lateral recesses. Mild bilateral neural foraminal narrowing is identified. L5-S1: Bilateral facet arthropathy. The thecal sac markedly tapers at this level. There is no significant neural foraminal narrowing bilaterally. Soft tissues: Edema is seen within the subcutaneous tissues posteriorly. IMPRESSION: 1. Degenerative changes are visualized involving the lumbar and lower thoracic spine, as described above. 2. Mild narrowing of the thecal sac at L3-L4, with minimal thecal sac narrowing at L4-L5. 3. Neural foraminal narrowing from L2-L3 through L4-L5. 4. Epidural lipomatosis. 5. Slight anterolisthesis of L3 on L4.
== END 2024-10-13 23:59 | disposition home or self-care (01) ==
LOC: RAD 16:07
PROVIDERS: PCP Internal Medicine; Visit Provider Internal Medicine
DX: M54.40 Lumbago with sciatica, unspecified side (principal); M48.061 Spinal stenosis, lumbar region without neurogenic claudication
CPT/HCPCS: 72148

== ENCOUNTER 2024-11-05 11:47 | Outpatient (CLI) | payer OTHER, SELFPAY ==
--- NOTE | 2024-11-05 11:49 | XR_ITS ---
FINAL REPORT CLINICAL HISTORY: Right hip pain COMPARISON: None FINDINGS: RIGHT HIP Two views of the right hip demonstrate no acute fracture or dislocation. Mild degenerative change is present. Visualized bony structures are well aligned. No soft tissue abnormality is seen. No focal bony lesions are identified. IMPRESSION: Mild degenerative change with no acute bony abnormality. Reviewed, Interpreted and Dictated by Malick Jenkins MD Transcribed by Pili Hamlin Authenticated and [facility]
--- NOTE | 2024-11-05 11:49 | XR_ITS ---
FINAL REPORT CLINICAL HISTORY: Left hip pain COMPARISON: None FINDINGS: LEFT HIP: 3 views of the left hip demonstrate no acute fracture or dislocation. Mild degenerative changes are present. No focal bony lesion is identified. The visualized bony structures are well aligned. No soft tissue abnormality is seen. IMPRESSION: Mild degenerative change with no acute bony abnormality. Reviewed, Interpreted and Dictated by Malick Jenkins MD Transcribed by Pili Hamlin Authenticated and [facility]
== END 2024-11-05 23:59 | disposition home or self-care (01) ==
LOC: RAD 11:48
PROVIDERS: PCP Internal Medicine; Visit Provider Internal Medicine
DX: M25.551 Pain in right hip (principal); M25.552 Pain in left hip
CPT/HCPCS: 73502

== ENCOUNTER 2024-12-15 09:00 | Outpatient (CLI) | payer OTHER, SELFPAY ==
[2024-12-15 17:39] LABS: Basophils # 0.1 K/mm3 (0-0.2); Basophils % 0.7 % (0.1-2.0); Eosinophils # 0.3 K/mm3 (0.0-0.4); Eosinophils % 3.5 % (0.1-12.0); Hematocrit 38.5 % (37.0-47.0); Lymphocytes # 1.5 K/mm3 (0.7-4.5); Lymphocytes % 19.7 % (10-50); Mean Corpuscular HGB Conc 33.8 g/dL (31.8-35.4); Mean Corpuscular Hemoglobin 30.7 pg (27.0-31.2); Monocytes # 0.6 K/mm3 (0.1-1.0); Monocytes % 8.4 % (1.7-9.3); Neutrophils % 67.3 % (37.0-80.0); Platelet Count 219 K/mm3 (142-424); Red Blood Count 4.23 M/mm3 (4.20-5.40); Red Cell Distribution Width 13.2 % (11.5-17.5); White Blood Count 7.4 K/mm3 (4.8-10.8)
[2024-12-15 18:04] LABS: Alanine Aminotransferase 49 U/L (12-78); Albumin Level 4.8 g/dl (3.5-5.0); Alkaline Phosphatase 150 U/L (38-126); Anion Gap 14.2 mEq/L (5-15); Aspartate Amino Transferase 54 U/L (14-36); Bilirubin,Total 0.9 mg/dl (0.2-1.3); Blood Urea Nitrogen 16 mg/dl (7-17); Calcium 9.4 mg/dl (8.4-10.2); Carbon Dioxide 30 mmol/L (22.0-30.0); Chloride 96 mmol/L (98-107); Chol/HDL Ratio 3.5 (1-3.5); Cholesterol 154 mg/dl (140-200); Estimated Glomerular Filt Rate 65 ml/min (>60); GFR (African American) 79 ML/MIN (>60); Globulin 2.4 g/dL (1.3-3.2); Glucose 195 mg/dl (74-100); HDL Cholesterol 44 mg/dl (40-60); Potassium 4.2 mmoL/L (3.5-5.1); Sodium 136 mmol/L (136-145); Total Protein,Serum 7.2 g/dl (6.3-8.2); Triglycerides 227 mg/dl (30-150); VLDL Cholesterol 45 mg/dL (0-40)
[2024-12-15 18:15] LABS: Direct LDL Cholesterol 68.92 mg/dL (100-129)
[2024-12-15 18:28] LABS: Creatinine,Urine Random 323 mg/dL (Not Estab.)
[2024-12-15 18:31] LABS: Microalbumin/Creatinine Ratio 20.7
== END 2024-12-15 23:59 | disposition home or self-care (01) ==
LOC: LAB.DROPOF 12-16 16:25
PROVIDERS: PCP Internal Medicine; Visit Provider Internal Medicine
DX: E78.5 Hyperlipidemia, unspecified (principal); I10 Essential (primary) hypertension; E11.42 Type 2 diabetes mellitus with diabetic polyneuropathy; Z79.84 Long term (current) use of oral hypoglycemic drugs; Z79.85 Long-term (current) use of injectable non-insulin antidiabetic drugs
CPT/HCPCS: 80053; 80061; 82043; 82570; 83036; 85025

== ENCOUNTER 2025-01-09 19:42 | Emergency (ER) | payer OTHER, SELFPAY ==
[2025-01-09 19:45] VITALS: BP 174/86; PULSE 97; RESP 18; TEMP 36.6; O2SAT 100; BMI 38.9
--- NOTE | 2025-01-09 20:14 | CT_ITS ---
PROCEDURE INFORMATION: Exam: CT Cervical Spine Without Contrast Exam date and time: 01/09/2025 8:31 PM Age: 54 years old Clinical indication: Injury or trauma; Fall; Blunt trauma; Additional info: Fall with head injury TECHNIQUE: Imaging protocol: Computed tomography of the cervical spine without contrast. Radiation optimization: All CT scans at this facility use at least one of these dose optimization techniques: automated exposure control; mA and/or kV adjustment per patient size (includes targeted exams where dose is matched to clinical indication); or iterative reconstruction. COMPARISON: CR XR CERVICAL SPINE 5V 10/08/2024 11:06 AM FINDINGS: Bones: No acute fracture. Normal alignment. No significant disc bulge or herniation. No severe spinal canal stenosis. No significant neural foraminal narrowing. Lungs: Unremarkable visualized [place] Soft tissues: Unremarkable. IMPRESSION: No acute finding identified.
--- NOTE | 2025-01-09 20:14 | CT_ITS ---
PROCEDURE INFORMATION: Exam: CT Head Without Contrast Exam date and time: 01/09/2025 8:29 PM Age: 54 years old Clinical indication: Injury or trauma; Fall; Blunt trauma (contusions or hematomas); Additional info: Fall with head injury TECHNIQUE: Imaging protocol: Computed tomography of the head without contrast. Radiation optimization: All CT scans at this facility use at least one of these dose optimization techniques: automated exposure control; mA and/or kV adjustment per patient size (includes targeted exams where dose is matched to clinical indication); or iterative reconstruction. COMPARISON: CT HEAD/BRAIN WO CON 01/09/2025 8:29 PM FINDINGS: Brain: No hemorrhage. Unremarkable white matter. No mass effect. Cerebral ventricles: No ventriculomegaly. Paranasal sinuses: Visualized sinuses are unremarkable. No fluid levels. Mastoid air cells: Visualized mastoid air cells are well aerated. Bones: Unremarkable. No acute fracture. Soft tissues: Unremarkable. IMPRESSION: No acute intracranial findings identified.
[2025-01-09] MEDS: KETOROLAC 30MG/ML VIAL 30 MG IM (20:25)
[2025-01-09] MEDS: BUTALB/ACETAMINOPHEN/CAFFEINE 50MG/325MG/40MG TAB 2 EACH PO (20:25)
[2025-01-09] MEDS: ONDANSETRON 4MG ODT 4 MG SL (20:26)
[2025-01-09] MEDS: METOCLOPRAMIDE 10MG TABLET 10 MG PO (21:27)
[2025-01-09 21:30] VITALS: BP 128/72; PULSE 74; RESP 16; TEMP 36.6; O2SAT 96
--- NOTE | 2025-01-09 21:32 | ED_ITS ---
Discharge Plan Disposition Patient Disposition: Home, Self-Care Condition: Good Prescriptions Prescriptions: New ondansetron 4 mg tablet,disintegrating 4 mg PO Q8H PRN (Reason: nausea and vomiting) 4 Days Qty: 12 0RF No Action spironolacton-hydrochlorothiaz 25-25 mg tablet 2 tab PO QDAY Rx Instructions: 2-4 tabs daily triamcinolone acetonide 0.1 % cream 1 applic topical Q6H PRN (Reason: psoriasis) Qty: 453.6 1RF sertraline 100 mg tablet 150 mg PO QDAY Qty: 90 1RF naproxen 500 mg tablet 500 mg PO BID PRN (Reason: Pain) meloxicam 15 mg tablet 15 mg PO DAILY Patient Comments: TAKE ONE TABLET BY MOUTH EVERY DAY NEEDED FOR PAIN AND INFLAMMATION --TAKE WITH FOOD-- lorazepam [Ativan] 1 mg tablet 1 mg PO DAILY PRN (Reason: anxiety) Qty: 7 0RF potassium chloride 20 mEq tablet,ER particles/crystals See Rx Instructions .ROUTE .COMPLEX Qty: 90 4RF Dose Instruction: TAKE ONE TABLET BY MOUTH EVERY DAY FOR supplement Rx Instructions: TAKE ONE TABLET BY MOUTH EVERY DAY FOR supplement metoprolol succinate 50 mg tablet extended release 24 hr 50 mg PO DAILY Qty: 90 3RF cyclobenzaprine 5 mg tablet See Rx Instructions .ROUTE .COMPLEX Qty: 60 5RF Dose Instruction: TAKE TWO TABLETS AT BEDTIME FOR fibromyalgia Rx Instructions: TAKE TWO TABLETS AT BEDTIME FOR fibromyalgia loratadine 10 mg tablet See Rx Instructions .ROUTE .COMPLEX Qty: 90 3RF Dose Instruction: TAKE ONE TABLET BY MOUTH EVERY DAY Rx Instructions: TAKE ONE TABLET BY MOUTH EVERY DAY metformin 1,000 mg tablet See Rx Instructions .ROUTE .COMPLEX Qty: 180 1RF Dose Instruction: TAKE ONE TABLET BY MOUTH TWICE DAILY Rx Instructions: TAKE ONE TABLET BY MOUTH TWICE DAILY atorvastatin 80 mg tablet See Rx Instructions .ROUTE .COMPLEX Qty: 90 1RF Dose Instruction: TAKE ONE TABLET BY MOUTH EVERY DAY Rx Instructions: TAKE ONE TABLET BY MOUTH EVERY DAY semaglutide 1 mg/dose (4 mg/3 mL) pen injector 1 mg SQ WEEKLY Qty: 3 2RF losartan 50 mg tablet See Rx Instructions .ROUTE .COMPLEX Qty: 45 1RF Dose Instruction: TAKE 1/2 TABLET BY MOUTH EVERY DAY Rx Instructions: TAKE 1/2 TABLET BY MOUTH EVERY DAY furosemide 20 mg tablet See Rx Instructions .ROUTE .COMPLEX Qty: 90 1RF Dose Instruction: TAKE ONE TABLET BY MOUTH EVERY DAY Rx Instructions: TAKE ONE TABLET BY MOUTH EVERY DAY omeprazole 40 mg capsule,delayed release(DR/EC) See Rx Instructions .ROUTE .COMPLEX Qty: 90 1RF Dose Instruction: TAKE ONE CAPSULE BY MOUTH EVERY DAY FOR acid reflux Rx Instructions: TAKE ONE CAPSULE BY MOUTH EVERY DAY FOR acid reflux aspirin 81 MG tablet,delayed release (DR/EC) 81 mg PO DAILY Referrals Follow up/Referrals: Maurice Kessler MD [Primary Care Provider] - See instructions Activity Restrictions/Add. Instructions Additional Instructions/Restrictions: You were evaluated in the emergency department today. At this time, your CT scans are reassuring and do not demonstrate any brain bleeds or broken bones. Please take Tylenol and ibuprofen every 4-6 hours at home as needed for headache. product support specialist your prescription for Zofran and take as needed for nausea. Please see concussion handout for further instructions on supportive management. Return to the emergency department for new or worsening symptoms. Otherwise, follow-up closely with your primary care provider. Clinical Impressions Clinical Impression: Concussion Stand Alone Forms Stand Alone Forms: Work/School Release Instructions Patient Instructions: DI for Concussion Print Language Print Language: Brazilian Discharge ED Provider: Lizbeth Biswas General Adult HPI General Chief complaint: Headache Stated complaint: AO 01/09/25 1920, fell, hit back of head, nauseous Time Seen by Provider: 01/09/25 20:04 Mode of Arrival: Ambulatory Source of Information: Patient Description of Symptoms (Recalled from ER Triage Doc. by RN): Pt presents for evaluation of headache, back pain, left sided neck pain after falling backwards out of desk chair.. Pt also states she is having nausea. Denies LOC, BT History of Present Illness HPI narrative: This patient is a 54-year-old female with a history of obesity, type 2 diabetes, hypertension, hyperlipidemia, GERD, and SANDEEP presenting to the emergency department for evaluation with concern for head injury. Prior to arrival, patient fell backwards out of a desk chair, hitting her head and neck on the wooden part of a couch. She did not lose consciousness. Since then, she has had a knot on the back of her head, head and neck pain, and has nausea. She takes aspirin but no blood thinners. No other concerns for traumatic injuries noted. No visual disturbance or new numbness or tingling. She was well prior to the fall. Related Data Home Medications ?Medication ?Instructions ?Recorded ?Confirmed aspirin 81 mg tablet,delayed 81 mg PO DAILY Blood thinner 01/19/22 12/15/24 release spironolactone 25 2 tab PO QDAY High blood pressure 12/15/22 12/15/24 mg-hydrochlorothiazide 25 mg tablet naproxen 500 mg tablet 500 mg PO BID PRN Pain 06/12/23 12/15/24 meloxicam 15 mg tablet 15 mg PO DAILY 01/29/24 12/15/24 Previous Rx's ?Medication ?Instructions ?Recorded lorazepam 1 mg tablet (Ativan) 1 mg PO DAILY PRN anxiety #7 tabs 06/26/23 potassium chloride 20 mEq See Rx Instructions .Route 10/18/23 tablet,extended release(part/cryst) .COMPLEX #90 tabs metoprolol succinate 50 mg 50 mg PO DAILY BLOOD PRESSURE #90 04/09/24 tablet,extended release 24 hr tabs cyclobenzaprine 5 mg tablet See Rx Instructions .Route 04/16/24 .COMPLEX #60 tabs loratadine 10 mg tablet See Rx Instructions .Route 05/01/24 .COMPLEX #90 tabs sertraline 100 mg tablet 150 mg (1.5 x 100 mg) PO QDAY mood 09/15/24 #90 tabs triamcinolone acetonide 0.1 % 1 applic topical Q6H PRN psoriasis 09/15/24 topical cream #453.6 grams metformin 1,000 mg tablet See Rx Instructions .Route 10/10/24 .COMPLEX #180 tabs atorvastatin 80 mg tablet See Rx Instructions .Route 10/24/24 .COMPLEX #90 tabs semaglutide 1 mg/dose (4 mg/3 mL) 1 mg (0.75 mL) SQ WEEKLY #3 mL 12/19/24 subcutaneous pen injector furosemide 20 mg tablet See Rx Instructions .Route 12/23/24 .COMPLEX #90 tabs losartan 50 mg tablet See Rx Instructions .Route 12/23/24 .COMPLEX #45 tabs omeprazole 40 mg capsule,delayed See Rx Instructions .Route 01/06/25 release .COMPLEX #90 caps ondansetron 4 mg disintegrating 4 mg PO Q8H PRN nausea and 01/09/25 tablet vomiting 4 days #12 tabs Allergies Allergy/AdvReac Type Severity Reaction Status Date / Time clarithromycin Allergy Unknown Unknown Verified 12/15/24 08:38 allergy reaction escitalopram Allergy Unknown Unknown Verified 12/15/24 08:38 allergy reaction niacin Allergy Unknown Unknown Verified 12/15/24 08:38 allergy reaction rosuvastatin (From Crestor) Allergy Unknown Unknown Verified 12/15/24 08:38 allergy reaction dapagliflozin (From Farxiga) Allergy Verified 12/15/24 08:38 gabapentin Allergy Verified 12/15/24 08:38 [facility] Disclaimer: The information contained in this section may have been updated after the patient was seen, as this information can be updated by other users. Medical History Chronic pelvic pain in female Kidney stone Anxiety Allergies Back pain Pelvic pain Ovarian cyst EMMY (stress urinary incontinence, female) Diastolic dysfunction HTN (hypertension) Sinus tachycardia Abnormal EKG Palpitations Diabetes mellitus HLD (hyperlipidemia) GERD (gastroesophageal reflux disease) Snoring SANDEEP (obstructive sleep apnea) Dyspnea Surgical History History of unilateral salpingectomy History of carpal tunnel surgery Hx of cervical biopsy Hx of breast biopsy History of incision and drainage Hx of wisdom tooth extraction Hx of cholecystectomy Family History Other Diabetes Family history of acute congestive heart failure Graves disease Hypertension Social History Smoking Status: Unknown if ever smoked alcohol intake: never substance use type: denies use current occupational status: employed Travel in the last 8 weeks: None household members: family housing: house current occupation: [employer] current occupational exposures/hazards: No caffeine: Yes Have you lived/traveled outside US in past 30 days?: No Contact w/someone who lives/traveled outside US past 30 days?: No Exposure to someone with infectious disease in past 14 days?: No Do you have a fever (greater than 100.4 F or 38 C)?: No Have you tested positive for COVID-19: No Exposed to someone with COVID-19 in past 14 days?: No Do you have a sore throat?: No Do you have a cough?: No Do you have any weakness?: No Do you have any diarrhea?: No Are you experiencing any unusual bleeding?: No Do you have any muscle aches/pain?: No Do you have any abdominal pain?: No Are you experiencing loss of taste or smell?: No Other Medical History Have you received the Flu Vaccine for this season: Yes Have you received the Pneumonia Vaccine: No ROS Obtained: Yes All systems reviewed & no additional complaints except as documented Physical Exam General General appearance: alert and in no apparent distress Head Head exam: normocephalic Expanded Head Exam Head image: 2 1. Small scalp hematoma Eye Eye exam: Present normal appearance, PERRL and EOMI ENT ENT exam: Present normal exam, normal oropharynx, mucous membranes moist and normal external ear exam Neck Neck exam: Present normal inspection, full ROM and trachea midline; Absent tenderness Chest Chest inspection: Present normal inspection and symmetric chest wall rise; Absent tenderness Respiratory Respiratory exam: Present normal lung sounds bilaterally; Absent respiratory distress, wheezes, stridor or accessory muscle use Cardiovascular Cardiovascular exam: Present regular rate and normal rhythm Abdominal Exam Abdominal exam: Present soft; Absent distention, tenderness or guarding Extremities Exam Extremities exam: Present normal inspection, full ROM and normal capillary refill; Absent tenderness or edema Back Exam Back exam: Present normal inspection and full ROM; Absent tenderness Neurological Exam Neurological exam: Present alert, oriented X3, CN II-XII intact and normal gait; Absent motor sensory deficit Psychiatric Psychiatric exam: Present normal affect and normal mood Skin Skin exam: Present warm and dry Medical Decision Making Medical Records Medical records reviewed: Yes I reviewed the patient's medical records. Screening: Per USPSTF and CDC recommendations, given the prevalence of disease in our region, it is our hospital?s policy to screen for HIV and viral Hepatitis for all patients aged 18 and over and those with ongoing risk factors. Alex Inquiry Pt receiving controlled substance: No Vital Signs: 01/09/25 19:45 01/09/25 21:30 Temperature 98 F 97.9 F Temperature Source Oral Oral Pulse Rate 74 Pulse Rate [Right] 97 H Respiratory Rate 18 16 Blood Pressure 128/72 Blood Pressure [Right Arm] 174/86 H Blood Pressure Mean [Right Arm] 115 Blood Pressure Source Automatic Cuff Blood Pressure Source [Right Arm] Automatic Cuff Blood Pressure Position Supine Blood Pressure Position [Right Arm] Sitting 02 Sat by Pulse Oximetry 100 Oxygen Delivery Method Room Air Lab Data Lab results reviewed: Yes I reviewed the patient's lab results. Orders (Tests/Meds): ED MEDICATIONS Discontinued Medications Generic Name Dose Route Start Last Admin Trade Name Zeyad PRN Reason Stop Dose Admin Acetaminophen/Butalbital/Caffeine 2 each 01/09/25 20:19 01/09/25 20:25 Butalb/Acetaminophen/Caffeine 50mg/325mg/40mg Tab PO 01/09/25 20:20 2 each ONCE ONE Administration Ketorolac Tromethamine 30 mg 01/09/25 20:19 01/09/25 20:25 Ketorolac 30mg/Ml Vial IM 01/09/25 20:20 30 mg ONCE ONE Administration Metoclopramide HCl 10 mg 01/09/25 21:25 01/09/25 21:27 Metoclopramide 10mg Tablet PO 01/09/25 21:26 10 mg ONCE ONE Administration Ondansetron HCl 4 mg 01/09/25 20:19 01/09/25 20:26 Ondansetron 4mg Odt SL 01/09/25 20:20 4 mg ONCE ONE Administration ORDERS Category Date Time Status CT cervical spine wo con Stat Cat Scan 01/09/25 20:[address] head/brain wo con Stat Cat Scan 01/09/25 20:14 Completed Medical Decision Narrative: In summary, this patient is a 54-year-old female presenting to the Emergency Department for evaluation of head injury. Differential diagnoses considered include but are not limited to skull fracture, intracranial hemorrhage, concussion, C-spine fracture, musculoskeletal strain/sprain, polytrauma. Ruling out the most morbid conditions drove assessment. It should be noted patient's history includes hypertension, hyperlipidemia, obesity, type 2 diabetes which may or may not be at goal therapy. This complicates all aspects of care by increasing patient's risk for morbidity. I reviewed patient's past medical records and noted prior PCP evaluation for maintenance of health problems. On exam, the patient is sitting upright in no acute distress. She has a small scalp hematoma but otherwise no obvious traumatic injury noted on clinical exam. She is neurologically intact. Workup included CT head and C-spine without contrast. I independently interpreted CT scan prior to the radiologist read and noted no skull fracture or C-spine fracture, no intracranial hemorrhage. Please see their read for final interpretation. On reassessment, the patient is sitting upright in remains neurologically intact with reassuring vital signs on cardiac telemetry. She had some improvement after administration of Fioricet, IM Toradol, oral Zofran but she continued to complain of nausea. Given this, she was given oral Reglan. Given symptoms have improved and workup and exam are reassuring, I feel the patient is appropriate for discharge home. She was given prescription for Zofran, instructions for supportive management of concussion, and strict return precautions. Critical Care Critical Care Time Critical Care Time: No
== END 2025-01-09 21:31 | disposition home or self-care (01) ==
PROVIDERS: Emergency Provider Emergency Medicine; PCP Internal Medicine
DX: S06.0XAA Concussion with loss of consciousness status unknown, initial encounter (principal); R51.9 Headache, unspecified; M54.9 Dorsalgia, unspecified; M54.2 Cervicalgia; R11.0 Nausea; E66.9 Obesity, unspecified; E11.9 Type 2 diabetes mellitus without complications; I10 Essential (primary) hypertension; E78.5 Hyperlipidemia, unspecified; K21.9 Gastro-esophageal reflux disease without esophagitis; G47.33 Obstructive sleep apnea (adult) (pediatric); W07.XXXA Fall from chair, initial encounter; Y93.89 Activity, other specified; Y92.9 Unspecified place or not applicable
CPT/HCPCS: 70450; 72125; 96372; 99284; J1885; Q0162

== ENCOUNTER 2025-02-02 16:27 | Outpatient (CLI) | payer OTHER, SELFPAY ==
--- NOTE | 2025-02-02 16:30 | MM_ITS ---
PROCEDURE INFORMATION: Exam: MG Bilateral Screening 3D Mammography Exam date and time: 02/02/2025 4:32 PM Age: 54 years old Clinical indication: Screening mammogram TECHNIQUE: Imaging protocol: Bilateral Screening tomosynthesis and 2D mammography including computer-aided detection (CAD) when performed. COMPARISON: 1. MG MM DIG SCREENING MAMM BI W/CAD 02/01/2024 9:48 AM 2. MG MM DIG SCREENING MAMM BI W/CAD 01/29/2023 1:15 PM 3. MG SCBI MM Dig screening mamm BI w/CAD 09/09/2018 9:01 AM 4. MG DMSB DIG MAMM-SCREEN GONZALEZ W/CAD 08/02/2017 9:23 AM FINDINGS: MAMMOGRAPHY: Breast composition: The breast is heterogeneously dense, which may obscure small masses. Mass: Stable benign-appearing subcentimeter nodules are present in the right breast. No new or morphologically suspicious nodule has developed to suggest malignancy. Architectural distortion: No new or suspicious architectural distortion. Calcifications: No new or suspicious calcifications are present Asymmetric density: No new or suspicious asymmetric density is present Skin thickening: None. Axillary adenopathy: None. IMPRESSION: No mammographic evidence of malignancy. Recommend annual screening mammography unless otherwise clinically indicated. ASSESSMENT: BI-RADS category 2: Benign.
== END 2025-02-02 23:59 | disposition home or self-care (01) ==
LOC: RAD 16:27
PROVIDERS: PCP Internal Medicine; Visit Provider Obstetrics & Gynecology
DX: Z12.31 Encounter for screening mammogram for malignant neoplasm of breast (principal)
CPT/HCPCS: 77063; 77067

== ENCOUNTER 2025-02-10 15:16 | Outpatient (CLI) | payer OTHER, SELFPAY ==
--- NOTE | 2025-02-10 16:00 | US_ITS ---
PROCEDURE: US TRANSVAGINAL CLINICAL INDICATION: chronic RLQ COMPARISON: US US TRANSVAGINAL from 01/29/2023 US US TRANSVAGINAL from 01/31/2024 FINDINGS: Transvaginal sonographic images of the pelvis were obtained. UTERUS: 5.6cm x 3.1cmx 3.1cm anteverted with a combined endometrial thickness of 5.6mm. There continues to be a cluster of cysts at the upper cervix/lower uterine segment that could be nabothian cysts. There is a small linear echogenic area within the upper cervix. No posterior shadowing is seen. LEFT OVARY: 2.6 cmx1.9 cmx2cm with a volume of 5ml. The left ovary has an inhomogeneous appearance and it was difficult to get Doppler flow. RIGHT OVARY: 1.8cmx 1.3cmx2.3cm with a volume of 2.8ml. Difficult to visualize the right ovary. Doppler flow is noted. Both ovaries are seen and appear normal. Doppler flow to both ovaries are seen. There is trace fluid in the cul-de-sac. IMPRESSION: 1. Anteverted uterus normal in shape and size. The endometrium is thin measuring 5.6 mm. 2. There is a persist small cluster of nabothian cysts in the lower uterine segment/upper cervix. 3. Both ovaries are seen and appear normal. 4. There is trace fluid in the cul-de-sac. Dictated by: Turner Arroyo MD 02/10/2025 20:19 Turner Arroyo MD in OV 02/10/2025 20:19
== END 2025-02-10 23:59 | disposition home or self-care (01) ==
LOC: RAD 15:17
PROVIDERS: PCP Internal Medicine; Visit Provider Obstetrics & Gynecology
DX: R10.2 Pelvic and perineal pain (principal); G89.29 Other chronic pain
CPT/HCPCS: 76830

== ENCOUNTER 2025-03-30 12:34 | Outpatient (CLI) | payer OTHER, SELFPAY ==
--- NOTE | 2025-03-30 12:36 | XR_ITS ---
FINAL REPORT TECHNIQUE: Chest PA & Lateral CLINICAL HISTORY: cough, wheezing COMPARISON: None FINDINGS: 2 views of the chest were performed. The heart size is normal. The mediastinum is within normal limits. There is no acute cardiopulmonary process. There are no pleural effusions. There is no pneumothorax. The bony thorax appears intact. IMPRESSION: No acute cardiopulmonary process. Reviewed, Interpreted and Dictated by Judd Hernandez MD Transcribed by Pili Hamlin Authenticated and [facility]
--- OUTSIDE RECORDS SUMMARY | 2025-03-30 12:37 | XMS_ITS | Clinical Summary ---
Author Organization Healthcare Address [address] [place] [address] Care Team Providers Care Clinical Admissions Manager Name Role Phone Maurice Kessler MD Primary Care Provider [phone] Josesito Guzman MD Unavailable [phone] Allergies Active Allergy Reactions Criticality Noted Date Comments Clarithromycin Hives Medium 11/13/2022 Rosuvastatin Other - please docum ent in the comment field Low 11/13/2022 Gabapentin Swelling High 11/13/2022 Escitalopram Other - please docum ent in the comment field Low 11/13/2022 Niacin Rash Low 11/13/2022 Medications atorvastatin (Lipitor) 80 MG tablet Take 80 mg by mouth 1 (one) time each day. 3 Active Trulicity 4.5 MG/0.5ML inj. pen 3 Active loratadine (Claritin) 10 MG tablet Take 10 mg by mouth 1 (one) time each day. 2 Active losartan (Cozaar) 25 MG tablet Take 25 mg by mouth 1 (one) time each day. 3 Active metFORMIN (Glucophage) 1000 MG tablet Take 1,000 mg by mouth 2 (two) times a day. 3 Active metoprolol succinate XL (Toprol-XL) 50 MG 24 hr tablet Take 50 mg by mouth 1 (one) time each day. 3 Active omeprazole (PriLOSEC) [address] capsule Take 40 mg by mouth 1 (one) time each day. 3 Active pioglitazone (Actos) 15 MG tablet TAKE ONE TABLET BY MOUTH EVERY DAY FOR diabetes 3 Active potassium chloride CR (Klor-Con M20) 20 MEQ ER tablet Take 20 mEq by mouth 1 (one) time each day. 3 Active sertraline (Zoloft) 100 MG tablet Take 150 mg by mouth 1 (one) time each day. 3 Active spironolactone- hydroCHLOROthia zide (Aldactazide) 25-25 MG tablet take 2 TO 4 tablets BY MOUTH EVERY DAY 3 Active triamcinolone (Kenalog) 0.1 % cream APPLY TOPICALLY TO THE AFFECTED AREA(S) (RASH) THREE TIMES DAILY DIRECTED -- FOR EXTERNAL USE ONLY-- 3 Active aspirin 81 MG EC tablet Take 81 mg by mouth 1 (one) time each day. Active Social History Tobacco Use Types Packs/Day Years Used Date Smoking Tobacco: Never Smokeless Tobacco: Never Tobacco Cessation:Counseling Given: Not Answered Alcohol Use Standard Drinks/Week Comments Never 0 (1 standard drink = 0.6 oz pur e alcohol) Comments Unknown Sex and Gender Information Value Date Recorded Sex Assigned at Not on file Legal Sex Female 10:32 AM EST Gender Identity Not on file Sexual Orientation Not on file Last Filed Vital Signs Vital Sign Reading Time Taken Comments Blood Pressure - - Pulse - - Temperature - - Respiratory Rate 18 11/13/2022 8:29 AM EST Oxygen Saturation - - Inhaled Oxygen Concentration - - Weight 117 kg (258 lb 3.2 oz) 11/13/2022 8:29 AM EST Height 157.5 cm (5' 2 ) 11/13/2022 8:29 AM EST Body Mass Index 47.23 11/13/2022 8:29 AM EST Plan of Treatment Health Maintenance Due Date Last Done Comments [facility]-Depression Screening 1970 [facility]-HIV Screening 1970 [facility]-Hepatitis C Screening 1970 [facility]-/Child/Adol SDOH Screenings 1970 [facility]- SDOH Screenings 1988 [facility]-Adult SDOH Screenings 1988 [facility]-DTaP,Tdap,and Td Vaccine s (1 - Tdap) 1989 [facility]-Hepatitis B Vaccines (1 of 3 - 19+ 3-dose series) 1989 [facility]-Pap Smear 1991 [facility]-Cervical Cancer Screening 2000 [facility]-HPV/Cotest 2000 CT Colonography 2015 Colonoscopy 2015 FIT-DNA 2015 FIT 2015 FOBT 2015 Sigmoidoscopy 2015 [facility]-Colorectal Cancer Screening 2015 [facility]-Breast Cancer Screening 2020 [facility]-Pneumococcal Vaccine: 50 + Years (1 of 1 - PCV) 2020 [facility]-Zoster Vaccines (1 of 2) 2020 [facility]-FFSWR-04 Vaccine ( season) 2024 08/26/2021, 12/06/2020, 11/01/2020 [facility]-Influenza Vaccine (Seaso n Ended) 2025 [facility]-Obesity Intervention Completed 11/13/2022 HPV Vaccines Aged Out No longer eligi ble based on patient's age to complete this topic [facility]-HIB Vaccines Aged Out No longer e ligible based on patient's age to complete this topic [facility]-Hepatitis A Vaccines Aged Out No longer eligible based on patient's age to complete this topic [facility]-IPV Vaccines Aged Out No longer e ligible based on patient's age to complete this topic [facility]-Rotavirus Vaccines Aged Out No lo nger eligible based on patient's age to complete this topic Insurance [facility] Care Teams Clinical Admissions Manager Relationship Specialty Start Date End Date Maurice Kessler MD [address] [facility] [address] [place] [address] PCP - General 11/13/22 Josesito Guzman MD [address] [place] [address] Surgeon Neurosurgery 11/13/22
--- OUTSIDE RECORDS SUMMARY | 2025-03-30 12:37 | XMS_ITS | Encounter Summary ---
Author Organization Healthcare Address [address] [place] [address] Care Team Providers Care Supervisor Steno Pool Name Role Phone Maurice Kessler MD Primary Care Provider [phone] Josesito Guzman MD Unavailable [phone] Encounter Details Date Type Department Care Team (Late st Contact Info) Description 11/23/2022 Orders Only External Location [address] [place] [address] Lashaun Escobar PA [address] [place] [address] Social History Tobacco Use Types Packs/Day Years Used Date Smoking Tobacco: Never Smokeless Tobacco: Never Alcohol Use Standard Drinks/Week Comments Never 0 (1 standard drink = 0.6 oz pur e alcohol) Comments Unknown Sex and Gender Information Value Date Recorded Sex Assigned at Not on file Legal Sex Female 10:32 AM EST Gender Identity Not on file Sexual Orientation Not on file COVID-19 Exposure Response Date Recorded In the last 10 days, have yo u been in contact with someone who was confirmed or suspected to have Coronavirus/COVID-19? No / Unsure 11/13/2022 8:08 AM EST documented as of this encounter Plan of Treatment Not on file documented as of this encounter Procedures Procedure Name Priority Date/Time Associated Diagnosis Comments CT NEURO OUTSIDE IMAGES 11/23/2022 2:25 PM EST documented in this encounter Results * CT NEURO OUTSIDE IMAGES (11/23/2022 2:25 PM EST) Anatomical Region Laterality Modality Computed Tomogra phy 11/23/2022 2:25 PM EST Lashaun RIOS IMG CT PROCEDURES Final Result documented in this encounter Visit Diagnoses Not on filedocumented in this encounter Additional Health Concerns Assessment Noted Time A fall risk assessment has been complete d for the patient 11/13/2022 8:39 AM EST A Body Mass Index follow-up plan has been documented for the patient 11/13/2022 9:53 AM EST documented as of this encounter Care Teams Supervisor Steno Pool Relationship Specialty Start Date End Date Maurice Kessler MD [address] [place] [address] [address] [place] [address] PCP - General 11/13/22 Josesito Guzman MD [address] [facility] [address] [place] [address] Surgeon Neurosurgery 11/13/22 documented as of this encounter
== END 2025-03-30 23:59 | disposition home or self-care (01) ==
LOC: RAD 12:35
PROVIDERS: PCP Internal Medicine; Visit Provider Student in an Organized Health Care Education/Training Program
DX: R05.9 Cough, unspecified (principal); R06.2 Wheezing; R52 Pain, unspecified
CPT/HCPCS: 71046; 87635

== ENCOUNTER 2025-05-11 10:27 | Outpatient (CLI) | payer OTHER, SELFPAY ==
--- NOTE | 2025-05-11 10:30 | US_ITS ---
FINAL REPORT TECHNIQUE: Real-time grayscale and color ultrasound of the thyroid was performed. CLINICAL HISTORY: 6-month follow-up on right thyroid nodule COMPARISON: 09/23/2024 FINDINGS: The thyroid gland measures 50 x 19 x 16 mm on the right and 50 x 18 x 17 mm on the left. The isthmus measures 5 mm. The parenchyma is unremarkable . Nodules: Heterogeneous lesion in the right lobe measures up to 13 mm, not significantly changed, and classified as a TR 4 nodule. Also an 11 mm colloid cyst previously measured 8 mm in the right lobe. Two lesions in the left lobe: Stable solid 4 mm TR 4 nodule and a 6 mm benign cyst. IMPRESSION: Stable cystic and solid lesions as above. Twelve month follow-up recommended per TI-RADS criteria. Reviewed, Interpreted and Dictated by Malick Jenkins MD Transcribed by Anupama Sharma Authenticated and [facility]
--- OUTSIDE RECORDS SUMMARY | 2025-05-11 10:35 | XMS_ITS | Encounter Summary ---
Author Organization Healthcare Address [address] [place] [address] Care Team Providers Care Paleontological Helper Name Role Phone Maurice Kessler MD Primary Care Provider [phone] Josesito Guzman MD Unavailable [phone] Encounter Details Date Type Department Care Team (Late st Contact Info) Description 11/23/2022 Orders Only External Location [address] [place] [address] Lashaun Escobar PA [address] [place] [address] Social History Tobacco Use Types [...] documented as of this encounter Care Teams Paleontological Helper Relationship Specialty Start Date End Date Maurice Kessler MD [address] [place] [address] [address] [place] [address] PCP - General 11/13/22 Josesito Guzman MD [address] [facility] [address] [place] [address] Surgeon Neurosurgery 11/13/22 documented as of this encounter
--- OUTSIDE RECORDS SUMMARY | 2025-05-11 10:35 | XMS_ITS | Clinical Summary ---
Author Organization Healthcare Address [address] [place] [address] Care Team Providers Care Vascular Manager Name Role Phone Maurice Kessler MD Primary Care Provider [phone] Josesito Guzman MD Unavailable [phone] Allergies Active Allergy Reactions Criticality Noted [...] [facility]-HIV Screening 1970 [facility]-Hepatitis C Screening 1970 [facility]-Infant/Child/Adol SDOH Screenings 1970 [facility]- SDOH Screenings 1988 [...] 2020 [facility]-Zoster Vaccines (1 of 2) 2020 [id number] Vaccine ( season) 2024 08/26/2021, 12/06/2020, 11/01/2020 [facility]-Influenza Vaccine (#1) 2025 [facility]-Obesity Intervention Completed 11/13/2022 HPV Vaccines [...] patient's age to complete this topic Insurance Care Teams Vascular Manager Relationship Specialty Start Date End Date Maurice Kessler MD [address] [place] [address] [address] [place] [address] PCP - General 11/13/22 Josesito Guzman MD [address] [place] [address] Surgeon Neurosurgery 11/13/22
== END 2025-05-11 23:59 | disposition home or self-care (01) ==
LOC: RAD 10:28
PROVIDERS: PCP Internal Medicine; Visit Provider Internal Medicine
DX: E04.2 Nontoxic multinodular goiter (principal)
CPT/HCPCS: 76536

== ENCOUNTER 2025-05-29 09:35 | Outpatient (CLI) | payer OTHER, SELFPAY ==
--- OUTSIDE RECORDS SUMMARY | 2025-05-29 09:37 | XMS_ITS | Clinical Summary ---
Author Organization Healthcare Address [address] [place] [address] Care Team Providers Care Metal Mover Name Role Phone Maurice Kessler MD Primary Care Provider Josesito Guzman MD Unavailable [phone] Allergies Active Allergy Reactions Criticality Noted [...] 2020 [facility]-Zoster Vaccines (1 of 2) 2020 [id number] Vaccine ( season) 2024 08/26/2021, 12/06/2020, 11/01/2020 [...] to complete this topic Insurance Care Teams Metal Mover Relationship Specialty Start Date End Date Maurice Kessler MD [address] [place] [address] [address] [place] [address] PCP - General 11/13/22 Josesito Guzman MD [address] [place] [address] Surgeon Neurosurgery 11/13/22
--- OUTSIDE RECORDS SUMMARY | 2025-05-29 09:37 | XMS_ITS | Encounter Summary ---
Author Organization Healthcare Address [address] [place] [address] Care Team Providers Care Jewel Inspector Name Role Phone Maurice Kessler MD Primary Care Provider [phone] Josesito Guzman MD Unavailable [phone] Encounter Details Date Type Department Care Team (Late st Contact Info) Description 11/23/2022 Orders Only External Location [address] [place] [address] Lashaun Escobar PA [address] [place] [address] Social History Tobacco Use Types [...] documented as of this encounter Care Teams Jewel Inspector Relationship Specialty Start Date End Date Maurice Kessler MD [address] [place] [address] [address] [place] [address] PCP - General 11/13/22 Josesito Guzman MD [address] [facility] [address] [place] [address] Surgeon Neurosurgery 11/13/22 documented as of this encounter
[2025-05-29 10:10] LABS: Alanine Aminotransferase 50 U/L (12-78); Albumin Level 4.6 g/dl (3.5-5.0); Alkaline Phosphatase 156 U/L (38-126); Aspartate Amino Transferase 50 U/L (14-36); Bilirubin,Direct 0.1 mg/dl (0.0-0.4); Bilirubin,Indirect 0.7 mg/dL (0.0-0.9); Bilirubin,Total 0.8 mg/dl (0.2-1.3); Bilirubin,Unconjugated 0.6 mg/dL (0.0-1.1); Cholesterol 140 mg/dl (140-200); HDL Cholesterol 48 mg/dl (40-60); Total Protein,Serum 7.2 g/dl (6.3-8.2); Triglycerides 237 mg/dl (30-150)
== END 2025-05-29 23:59 | disposition home or self-care (01) ==
LOC: LAB 09:35
PROVIDERS: PCP Internal Medicine; Visit Provider Physician Assistant
DX: E78.2 Mixed hyperlipidemia (principal); I10 Essential (primary) hypertension
CPT/HCPCS: 36415; 80061; 80076

== ENCOUNTER 2025-06-16 09:10 | Outpatient (CLI) | payer OTHER, SELFPAY ==
[2025-06-16 14:46] LABS: Albumin Level 4.5 g/dl (3.5-5.0); Chloride 99 mmol/L (98-107)
[2025-06-16 14:47] LABS: Potassium 4.2 mmoL/L (3.5-5.1); Sodium 139 mmol/L (136-145)
[2025-06-16 14:49] LABS: Alanine Aminotransferase 42 U/L (12-78); Anion Gap 16.2 mEq/L (5-15); Aspartate Amino Transferase 51 U/L (14-36); Blood Urea Nitrogen 18 mg/dl (7-17); Carbon Dioxide 28 mmol/L (22.0-30.0); Creatinine,Serum 0.90 mg/dl (0.52-1.04); Estimated Glomerular Filt Rate 65 ml/min (>60); GFR (African American) 79 ML/MIN (>60)
[2025-06-16 14:50] LABS: Albumin/Globulin Ratio 1.8 (1.1-1.8); Alkaline Phosphatase 133 U/L (38-126); Bilirubin,Total 0.8 mg/dl (0.2-1.3); Calcium 9.7 mg/dl (8.4-10.2); Cholesterol 140 mg/dl (140-200); Globulin 2.5 g/dL (1.3-3.2); Glucose 221 mg/dl (74-100); HDL Cholesterol 47 mg/dl (40-60); Total Protein,Serum 7.0 g/dl (6.3-8.2); Triglycerides 232 mg/dl (30-150)
[2025-06-16 15:10] LABS: Hemoglobin A1C 8.6 % (4.0-6.0)
[2025-06-16 15:22] LABS: Thyroid Stimulating Hormone 1.38 uIU/mL (0.465-4.68)
--- OUTSIDE RECORDS SUMMARY | 2025-06-17 12:57 | XMS_ITS | Clinical Summary ---
Author Organization Healthcare Address [address] [place] [address] Care Team Providers Care Emergency Management System Director Name Role Phone Maurice Kessler MD Primary Care Provider [phone] Josesito Guzman MD Unavailable [phone] Allergies Active Allergy Reactions Criticality Noted [...] 2020 [facility]-Zoster Vaccines (1 of 2) 2020 [id number] Vaccine ( season) 2024 08/26/2021, 12/06/2020, 11/01/2020 [...] to complete this topic Insurance Care Teams Emergency Management System Director Relationship Specialty Start Date End Date Maurice Kessler MD [address] [place] [address] [address] [place] [address] PCP - General 11/13/22 Josesito Guzman MD [address] [place] [address] Surgeon Neurosurgery 11/13/22
--- OUTSIDE RECORDS SUMMARY | 2025-06-17 12:57 | XMS_ITS | Encounter Summary ---
Author Organization Healthcare Address [address] [place] [address] Care Team Providers Care Networking Engineer Name Role Phone Maurice Kessler MD Primary Care Provider [phone] Josesito Guzman MD Unavailable [phone] Encounter Details Date Type Department Care Team (Late st Contact Info) Description 11/23/2022 Orders Only External Location [address] [place] [address] Lashaun Escobar PA [address] [place] [address] Social History Tobacco Use Types [...] documented as of this encounter Care Teams Networking Engineer Relationship Specialty Start Date End Date Maurice Kessler MD [address] [place] [address] [address] [place] [address] PCP - General 11/13/22 Josesito Guzman MD [address] [facility] [address] [place] [address] Surgeon Neurosurgery 11/13/22 documented as of this encounter
== END 2025-06-16 23:59 | disposition home or self-care (01) ==
LOC: LAB.DROPOF 06-17 12:49
PROVIDERS: PCP Internal Medicine; Visit Provider Internal Medicine
DX: E04.1 Nontoxic single thyroid nodule (principal); E11.65 Type 2 diabetes mellitus with hyperglycemia; E11.42 Type 2 diabetes mellitus with diabetic polyneuropathy; E11.59 Type 2 diabetes mellitus with other circulatory complications; E78.5 Hyperlipidemia, unspecified; I10 Essential (primary) hypertension; E66.01 Morbid (severe) obesity due to excess calories; R53.83 Other fatigue
CPT/HCPCS: 80053; 80061; 83036; 84443